=== PATIENT | female | born 1995 | race Caucasian/White ===

== ENCOUNTER 2017-11-09 17:15 | Emergency (ER) | payer MEDICAID ==
--- NOTE | 2017-11-09 17:26 | ED Physician Documentation ---
PD HPI CHEST PAIN - Stated complaint Stated Complaint: PALPITATIONS - Chief complaint Chief Complaint: Cardiac - History obtained from History obtained from: Patient - History of Present Illness Timing - onset: Other (21-year-old woman with history of SVT, she was on metoprolol but stopped it during , she delivered 11 months ago and since then has had increasing episodes of SVT, she restarted her metoprolol 25 mg twice a day. Over the last month to she started to have new palpitations, about once a day she feels like her heartbeat skips. It lasts for only seconds but then she has residual chest pain and weakness in the left arm for a minute or 2.) Review of Systems Constitutional: denies: Fever, Chills Cardiac: reports: Chest pain / pressure, Palpitations. denies: Pedal edema, Calf pain Respiratory: denies: Dyspnea, Cough, Hemoptysis, Wheezing GI: denies: Abdominal Pain PD PAST MEDICAL HISTORY - Present Medications Home Medications: Ambulatory Orders Medication Instructions Recorded Confirmed Metoprolol Tartrate [Lopressor] 25 mg pe PO BID 11/09/17 11/09/17 - Allergies Allergies/Adverse Reactions: Allergies Allergy/AdvReac Type Severity Reaction Status Date / Time Iodinated Contrast- Oral and Allergy Unknown Verified 11/09/17 17:25 IV Dye PD ED PE NORMAL - Vitals Vital signs reviewed: Yes - General General: Alert and oriented X 3, No acute distress - HEENT HEENT: PERRL, EOMI - Neck Neck: Supple, no meningeal sign, No bony TTP - Cardiac Cardiac: RRR, No murmur - Respiratory Respiratory: No respiratory distress, Clear bilaterally - Abdomen Abdomen: Non tender - Extremities Extremities: No edema, No calf tenderness / cord - Neuro Neuro: Alert and oriented X 3, Normal speech Results - Vitals Vitals: Vital Signs - 24 hr 11/09/17 11/09/17 17:20 18:12 Temperature 37.4 C Heart Rate 92 72 Respiratory 22 16 Rate Blood Pressure 152/89 H 115/74 O2 Saturation 97 97 Oxygen O2 Source Room air - EKG (time done) 1728 Rate: Rate (enter#) (74) Rhythm: NSR [place]: Normal Intervals: Normal [place] QRS: Normal Ischemia: Normal ST segments Computer interpretation: Agree with computer - Labs Labs: Laboratory Tests 11/09/17 11/09/17 11/09/17 17:40 17:40 18:05 WBC 8.8 RBC 4.55 Hgb 13.0 Hct 38.4 MCV 84.3 MCH 28.6 MCHC 33.9 RDW 13.6 Plt Count 239 MPV 9.0 Neut # (Auto) 5.6 Lymph # (Auto) 2.0 [place] # (Auto) 0.8 Eos # (Auto) 0.3 Baso # (Auto) 0.1 Absolute Nucleated RBC 0.00 Nucleated RBC % 0.0 Sodium Potassium Chloride Carbon Dioxide Anion Gap BUN Creatinine Estimated GFR (MDRD) Glucose Calcium Magnesium Total Bilirubin AST ALT Alkaline Phosphatase Total Protein Albumin Globulin Albumin/Globulin Ratio Lipase Urine Color YELLOW Urine Clarity CLEAR Urine pH 7.5 Ur Specific [place] 1.010 Urine Protein NEGATIVE Urine Glucose (UA) NEGATIVE Urine Ketones NEGATIVE Urine Occult Blood NEGATIVE Urine Nitrite NEGATIVE Urine Bilirubin NEGATIVE Urine Urobilinogen 0.2 (NORMAL) Ur Leukocyte Esterase NEGATIVE Ur Microscopic Review NOT INDICATED Urine Culture Comments NOT INDICATED Urine HCG, Qual NEGATIVE Urine Opiates Screen NEGATIVE Ur Oxycodone Screen NEGATIVE Urine Methadone Screen NEGATIVE Ur Propoxyphene Screen NEGATIVE Ur Barbiturates Screen NEGATIVE Ur Tricyclics Screen NEGATIVE Ur Phencyclidine Scrn NEGATIVE Ur Amphetamine Screen NEGATIVE U Methamphetamines Scrn NEGATIVE U Benzodiazepines Scrn NEGATIVE Urine Cocaine Screen NEGATIVE U Cannabinoids Screen NEGATIVE 11/09/17 18:05 WBC RBC Hgb Hct MCV MCH MCHC RDW Plt Count MPV Neut # (Auto) Lymph # (Auto) [place] # (Auto) Eos # (Auto) Baso # (Auto) Absolute Nucleated RBC Nucleated RBC % Sodium 139 Potassium 3.6 Chloride 106 Carbon Dioxide 23 Anion Gap 10.0 BUN 19 Creatinine 0.5 Estimated GFR (MDRD) 156 Glucose 91 Calcium 8.7 Magnesium 1.7 Total Bilirubin 0.4 AST 12 ALT 17 Alkaline Phosphatase 56 Total Protein 6.8 Albumin 3.5 Globulin 3.3 Albumin/Globulin Ratio 1.1 Lipase 22 Urine Color Urine Clarity Urine pH Ur Specific [place] Urine Protein Urine Glucose (UA) Urine Ketones Urine Occult Blood Urine Nitrite Urine Bilirubin Urine Urobilinogen Ur Leukocyte Esterase Ur Microscopic Review Urine Culture Comments Urine HCG, Qual Urine Opiates Screen Ur Oxycodone Screen Urine Methadone Screen Ur Propoxyphene Screen Ur Barbiturates Screen Ur Tricyclics Screen Ur Phencyclidine Scrn Ur Amphetamine Screen U Methamphetamines Scrn U Benzodiazepines Scrn Urine Cocaine Screen U Cannabinoids Screen PD MEDICAL DECISION MAKING - ED course ED course: Her description sounds like PVCs, around 6:20 PM she pressed the call vega and had felt 1. She was on the monitor and I rewound for about 5-10 minutes and saw no ectopy at all. - Sepsis Event Vital Signs: Vital Signs - 24 hr 11/09/17 11/09/17 17:20 18:12 Temperature 37.4 C Heart Rate 92 72 Respiratory 22 16 Rate Blood Pressure 152/89 H 115/74 O2 Saturation 97 97 Oxygen O2 Source Room air Departure - Departure Disposition: 01 Home, Self Care Clinical Impression: Heart palpitations Condition: Good Record reviewed to determine appropriate education?: Yes Instructions: ED Palpitations Comments: There were no abnormal heartbeats while you were monitored here. If you have persistent symptoms can talk with your doctor about a "Holter monitor" which you can wear for an extended period of time to identify any arrhythmias/ abnormal heart rhythms.
[2017-11-09 18:08] LABS: MUDS CUTOFF CONCENTRATIONS CUTOFF CONC BELOW:
[2017-11-09 18:11] LABS: BILIRUBIN,URINE NEGATIVE (NEGATIVE); GLUCOSE, URINE (UA) NEGATIVE (NEGATIVE); KETONES,URINE (UA) NEGATIVE (NEGATIVE); LEUKOCYTE ESTERASE, URINE NEGATIVE (NEGATIVE); NITRITE,URINE NEGATIVE (NEGATIVE); OCCULT BLOOD,URINE NEGATIVE (NEGATIVE); PH,URINE 7.5 PH (5.0-7.5); PROTEIN,URINE NEGATIVE (NEGATIVE); UROBILINOGEN,URINE 0.2 (NORMAL) E.U./dL (NORMAL)
[2017-11-09 18:13] LABS: CLARITY,URINE CLEAR (CLEAR); HCG UR QUAL NEGATIVE
[2017-11-09 18:13] LABS: BASOPHILS # (AUTO) 0.1 10^3/uL (0.0-0.1); BASOPHILS % (AUTO) 0.7 %; EOSINOPHILS # (AUTO) 0.3 10^3/uL (0.0-0.7); EOSINOPHILS % (AUTO) 3.9 %; LYMPHOCYTES % (AUTO) 23.1 %; MEAN CORPUSCULAR HEMOGLOBIN 28.6 pg (27.0-31.0); MEAN CORPUSCULAR HGB CONC 33.9 g/dL (32.0-36.0); MEAN CORPUSCULAR VOLUME 84.3 fL (81.0-99.0); MONOCYTES # (AUTO) 0.8 10^3/uL (0.0-1.0); MONOCYTES % (AUTO) 9.2 %; NEUTROPHILS # (AUTO) 5.6 10^3/uL (1.5-6.6); NEUTROPHILS % (AUTO) 63.1 %; PLT - PLATELET COUNT 239 10^3/uL (130-450); RED BLOOD COUNT 4.55 10^6/uL (4.20-5.40); RED CELL DISTRIBUTION WIDTH 13.6 % (12.0-15.0); WHITE BLOOD COUNT 8.8 x10^3/uL (4.8-10.8)
[2017-11-09 18:20] LABS: AMPHETAMINE SCREEN,URINE NEGATIVE (NEGATIVE); BENZODIAZEPINES SCREEN, URINE NEGATIVE (NEGATIVE); COCAINE SCREEN URINE NEGATIVE (NEGATIVE); METHADONE SCREEN, URINE NEGATIVE (NEGATIVE); METHAMPHETAMINES SCREEN, URINE NEGATIVE (NEGATIVE); OPIATE SCREEN, URINE NEGATIVE (NEGATIVE); OXYCODONE SCREEN, URINE NEGATIVE (NEGATIVE); TRICYCLIC ANTIDEPRESSANT,URINE NEGATIVE (NEGATIVE)
[2017-11-09 18:21] LABS: PROPOXYPHENE SCREEN, URINE NEGATIVE (NEGATIVE)
[2017-11-09 18:24] LABS: ALBUMIN 3.5 g/dL (3.2-5.5); ALBUMIN/GLOBULIN RATIO 1.1 (1.0-2.2); BILIRUBIN,TOTAL 0.4 mg/dL (0.2-1.0); CALCIUM 8.7 mg/dL (8.5-10.3); CREATININE 0.5 mg/dL (0.4-1.0); MAGNESIUM 1.7 mg/dL (1.7-2.8); TOTAL PROTEIN 6.8 g/dL (6.7-8.2)
[2017-11-09 18:52] VITALS: BP 116/76
== END 2017-11-09 18:51 | disposition home or self-care (01) ==
LOC: ED 17:15
DX: R00.2 Palpitations (principal)
CPT/HCPCS: 36415; 80053; 80306; 81001; 81003; 81025; 83690; 83735; 84443; 85025; 87086; 93005; 99283

== ENCOUNTER 2017-12-11 00:19 | Emergency (ER) | payer MEDICAID ==
[2017-12-11 00:32] VITALS: BP 114/79
[2017-12-11 00:42] LABS: BILIRUBIN,URINE NEGATIVE (NEGATIVE); GLUCOSE, URINE (UA) NEGATIVE (NEGATIVE); KETONES,URINE (UA) NEGATIVE (NEGATIVE); LEUKOCYTE ESTERASE, URINE NEGATIVE (NEGATIVE); NITRITE,URINE NEGATIVE (NEGATIVE); OCCULT BLOOD,URINE NEGATIVE (NEGATIVE); PROTEIN,URINE NEGATIVE (NEGATIVE); UROBILINOGEN,URINE 0.2 (NORMAL) E.U./dL (NORMAL)
[2017-12-11 00:44] LABS: CLARITY,URINE CLEAR (CLEAR); HCG UR QUAL NEGATIVE
[2017-12-11] MEDS ORDERED: IBUPROFEN 600 MG TABLET PO STA (00:53)
--- NOTE | 2017-12-11 00:57 | ED Physician Documentation ---
PD HPI FEMALE - Stated complaint Stated Complaint: LOWER ABDOMINAL PAIN - Chief complaint Chief Complaint: Abd Pain - History obtained from History obtained from: Patient - History of Present Illness Timing - onset: Today Timing - details: Gradual onset, Still present Associated symptoms: Pelvic pain Similar symptoms before: Has not had sx before Recently seen: Not recently seen - Additional information Additional information: Patient is a 21 year old female who is presenting to the emergency department for pelvic pain. According to patient and partner they had intercourse this evening and now patient has pelvic pain. patient and partner say that it was rougher than usual. Review of Systems Ten Systems: 10 systems reviewed and negative : reports: Other (pelvic pain). denies: Vaginal bleeding PD PAST MEDICAL HISTORY - Past Medical History Past Medical History: Yes Cardiovascular: Other CREDIT PROCESSOR: None Other Past Medical History: Tachycardia - Past Surgical History Past Surgical History: Yes /CREDIT PROCESSOR: section - Present Medications Home Medications: Ambulatory Orders Medication Instructions Recorded Confirmed Metoprolol Tartrate [Lopressor] 25 mg pe PO BID 11/09/17 12/11/17 - Allergies Allergies/Adverse Reactions: Allergies Allergy/AdvReac Type Severity Reaction Status Date / Time Iodinated Contrast- Oral and Allergy Unknown Verified 12/11/17 00:37 IV Dye - Social History Does the pt smoke?: Yes Smoking Status: Current every day smoker Does the pt drink ETOH?: Yes Does the pt have substance abuse?: No - Immunizations Immunizations are current?: Yes - POLST Patient has POLST: No PD ED PE NORMAL - Vitals Vital signs reviewed: Yes - General General: Alert and oriented X 3, No acute distress - HEENT HEENT: Atraumatic - Cardiac Cardiac: RRR - Respiratory Respiratory: No respiratory distress - Abdomen Abdomen: Soft, Non tender, Non distended - Female Female : Manager Safe present - Derm Derm: Normal color, Warm and dry - Extremities Extremities: No deformity - Neuro Neuro: Alert and oriented X 3 PD ED PE EXPANDED - Female Female : Normal external, Normal exam. No: Vaginal Bleeding Results - Vitals Vitals: Vital Signs - 24 hr 12/11/17 00:27 Temperature 36.1 C L Heart Rate 72 Respiratory 16 Rate Blood Pressure 114/79 O2 Saturation 99 Oxygen O2 Source Room air - Labs Labs: Laboratory Tests 12/11/17 00:33 Urine Color YELLOW Urine Clarity CLEAR Urine pH 6.0 Ur Specific [place] 1.025 Urine Protein NEGATIVE Urine Glucose (UA) NEGATIVE Urine Ketones NEGATIVE Urine Occult Blood NEGATIVE Urine Nitrite NEGATIVE Urine Bilirubin NEGATIVE Urine Urobilinogen 0.2 (NORMAL) Ur Leukocyte Esterase NEGATIVE Ur Microscopic Review NOT INDICATED Urine Culture Comments NOT INDICATED Urine HCG, Qual NEGATIVE PD MEDICAL DECISION MAKING - ED course Complexity details: reviewed old records, considered differential, d/w patient ED course: corina nixon seen and examined at bedside. patient was well appearing and in no distress. Pelvic exam was within normal limits. patient was treated with ibuprofen for pain. Patient required no further work up and was stable for discharge with outpatient follow up. - Sepsis Event Vital Signs: Vital Signs - 24 hr 12/11/17 00:27 Temperature 36.1 C L Heart Rate 72 Respiratory 16 Rate Blood Pressure 114/79 O2 Saturation 99 Oxygen O2 Source Room air Departure - Departure Disposition: 01 Home, Self Care Clinical Impression: Pelvic pain Condition: Good Instructions: ED Pelvic Pain [facility] Follow-Up: primary,care provider [Other] Comments: Your exam was within normal limits. there are no serious traumatic injuries. You can take motrin 600mg or tylenol 1000mg as needed for pain. You should followup with your doctor if symptoms persist. You may return to the emergency department at any time for new, worsening or uncontrollable symptoms.
== END 2017-12-11 01:07 | disposition home or self-care (01) ==
LOC: ED 00:19
DX: R10.2 Pelvic and perineal pain (principal); F17.200 Nicotine dependence, unspecified, uncomplicated
CPT/HCPCS: 81003; 81025; 99282; 99283; A9270; 81001; 87086

== ENCOUNTER 2017-12-24 06:07 | Day surgery (SDC) | payer MEDICAID ==
[2017-12-24] MEDS ORDERED: ONDANSETRON 4 MG/2 ML VIAL IVP STA ×2 (06:41→09:16)
[2017-12-24 07:04] LABS: GLUCOSE, URINE (UA) NEGATIVE (NEGATIVE); KETONES,URINE (UA) NEGATIVE (NEGATIVE); LEUKOCYTE ESTERASE, URINE NEGATIVE (NEGATIVE); NITRITE,URINE NEGATIVE (NEGATIVE); OCCULT BLOOD,URINE MODERATE (NEGATIVE); PROTEIN,URINE NEGATIVE (NEGATIVE); UROBILINOGEN,URINE 0.2 (NORMAL) E.U./dL (NORMAL)
[2017-12-24 07:10] LABS: BILIRUBIN,URINE NEGATIVE (NEGATIVE); CLARITY,URINE CLEAR (CLEAR); HCG UR QUAL NEGATIVE; ICTOTEST,URINE NEGATIVE
[2017-12-24 07:11] LABS: BASOPHILS # (AUTO) 0.1 10^3/uL (0.0-0.1); BASOPHILS % (AUTO) 0.6 %; EOSINOPHILS # (AUTO) 0.3 10^3/uL (0.0-0.7); EOSINOPHILS % (AUTO) 2.7 %; HGB - HEMOGLOBIN 13.3 g/dL (12.0-16.0); LYMPHOCYTES # (AUTO) 1.9 10^3/uL (1.5-3.5); LYMPHOCYTES % (AUTO) 16.3 %; MEAN CORPUSCULAR HEMOGLOBIN 28.7 pg (27.0-31.0); MEAN CORPUSCULAR VOLUME 84.5 fL (81.0-99.0); MEAN PLATELET VOLUME 8.8 fL (7.9-10.8); MONOCYTES # (AUTO) 0.8 10^3/uL (0.0-1.0); MONOCYTES % (AUTO) 7.2 %; NEUTROPHILS # (AUTO) 8.6 10^3/uL (1.5-6.6); NEUTROPHILS % (AUTO) 73.2 %; PLT - PLATELET COUNT 276 10^3/uL (130-450); RED BLOOD COUNT 4.63 10^6/uL (4.20-5.40); RED CELL DISTRIBUTION WIDTH 13.4 % (12.0-15.0); WHITE BLOOD COUNT 11.7 x10^3/uL (4.8-10.8)
[2017-12-24 07:20] LABS: BACTERIA,URINE Rare /HPF (None Seen); SQUAMOUS EPITHELIAL CELL,UR FEW Squamous (<= Few)
[2017-12-24 07:27] LABS: ALBUMIN/GLOBULIN RATIO 1.2 (1.0-2.2); BILIRUBIN,TOTAL 0.5 mg/dL (0.2-1.0); CALCIUM 8.8 mg/dL (8.5-10.3); CREATININE 0.6 mg/dL (0.4-1.0); TOTAL PROTEIN 7.3 g/dL (6.7-8.2)
[2017-12-24] MEDS ORDERED: ACETAMINOPHEN 1,000 MG/100 ML 100 ML IV STA (07:30)
--- NOTE | 2017-12-24 07:32 | ED Physician Documentation ---
History of Present Illness - Stated complaint Stated Complaint: ABDOMINAL PAIN - Chief complaint Chief Complaint: Abd Pain - Additonal information Additional information: hx from pt 21 f LMP just ending abd pain since yesterday was generalized now RLQ no fever + NV no diarrhea no dysuria prior surgery C section and kidney stents denies preg this does not feel like her kidney stones seen 2 weeks ago for pelvic pain after intercourse and had pelvic exam then denies preg and not breast feeding Review of Systems Constitutional: denies: Fever, Chills Cardiac: denies: Chest pain / pressure Respiratory: denies: Dyspnea GI: reports: Abdominal Pain, Nausea, Vomiting. denies: Diarrhea : denies: Dysuria, Now EGA Musculoskeletal: reports: Back pain Endocrine: denies: Easy bruising / bleeding Immunocompromised: denies: Immunocompromised PD PAST MEDICAL HISTORY - Past Medical History Cardiovascular: Hypertension, High cholesterol, Other Respiratory: None Neuro: None Endocrine/Autoimmune: None GI: None SHIRT TURNER: None : None HEENT: None Psych: None Musculoskeletal: None Derm: None - Past Surgical History Past Surgical History: Yes /SHIRT TURNER: section - Present Medications Home Medications: Ambulatory Orders Medication Instructions Recorded Confirmed Metoprolol Tartrate [Lopressor] 25 mg pe PO BID 11/09/17 12/24/17 - Allergies Allergies/Adverse Reactions: Allergies Allergy/AdvReac Type Severity Reaction Status Date / Time Iodinated Contrast- Oral and Allergy Unknown Verified 12/11/17 00:37 IV Dye morphine Allergy Hives Verified 12/24/17 09:33 - Social History Does the pt smoke?: Yes Smoking Status: Current every day smoker Does the pt drink ETOH?: Yes Does the pt have substance abuse?: No - Immunizations Immunizations are current?: Yes - POLST Patient has POLST: No PD ED PE NORMAL - Vitals Vital signs reviewed: Yes - Neck Neck: Supple, no meningeal sign - Cardiac Cardiac: RRR - Respiratory Respiratory: No respiratory distress, Clear bilaterally - Abdomen Abdomen: Soft, Other (TTP RLQ with vol guarding and rebound) - Back Back: No CVA TTP - Derm Derm: Normal color - Extremities Extremities: No deformity - Neuro Neuro: Alert and oriented X 3 Results - Vitals Vitals: Vital Signs - 24 hr 12/24/17 06:13 Temperature 36.7 C Heart Rate 85 Respiratory 18 Rate Blood Pressure 130/78 O2 Saturation 98 Oxygen O2 Source Room air - Labs Labs: Laboratory Tests 12/24/17 12/24/17 12/24/17 06:16 06:58 06:58 WBC 11.7 H RBC 4.63 Hgb 13.3 Hct 39.1 MCV 84.5 MCH 28.7 MCHC 34.0 RDW 13.4 Plt Count 276 MPV 8.8 Neut # (Auto) 8.6 H Lymph # (Auto) 1.9 [place] # (Auto) 0.8 Eos # (Auto) 0.3 Baso # (Auto) 0.1 Absolute Nucleated RBC 0.00 Nucleated RBC % 0.0 Sodium 137 Potassium 3.5 Chloride 107 Carbon Dioxide 22 Anion Gap 8.0 BUN 13 Creatinine 0.6 Estimated GFR (MDRD) 126 Glucose 92 Calcium 8.8 Total Bilirubin 0.5 AST 12 ALT 20 Alkaline Phosphatase 67 Total Protein 7.3 Albumin 4.0 Globulin 3.3 Albumin/Globulin Ratio 1.2 Lipase 23 Urine Color DARK YELLOW Urine Clarity CLEAR Urine pH 6.0 Ur Specific [place] >=1.030 H Urine Protein NEGATIVE Urine Glucose (UA) NEGATIVE Urine Ketones NEGATIVE Urine Occult Blood MODERATE H Urine Nitrite NEGATIVE Urine Bilirubin NEGATIVE Urine Urobilinogen 0.2 (NORMAL) Ur Leukocyte Esterase NEGATIVE Urine RBC 6-10 H Urine WBC 0-3 Ur Squamous Epith Cells FEW Squamous Urine Bacteria Rare Ur Microscopic Review INDICATED Urine Culture Comments NOT INDICATED Urine HCG, Qual NEGATIVE - Rads (name of study) CT AP Radiology: See rad report (acute appy) PD MEDICAL DECISION MAKING - ED course ED course: pt developed hives 2/2 morphine gave benadryl and added morphine to allergies CT shows avute appy gavce cleopatrasyn and called surgeon at 1215 - Sepsis Event Vital Signs: Vital Signs - 24 hr 12/24/17 06:13 Temperature 36.7 C Heart Rate 85 Respiratory 18 Rate Blood Pressure 130/78 O2 Saturation 98 Oxygen O2 Source Room air Departure - Departure Disposition: ED Transfer to [facility] Clinical Impression: Appendicitis Qualifiers: Appendicitis type: acute appendicitis Acute appendicitis type: unspecified acute appendicitis type Qualified Code(s): K35.80 - Unspecified acute appendicitis
[2017-12-24] MEDS ORDERED: MORPHINE 2 MG/ML CARPUJECT IVP STA (09:16)
[2017-12-24] MEDS ORDERED: diphenhydrAMINE INJ 50 MG/ML VIAL IVP STA (09:34)
--- NOTE | 2017-12-24 10:36 | CT Report ---
Reason: rlq pain with barium oral contrast please Procedure Date: 12/24/2017 Accession Number: [id number] / [id number] Procedure: CT - Abdomen/Pelvis W/O CPT Code: FULL RESULT: EXAM: CT ABDOMEN AND PELVIS EXAM DATE: 12/24/2017 10:08 AM. CLINICAL HISTORY: Right lower quadrant abdominal pain with barium oral contrast please. COMPARISONS: None. TECHNIQUE: Routine helical CT imaging was performed through the abdomen and pelvis. IV contrast: None. Enteric contrast: Yes. Reconstructions: Coronal and sagittal. In accordance with CT protocol optimization, one or more of the following dose reduction techniques were utilized for this exam: automated exposure control, adjustment of mA and/or KV based on patient size, or use of iterative reconstructive technique. FINDINGS: Lung Bases: Unremarkable. Liver: Unremarkable noncontrast appearance. Gallbladder/Bile Ducts: Unremarkable. Spleen: Unremarkable. Pancreas: Unremarkable. Adrenal Glands: Unremarkable. Kidneys: No hydronephrosis, calculi, or contour deforming renal mass. Peritoneal Cavity/Bowel: No free fluid, free air or adenopathy. No evidence of bowel obstruction. Enteric contrast has reached the mid transverse colon. The appendix is mildly dilated up to 9 mm in diameter (series 5 image 28). There is minimal adjacent fat stranding. No adjacent free fluid or contained fluid collection. Pelvic Organs: Normal. The bladder and visualized pelvic organs are within normal limits. Vasculature: No aneurysms or other significant abnormality. Bones: No significant abnormality. Other: None. IMPRESSION: Findings suspicious for acute appendicitis. No evidence of perforation or abscess formation. RADIA
[2017-12-24] MEDS ORDERED: PIPERACILLIN/TAZOBACTAM 3.375 GM in SODIUM CHLORIDE 0.9% MINIBAG 100 ML IV STA (12:13)
[2017-12-24] MEDS ORDERED: BUPIVACAINE 0.25%-EPI 1:200000 PF 30 ML VIAL ONE (12:39)
--- NOTE | 2017-12-24 13:02 | CONSULTATION NOTE ---
Referring Provider Name of Referring Provider:: Dr. Cortes Consult Date: 12/24/17 Chief Complaint - Chief Complaint Chief Complaint: abd pain History of Present Illness - Admitted From Admitted From:: ER - History Obtained From Records Reviewed: yes History obtained from: pt, records Exam Limitations: none - History of Present Illness HPI Comment/Other: 21 yo [id number] female LMP 12/19/2017 with acute onset of periumbilical and RLQ abd pain yesterday evening at approx 7pm. The pain is constant, steady and sharp in nature, and worsened early this am associated with N/V of bilious material x 4, prompting evaluation in the ER today. Nl bm yesterday, no dysuria or respiratory sx; no unusual po intake, no others in household with similar sx; no recent wt loss. She has a hx of nephrolithiasis but current sx different; no abnormal vaginal discharge. No fever but she noted chills. Finished her menstrual period yesterday; evaluation with CT abd/pelvis today shows mildly dilated abnormal appearing appendix with mild surrounding inflammatory changes c/w nonperforated appendicitis; ow nl. History - Past Medical History Cardiovascular: reports: Hypertension, High cholesterol, Arrhythmia (SVT), Other Respiratory: reports: None Neuro: reports: None Endocrine/Autoimmune: reports: None GI: reports: None ELECTRICAL DRAFTER: reports: None : reports: Kidney stones (treated with ureteral stents in past) HEENT: reports: None Psych: reports: None Musculoskeletal: reports: None Derm: reports: None MRSA Hx?: No - Past Surgical History /ELECTRICAL DRAFTER: reports: section, Other (ureteral stents) - Family & Social History Family History Comment/Other: neg for appendicitis or GI tumors Living arrangement: At home Living Situation: With family - Substance History Use: Uses substance without health or social issues: Tobacco (1/2 ppd), Alcohol (less than one drink daily) Abuse: Recurrent use of substance despite neg consequences: NONE Dependence: Experiences withdrawal or developed tolerances: NONE Tobacco Details: Cigarettes - POLST Patient has POLST: No POLST Status: Full Code Meds/Allgy - Home Medications Home Medications: Ambulatory Orders Medication Instructions Recorded Confirmed Metoprolol Tartrate [Lopressor] 25 mg pe PO BID 11/09/17 12/24/17 - Allergies Allergies/Adverse Reactions: Allergies Allergy/AdvReac Type Severity Reaction Status Date / Time Iodinated Contrast- Oral and Allergy Unknown Verified 12/11/17 00:37 IV Dye morphine Allergy Hives Verified 12/24/17 09:33 Review of Systems - Constitutional Constitutional: reports: Weight gain (20# over past few months) - Cardiovascular Cariovascular: reports: Palpitations (rare) - Gastrointestinal Gastrointestinal: reports: Abdominal pain, Nausea, Vomiting, Bile emesis. d enies: Constipation, Diarrhea, Change in bowel habits, Rectal bleeding, Black stools, Bloody stools, [place] blood emesis, Coffee grounds emesis - Genitourinary Genitourinary: denies: Dysuria, Frequency, Urgency, Hematuria - Hematologic/Lymphatic Hematologic/Lymphatic: denies: Blood clots, Bleeding tendencies - All Other Systems All Other Systems: reports: Reviewed and negative Exam - Vital Signs Reviewed Vital Signs: Yes Vital Signs: Vital Signs x48h Temp Pulse Resp BP Pulse Ox 12/24/17 12:18 36.7 C 66 16 126/82 H 100 12/24/17 06:13 36.7 C 85 18 130/78 98 - Physical Exam General Appearance: positive: Moderate distress, Anxious Eyes Bilateral: positive: Conjunctivae nml, No scleral icterus ENT: positive: ENT inspection nml, Pharynx nml, No signs of dehydration Neck: positive: Nml inspection, Thyroid nml, No JVD, Trachea midline. negative: Thyromegaly, Lymphadenopathy (R), Lymphadenopathy (L) Respiratory: positive: Chest non-tender, No respiratory distress, Breath sounds nml Cardiovascular: positive: Regular rate & rhythm, No murmur, No gallop Peripheral Pulses: positive: 2+ Abdomen: positive: Nml bowel sounds, No distention (obese), Tenderness (RLQ with guarding/rebound and +Rovsing's sign; neg obturator/psoas signs), Guarding, Rebound. negative: Hepatomegaly, Splenomegaly, Mass Back: positive: Nml inspection. negative: CVA tenderness (R), CVA tenderness (L) Skin: positive: Color nml, No rash, Warm, Dry. negative: Cyanosis Extremities: positive: Nml appearance, No pedal edema. negative: Calf tenderness Neurologic/Psychiatric: positive: Oriented x3 Conclusion/Plan - Diagnosis Diagnosis: Acute abdomen due to acute appendicitis; no evidence of complicated disease at present. - Plan Plan: To OR for lap appy. LIU ferris with pt and consent obtained. Thanks, - Lab Results Lab results reviewed: Yes Fish Bones: 12/24/17 06:58 12/24/17 06:58 Other Lab Results: lfts, lipase nl; UA: microhematuria ow neg. - Diagnostic Imaging Results Diagnostic Imaging Results: positive: Final report reviewed, Read independently Diagnostic Imaging Results Comments: see HPI - EKG Results EKG Interpreted Independently: No EKG Comparison: No prior EKG EKG Findings: NSR no acute changes
[2017-12-24] MEDS ORDERED: KETOROLAC 30 MG/ML VIAL IVP STA (13:13)
[2017-12-24] MEDS ORDERED: HYDROmorphone 1 MG/ML CARPUJECT IVP STA (13:26)
--- NOTE | 2017-12-24 13:31 | ANESTHESIA ---
Pre-Anesthesia VS, & Labs - Diagnosis Diagnosis Acute abdomen due to acute appendicitis; no evidence of complicated disease at present. - Procedure laparoscopic appendectomy Vital Signs: Temp Pulse Resp BP Pulse Ox 36.7 C 66 16 126/82 H 100 12/24/17 12:18 12/24/17 12:18 12/24/17 12:18 12/24/17 12:18 12/24/17 12:18 Height 5 ft 1 in Weight (kg) 87 kg Body Mass Index 36.2 - NPO >8 hours - Is Patient ?: No - Lab Results Current Lab Results: Laboratory Tests 12/24/17 06:58: Sodium 137, Potassium 3.5, Chloride 107, Carbon Dioxide 22, Anion Gap 8.0, BUN 13, Creatinine 0.6, Estimated GFR (MDRD) 126, Glucose 92, Calcium 8.8, Total Bilirubin 0.5, AST 12, ALT 20, Alkaline Phosphatase 67, Total Protein 7.3, Albumin 4.0, Globulin 3.3, Albumin/Globulin Ratio 1.2, Lipase 23 12/24/17 06:58: WBC 11.7 H, RBC 4.63, Hgb 13.3, Hct 39.1, MCV 84.5, MCH 28.7, MCHC 34.0, RDW 13.4, Plt Count 276, MPV 8.8, Neut # (Auto) 8.6 H, Lymph # (Auto) 1.9, [place] # (Auto) 0.8, Eos # (Auto) 0.3, Baso # (Auto) 0.1, Absolute Nucleated RBC 0.00, Nucleated RBC % 0.0 Fish Bones: 12/24/17 06:58 12/24/17 06:58 Home Medications and Allergies Home Medications: Ambulatory Orders Medication Instructions Recorded Confirmed Metoprolol Tartrate [Lopressor] 25 mg pe PO BID 11/09/17 12/24/17 Active Medications Nicotine (Nicoderm) 1 patch TOP DAILY ROXANE Metoprolol Tartrate [Lopressor] 25 mg pe PO BID 11/09/17 Allergies/Adverse Reactions: Allergies Allergy/AdvReac Type Severity Reaction Status Date / Time Iodinated Contrast- Oral and Allergy Unknown Verified 12/11/17 00:37 IV Dye morphine Allergy Hives Verified 12/24/17 09:33 Anes History & Medical History - Anesthetic History Anesthesia Complications: reports: No previous complications Family history of Anesthesia Complications: Denies Family history of Malignant Hyperthermia: Denies - Medical History Cardiovascular: reports: Hypertension, High cholesterol, Arrhythmia (SVT), Other Pulmonary: reports: None Gastrointestinal: reports: None Urinary: reports: Kidney stones (treated with ureteral stents in past) Neuro: reports: None Musculoskeletal: reports: None Endocrine/Autoimmune: reports: None Blood Disorders: reports: None Skin: reports: None Smoking Status: Current every day smoker - Surgical History Urologic: Kidney stents Gynecologic: section, Other (ureteral stents) Exam General: Alert Dental: WNL Mouth Openin Fingerbreadth Neck Mobility: Normal Mallampati classification: III Thyromental Distance: 4-6 cm Respiratory: Lungs clear, Normal breath sounds, No respiratory distress, No accessory muscle use Cardiovascular: Regular rate, Normal S1, Normal S2, No murmurs Mental/Cognitive Status: Alert/Oriented X3, Normal for patient Cognitive Status: Within normal limits Plan Anesthesia Type: General Consent for Procedure(s) Verified and Reviewed: Yes Code Status: Attempt Resuscitation ASA classification: 2-Mild systemic disease Is this case an emergency?: No
[2017-12-24] MEDS ORDERED: LACTATED RINGERS 1,000 ML IV ONE ×2 (13:46→14:54)
[2017-12-24] MEDS ORDERED: PROPOFOL 200 MG/20 ML VIAL IVP ONE (14:12)
[2017-12-24] MEDS ORDERED: NEOSTIGMINE 1 MG/1 ML 10 ML MDV IVP ONE (14:12)
[2017-12-24] MEDS ORDERED: ROCURONIUM 50 MG/5 ML VIAL IVP ONE (14:12)
[2017-12-24] MEDS ORDERED: GLYCOPYRROLATE 1 MG/5 ML VIAL IVP ONE (14:12)
[2017-12-24] MEDS ORDERED: LIDOCAINE-MPF 2% 5 ML VIAL IM ONE (14:12)
[2017-12-24] MEDS ORDERED: BUPIVACAINE 0.25%-EPI 1:200000 PF 10 ML VIAL SUBQ ONE ×2 (14:29)
[2017-12-24] MEDS ORDERED: ONDANSETRON 4 MG/2 ML VIAL IVP PRN (14:48)
[2017-12-24] MEDS ORDERED: oxyCODONE 5 MG TABLET PO PRN (14:48)
[2017-12-24] MEDS ORDERED: ACETAMINOPHEN 325 MG TABLET PO PRN (14:48)
[2017-12-24] MEDS ORDERED: IBUPROFEN 600 MG TABLET PO PRN (14:48)
[2017-12-24] MEDS ORDERED: PROMETHAZINE 25 MG/1 ML VIAL ONE (15:34)
[2017-12-24] MEDS ORDERED: DEXAMETHASONE 4 MG/ML VIAL ONE (15:49)
[2017-12-24 17:12] VITALS: BP 107/62
[2017-12-24] MEDS ORDERED: IBUPROFEN 600 MG TABLET PO ONE (17:17)
--- NOTE | 2017-12-24 23:34 | OPERATIVE REPORT ---
DATE OF SERVICE: 12/24/2017 Physician: Yimi Brito MD PREOPERATIVE DIAGNOSIS: Acute appendicitis. POSTOPERATIVE DIAGNOSIS: Acute appendicitis. PROCEDURE PERFORMED: Laparoscopic appendectomy. ANESTHESIA: General endotracheal by Dr. Marie. SURGEON: Yimi Brito MD. ESTIMATED BLOOD LOSS: Minimal. COMPLICATIONS: None. FINDINGS: Laparoscopy revealed a mildly indurated and inflamed intraperitoneal appendix located in a retroileal position. The visualized portions of the small and large bowel including the cecum. The terminal ileum, liver, stomach, and gallbladder appeared normal. INDICATIONS: The patient is a 21-year-old woman with approximately an 18-hour history of periumbilic al pain, which localized to the right lower quadrant. It was associated with right lower quadrant pe ritoneal signs, mild leukocytosis and a CT scan showing an abnormal appendix consistent with early ap pendicitis. She was diagnosed having acute appendicitis and advised to undergo laparoscopic appendec ginny for definitive therapy. TECHNIQUE: After informed consent, the patient was taken to the operating room where she was placed under general endotracheal anesthesia. Preoperative preparation included administration of 3.375 gra ms of Zosyn intravenously and application of sequential calf compression boots. Her abdomen was prep ared with ChloraPrep solution and draped in the usual sterile fashion. A transverse incision was mad e along inferior to the umbilicus and carried down through the layers of the abdominal wall. The per itoneum was identified and entered sharply. A 10 mm Jonh cannula was inserted and pneumoperitoneum achieved with carbon dioxide. A 10 mm 30-degree Alistair telescope was inserted. Laparoscopy was ca rried out. Findings were as noted above. Two additional 5 mm ports were placed in lower midline and left lower quadrant. Instruments were passed. The appendix was exposed, grasped and retracted, exp osing the mesoappendix, which was ligated and divided with the LigaSure device. Once the junction of the appendix with the cecal base had been fully exposed and mobilized, the laparoscopic 45 mm stapli ng and ligating device with the 2.4 mm staple load was used to ligate and divide the appendix at its junction with the cecal base. This also provided hemostasis. The appendix was placed in an organ re trieval bag, extracted and sent for pathologic evaluation. After hemostasis was assured, the right u pper quadrant was copiously irrigated with saline solution, following which instruments and cannulas were removed under direct vision. Pneumoperitoneum was allowed to escape and the incisions were clos ed in layers using continuous 0 Vicryl, reapproximated the midline fascia at the umbilicus, followed by a 4-0 Monocryl subcuticular skin closure and Dermabond. A total of 20 mL of 0.5% Marcaine with ep inephrine was infiltrated into the incision to assist in postoperative analgesia. Anesthesia was ter minated and patient transferred to the recovery room in satisfactory condition. Sponge and needle co unts were correct and no drains were used. TD: 12/24/2017 15:05
[2017-12-25] MEDS ORDERED: NICOTINE 7 MG PATCH TOP SCH (09:00)
== END 2017-12-24 12:46 | disposition home or self-care (01) ==
LOC: ED 06:07 → SDS 12:45
PROVIDERS: ATTEND Internal Medicine Gastroenterology
PROC: 0DTJ4ZZ Resection of Appendix, Percutaneous Endoscopic Approach (ICD-10-PCS; principal; 2017-12-24 12:45)
DX: K35.80 Unspecified acute appendicitis (principal); I10 Essential (primary) hypertension; I47.1 Supraventricular tachycardia; F17.210 Nicotine dependence, cigarettes, uncomplicated; E78.00 Pure hypercholesterolemia, unspecified
CPT/HCPCS: 36415; 44970; 74176; 80053; 81001; 81025; 83690; 85025; 93005; 96365; 96367; 96375; 99283; 99284; A9270; J0131; J1170; J1200; J7120; 81003; 87086

== ENCOUNTER 2018-01-30 16:34 | Emergency (ER) | payer MEDICAID ==
[2018-01-30] MEDS ORDERED: SODIUM CHLORIDE 0.9% 1,000 ML IV STA (16:53)
--- NOTE | 2018-01-30 17:20 | ED Physician Documentation ---
PD HPI FEMALE - Stated complaint Stated Complaint: N/V- 6 WKS - Chief complaint Chief Complaint: Abd Pain - History obtained from History obtained from: Patient - History of Present Illness Timing - onset: How many days ago (several days) Timing - duration: Days Timing - details: Gradual onset Pain level max: 6 Pain level max: 5 Associated symptoms: Pelvic pain (cramping). 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: G (3), P (1), Miscarriage(s) (1) Recently seen: Not recently seen Review of Systems Constitutional: denies: Fever, Chills Ears: denies: Ear pain Nose: denies: Rhinorrhea / runny nose, Congestion Throat: denies: Sore throat Cardiac: denies: Chest pain / pressure Respiratory: denies: Cough GI: denies: Abdominal Pain, Nausea, Vomiting, Diarrhea Skin: denies: Rash Musculoskeletal: denies: Neck pain, Back pain Neurologic: denies: Focal weakness, Numbness, Headache PD PAST MEDICAL HISTORY - Past Medical History Cardiovascular: Hypertension, High cholesterol, Arrhythmia (SVT), Other Respiratory: None Neuro: None Endocrine/Autoimmune: None GI: None LABORER SHIPYARD: None : Kidney stones (treated with ureteral stents in past) HEENT: None Psych: None Musculoskeletal: None Derm: None - Past Surgical History Past Surgical History: Yes /LABORER SHIPYARD: section, Other (ureteral stents) - Present Medications Home Medications: Ambulatory Orders Medication Instructions Recorded Confirmed Metoprolol Tartrate [Lopressor] 25 mg pe PO BID 11/09/17 12/24/17 - Allergies Allergies/Adverse Reactions: Allergies Allergy/AdvReac Type Severity Reaction Status Date / Time Iodinated Contrast- Oral and Allergy Unknown Verified 01/30/18 19:12 IV Dye morphine Allergy Hives Verified 01/30/18 19:12 metoclopramide [From Reglan] AdvReac Anxiety Verified 01/30/18 19:12 - Social History Does the pt smoke?: Yes Smoking Status: Current every day smoker Does the pt drink ETOH?: Yes Does the pt have substance abuse?: No - Immunizations Immunizations are current?: Yes - POLST Patient has POLST: No POLST Status: Full Code PD ED PE NORMAL - Vitals Vital signs reviewed: Yes - General General: Alert and oriented X 3, No acute distress - HEENT HEENT: Moist mucous membranes - Neck Neck: Supple, no meningeal sign - Cardiac Cardiac: RRR, Strong equal pulses - Respiratory Respiratory: No respiratory distress, Clear bilaterally - Abdomen Abdomen: Soft, Non distended, Other (Mild tender palpation right low pelvic. No peritoneal signs) - Female Female : Pt declined - Back Back: No CVA TTP, No spinal TTP - Derm Derm: Warm and dry - Neuro Neuro: Alert and oriented X 3 - Psych Psych: Normal mood, Normal affect Results - Vitals Vitals: Vital Signs - 24 hr 01/30/18 01/30/18 16:48 19:16 Temperature 36.8 C Heart Rate 86 70 Respiratory 18 16 Rate Blood Pressure 127/79 122/77 O2 Saturation 98 99 Oxygen O2 Source Room air - Labs Labs: Laboratory Tests 01/30/18 01/30/18 01/30/18 17:23 17:23 17:23 WBC 8.0 RBC 4.83 Hgb 13.9 Hct 41.2 MCV 85.3 MCH 28.8 MCHC 33.8 RDW 13.4 Plt Count 233 MPV 8.9 Neut # (Auto) 4.9 Lymph # (Auto) 1.9 Kidder # (Auto) 0.8 Eos # (Auto) 0.3 Baso # (Auto) 0.1 Absolute Nucleated RBC 0.00 Nucleated RBC % 0.0 Sodium 137 Potassium 3.6 Chloride 104 Carbon Dioxide 25 Anion Gap 8.0 BUN 10 Creatinine 0.5 Estimated GFR (MDRD) 154 Glucose 81 Calcium 8.8 Total Bilirubin 0.5 AST 11 ALT 18 Alkaline Phosphatase 63 Total Protein 7.6 Albumin 4.3 Globulin 3.3 Albumin/Globulin Ratio 1.3 Lipase 23 HCG, Quant 308.32 Urine Color Urine Clarity Urine pH Ur Specific [place] Urine Protein Urine Glucose (UA) Urine Ketones Urine Occult Blood Urine Nitrite Urine Bilirubin Urine Urobilinogen Ur Leukocyte Esterase Urine RBC Urine WBC Ur Squamous Epith Cells Amorphous Sediment Urine Bacteria Ur Microscopic Review Urine Culture Comments 01/30/18 17:24 WBC RBC Hgb Hct MCV MCH MCHC RDW Plt Count MPV Neut # (Auto) Lymph # (Auto) Kidder # (Auto) Eos # (Auto) Baso # (Auto) Absolute Nucleated RBC Nucleated RBC % Sodium Potassium Chloride Carbon Dioxide Anion Gap BUN Creatinine Estimated GFR (MDRD) Glucose Calcium Total Bilirubin AST ALT Alkaline Phosphatase Total Protein Albumin Globulin Albumin/Globulin Ratio Lipase HCG, Quant Urine Color YELLOW Urine Clarity CLOUDY Urine pH 7.5 Ur Specific [place] 1.015 Urine Protein NEGATIVE Urine Glucose (UA) NEGATIVE Urine Ketones NEGATIVE Urine Occult Blood NEGATIVE Urine Nitrite NEGATIVE Urine Bilirubin NEGATIVE Urine Urobilinogen 0.2 (NORMAL) Ur Leukocyte Esterase NEGATIVE Urine RBC None Seen Urine WBC 0-3 Ur Squamous Epith Cells MOD Squamous H Amorphous Sediment Marked Urine Bacteria None Seen Ur Microscopic Review INDICATED Urine Culture Comments NOT INDICATED - Rads (name of study) OB US Radiology: Prelim report reviewed, EMP read contemporaneously, See rad report (No evidence of intrauterine gestation. No suspicious adnexal masses. Differential considerations in a patient include early intrauterine , recent , or occult ectopic . ) PD MEDICAL DECISION MAKING - ED course Complexity details: reviewed results, re-evaluated patient, considered differential, d/w patient ED course: Patient is a 22-year-old female with an hCG of 300 and a normal ultrasound. Ectopic precautions given at bedside. Also counseled this could represent an early versus a miscarriage. Recommend that she follow-up with her doctor in 2-3 days for repeat hCG. She will return if she develops worsening pain or other new or worsening symptoms. Patient counseled regarding signs and symptoms for which I believe and urgent re-evaluation would be necessary. Patient with good understanding of and agreement to plan and is comfortable going home at this time This document was made in part using voice recognition software. While efforts are made to proofread this document, sound alike and grammatical errors may occur. Declines any nausea medications here or for home Departure - Departure Disposition: 01 Home, Self Care Clinical Impression: Vomiting affecting , related pelvic pain in first trimester, antepartum Condition: Good Instructions: ED Abdominal Pain Rule Out Ectopic, ED Preg Morning Sickness Follow-Up: your,doctor in 2-3 days for repeat HCG [Other] Comments: Return if you worsen. You can use Tylenol for pain. Follow-up with your doctor in 2-3 days for repeat hCG, or you can return here for a repeat hCG. This will require another emergency department visit however. Return especially for worsening or uncontrolled pain. Discharge Date/Time: 01/30/18 20:04
[2018-01-30 17:27] LABS: BILIRUBIN,URINE NEGATIVE (NEGATIVE); GLUCOSE, URINE (UA) NEGATIVE (NEGATIVE); KETONES,URINE (UA) NEGATIVE (NEGATIVE); LEUKOCYTE ESTERASE, URINE NEGATIVE (NEGATIVE); NITRITE,URINE NEGATIVE (NEGATIVE); OCCULT BLOOD,URINE NEGATIVE (NEGATIVE); PH,URINE 7.5 PH (5.0-7.5); PROTEIN,URINE NEGATIVE (NEGATIVE); UROBILINOGEN,URINE 0.2 (NORMAL) E.U./dL (NORMAL)
[2018-01-30 17:29] LABS: CLARITY,URINE CLOUDY (CLEAR)
[2018-01-30 17:31] LABS: BASOPHILS # (AUTO) 0.1 10^3/uL (0.0-0.1); EOSINOPHILS # (AUTO) 0.3 10^3/uL (0.0-0.7); EOSINOPHILS % (AUTO) 3.5 %; HGB - HEMOGLOBIN 13.9 g/dL (12.0-16.0); LYMPHOCYTES # (AUTO) 1.9 10^3/uL (1.5-3.5); LYMPHOCYTES % (AUTO) 23.5 %; MEAN CORPUSCULAR HEMOGLOBIN 28.8 pg (27.0-31.0); MEAN CORPUSCULAR HGB CONC 33.8 g/dL (32.0-36.0); MEAN CORPUSCULAR VOLUME 85.3 fL (81.0-99.0); MEAN PLATELET VOLUME 8.9 fL (7.9-10.8); MONOCYTES # (AUTO) 0.8 10^3/uL (0.0-1.0); MONOCYTES % (AUTO) 10.4 %; NEUTROPHILS # (AUTO) 4.9 10^3/uL (1.5-6.6); NEUTROPHILS % (AUTO) 61.6 %; PLT - PLATELET COUNT 233 10^3/uL (130-450); RED BLOOD COUNT 4.83 10^6/uL (4.20-5.40); RED CELL DISTRIBUTION WIDTH 13.4 % (12.0-15.0)
[2018-01-30 17:35] LABS: SQUAMOUS EPITHELIAL CELL,UR MOD Squamous (<= Few)
[2018-01-30 17:36] LABS: AMORPHOUS SEDIMENT,UR Marked /LPF; BACTERIA,URINE None Seen /HPF (None Seen); RBC,URINE None Seen /HPF (0-5)
[2018-01-30 17:40] LABS: ALBUMIN 4.3 g/dL (3.2-5.5); ALBUMIN/GLOBULIN RATIO 1.3 (1.0-2.2); BILIRUBIN,TOTAL 0.5 mg/dL (0.2-1.0); CALCIUM 8.8 mg/dL (8.5-10.3); CREATININE 0.5 mg/dL (0.4-1.0); TOTAL PROTEIN 7.6 g/dL (6.7-8.2)
[2018-01-30 19:18] VITALS: BP 122/77
--- NOTE | 2018-01-30 19:30 | Ultrasound Report ---
Reason: 6 weeks preg, R pelvic pain Procedure Date: 01/30/2018 Accession Number: [id number] / [id number] Procedure: US - OB First Trimester CPT Code: FULL RESULT: EXAM: PELVIC ULTRASOUND OB FIRST TRIMESTER EXAM DATE: 01/30/2018 07:08 PM. CLINICAL HISTORY: 6 weeks preg, R pelvic pain. COMPARISON: None. TECHNIQUE: Realtime transabdominal pelvic scan performed to identify the uterus and adnexa and as an overview of other pelvic structures, followed by transvaginal scan to provide greater detail of the uterus and adnexa, with static image documentation. FINDINGS: Uterus: Length 11.6 cm. Anteverted position. Normal overall size and echotexture. Masses: None. Endometrium: 23 mm. No evidence of intrauterine gestation. Cervix: Unremarkable. Right Ovary: 2.8 x 1.6 x 2.0 cm, volume 4.7 cc. Normal echotexture and blood flow. Left Ovary: 3.4 x 2.0 x 2.1 cm, volume 7.4 cc. Normal echotexture and blood flow. Free Fluid: None. Other: None. IMPRESSION: No evidence of intrauterine gestation. No suspicious adnexal masses. Differential considerations in a patient include early intrauterine , recent , or occult ectopic . RADIA
== END 2018-01-30 20:04 | disposition home or self-care (01) ==
LOC: ED 16:34
DX: O21.9 Vomiting of pregnancy, unspecified (principal); O26.891 Other specified pregnancy related conditions, first trimester; R10.2 Pelvic and perineal pain; I10 Essential (primary) hypertension; E78.00 Pure hypercholesterolemia, unspecified; F17.200 Nicotine dependence, unspecified, uncomplicated; Z3A.01 Less than 8 weeks gestation of pregnancy
CPT/HCPCS: 36415; 76801; 76817; 80053; 81001; 81003; 83690; 84702; 85025; 87086; 96360; 99283

== ENCOUNTER 2018-02-02 17:40 | Emergency (ER) | payer MEDICAID ==
[2018-02-02 17:56] VITALS: BP 111/82
--- NOTE | 2018-02-02 19:34 | ED Physician Documentation ---
History of Present Illness - Stated complaint Stated Complaint: SENT BY DOC/HCG Level - Chief complaint Chief Complaint: General - History obtained from History obtained from: Patient - History of Present Illness Timing: Other (She was seen the other night for cramping, her beta-hCG was 308 and had a nondiagnostic ultrasound. She was advised to come in for repeat beta- hCG. The cramping is better, not completely gone. No bleeding.) Review of Systems Constitutional: reports: Reviewed and negative Throat: reports: Reviewed and negative Cardiac: reports: Reviewed and negative PD PAST MEDICAL HISTORY - Past Medical History Cardiovascular: Hypertension, High cholesterol, Arrhythmia (SVT), Other Respiratory: None Neuro: None Endocrine/Autoimmune: None GI: None GROMMET MAN: None : Kidney stones (treated with ureteral stents in past) HEENT: None Psych: None Musculoskeletal: None Derm: None - Past Surgical History Past Surgical History: Yes /GROMMET MAN: section, Other (ureteral stents) - Present Medications Home Medications: Ambulatory Orders Medication Instructions Recorded Confirmed RX: Metoprolol Tartrate [Lopressor] 25 mg pe PO BID 11/09/17 12/24/17 RX: Metoprolol Tartrate 25 mg PO BID #60 tablet 02/02/18 - Social History Does the pt smoke?: Yes Smoking Status: Current every day smoker Does the pt drink ETOH?: Yes Does the pt have substance abuse?: No - Immunizations Immunizations are current?: Yes - POLST Patient has POLST: No POLST Status: Full Code PD ED PE NORMAL - Vitals Vital signs reviewed: Yes - General General: Alert and oriented X 3, No acute distress - Neuro Neuro: Alert and oriented X 3, Normal speech - Psych Psych: Normal mood, Normal affect Results - Vitals Vitals: Vital Signs - 24 hr 02/02/18 17:52 Temperature 36.1 C L Heart Rate 108 H Respiratory 16 Rate Blood Pressure 111/82 H O2 Saturation 96 Oxygen O2 Source Room air - Labs Labs: Laboratory Tests 02/02/18 18:03 HCG, Quant 1059.88 PD MEDICAL DECISION MAKING - ED course ED course: 22-year-old with concern for of undetermined location. Her beta hCG rise is reassuring. Advised follow-up with OB this week. She also requested a refill of her metoprolol for her tachycardia. No ultrasound tonight as she had one the other night and it should not be yet diagnostic. Departure - Departure Disposition: 01 Home, Self Care Clinical Impression: related pelvic pain in first trimester, antepartum Condition: Good Record reviewed to determine appropriate education?: Yes Follow-Up: Merlene Pate CNM, ARNP [Provider Admit Priv/Credential] - Prescriptions: RX: Metoprolol Tartrate 25 mg PO BID #60 tablet Comments: Call tomorrow for an appointment with the nurse dairy consultant later this week. Return for increasing camping or any bleeding. Discharge Date/Time: 02/02/18 19:37
== END 2018-02-02 19:37 | disposition home or self-care (01) ==
LOC: ED 17:40
DX: O26.891 Other specified pregnancy related conditions, first trimester (principal); R10.2 Pelvic and perineal pain; O99.331 Smoking (tobacco) complicating pregnancy, first trimester; F17.200 Nicotine dependence, unspecified, uncomplicated; O10.911 Unspecified pre-existing hypertension complicating pregnancy, first trimester; Z3A.00 Weeks of gestation of pregnancy not specified; Z76.0 Encounter for issue of repeat prescription; R00.0 Tachycardia, unspecified
CPT/HCPCS: 84702; 84703; 99283

== ENCOUNTER 2018-02-07 23:05 | Emergency (ER) | payer MEDICAID ==
[2018-02-07 23:25] LABS: BILIRUBIN,URINE NEGATIVE (NEGATIVE); GLUCOSE, URINE (UA) NEGATIVE (NEGATIVE); KETONES,URINE (UA) NEGATIVE (NEGATIVE); LEUKOCYTE ESTERASE, URINE NEGATIVE (NEGATIVE); NITRITE,URINE NEGATIVE (NEGATIVE); OCCULT BLOOD,URINE NEGATIVE (NEGATIVE); PH,URINE 7.5 PH (5.0-7.5); PROTEIN,URINE NEGATIVE (NEGATIVE); UROBILINOGEN,URINE 0.2 (NORMAL) E.U./dL (NORMAL)
[2018-02-07 23:28] LABS: CLARITY,URINE CLEAR (CLEAR)
[2018-02-07] MEDS ORDERED: ALBUTEROL NEB 2.5 MG/3 ML INH STA (23:48)
[2018-02-07] MEDS ORDERED: ONDANSETRON 4 MG/2 ML VIAL IVP STA (23:48)
--- NOTE | 2018-02-07 23:51 | ED Physician Documentation ---
PD HPI FEMALE - Stated complaint Stated Complaint: 6 WKS/CRAMP - Chief complaint Chief Complaint: Abd Pain - History obtained from History obtained from: Patient, Family - History of Present Illness Timing - onset: How many weeks ago (4) Timing - duration: Weeks (4) Timing - details: Gradual onset, Still present, Waxing and waning Associated symptoms: Back pain, Pelvic pain. 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 She states that she has had this on and off for the past 4 weeks she has been seen in the emergency department and a initial ultrasound was without evidence of intrauterine she has had a repeat hCG is they have been rising appropriately she is into the emergency department tonight with persistent pelvic cramping and nausea. She denies any vaginal bleeding she denies any lightheaded or dizziness. She has had a cough that is nonproductive and some wheezing associated with it. She has had cough and bronchitis with wheezing previously and usually uses an inhaler. She does not have an inhaler to use tonight. Review of Systems Constitutional: denies: Fever, Chills, Myalgias, Fatigue Eyes: denies: Decreased vision Ears: denies: Ear pain Nose: reports: Rhinorrhea / runny nose, Congestion Throat: denies: Sore throat Cardiac: denies: Chest pain / pressure, Palpitations Respiratory: reports: Dyspnea, Cough, Wheezing GI: reports: Abdominal Pain, Nausea, Vomiting : denies: Dysuria, Frequency Skin: denies: Rash Musculoskeletal: reports: Back pain. denies: Neck pain, Extremity pain Neurologic: denies: Generalized weakness, Focal weakness, Numbness PD PAST MEDICAL HISTORY - Past Medical History Cardiovascular: Hypertension, High cholesterol, Arrhythmia, Other Respiratory: None Neuro: None Endocrine/Autoimmune: None GI: None ENGINEER SPECIALIST: None : Kidney stones HEENT: None Psych: None Musculoskeletal: None Derm: None - Past Surgical History Past Surgical History: Yes General: Appendectomy /ENGINEER SPECIALIST: section, Other - Present Medications Home Medications: Ambulatory Orders Medication Instructions Recorded Confirmed Metoprolol Tartrate 25 mg PO BID #60 tablet 02/02/18 02/07/18 - Allergies Allergies/Adverse Reactions: Allergies Allergy/AdvReac Type Severity Reaction Status Date / Time metoclopramide [From Reglan] Allergy Unknown Verified 02/07/18 23:12 IVP dye Allergy Unknown Uncoded 02/07/18 23:12 - Social History Does the pt smoke?: Yes Smoking Status: Current every day smoker Does the pt drink ETOH?: No Does the pt have substance abuse?: No - Immunizations Immunizations are current?: Yes - POLST Patient has POLST: No POLST Status: Full Code PD ED PE NORMAL - Vitals Vital signs reviewed: Yes (hypertensive) - General General: Alert and oriented X 3, No acute distress, Well developed/nourished - HEENT HEENT: Atraumatic, PERRL, EOMI, Ears normal, Moist mucous membranes, Pharynx benign, Dentition benign - Neck Neck: Supple, no meningeal sign, No bony TTP - Cardiac Cardiac: RRR, No murmur - Respiratory Respiratory: No respiratory distress, Other (scattered wheezes bilaterally ) - Abdomen Abdomen: Soft, Non tender - Back Back: No CVA TTP, No spinal TTP - Derm Derm: Normal color, Warm and dry, No rash - Extremities Extremities: No deformity, No edema - Neuro Neuro: Alert and oriented X 3, supervisor lending activities 2-12 intact, No motor deficit, No sensory deficit, Normal speech Eye Opening: Spontaneous Motor: Obeys Commands Verbal: Oriented GCS Score: 15 - Psych Psych: Normal mood, Normal affect Results - Vitals Vitals: Vital Signs - 24 hr 02/07/18 02/08/18 02/08/18 23:05 00:04 02:46 Temperature 36.1 C L Heart Rate 83 70 66 Respiratory 16 18 16 Rate Blood Pressure 132/101 H 113/67 O2 Saturation 99 98 Oxygen O2 Source Room air - Labs Labs: Laboratory Tests 02/07/18 02/07/18 23:20 23:40 HCG, Quant 6644.00 Urine Color YELLOW Urine Clarity CLEAR Urine pH 7.5 Ur Specific [place] 1.010 Urine Protein NEGATIVE Urine Glucose (UA) NEGATIVE Urine Ketones NEGATIVE Urine Occult Blood NEGATIVE Urine Nitrite NEGATIVE Urine Bilirubin NEGATIVE Urine Urobilinogen 0.2 (NORMAL) Ur Leukocyte Esterase NEGATIVE Ur Microscopic Review NOT INDICATED Urine Culture Comments NOT INDICATED - Rads (name of study) pelvic ultrasound Radiology: Prelim report reviewed (Impression: 1. Single intrauterine gestational sac estimated gestational age 4 weeks 5 days with ELIJAH 10/13/2018 based on mean sac diameter, which is discordant with clinical dates. Signed dating his ELIJAH 10/13/2028 based on current ultrasound. Yolk sac is seen. Embryo is not seen. Sonographic follow-up is recommended. Small hemorrhage adjacent to the gestational sac measuring 1.8 x 0.2 x 6.6 cm.), EMP read indepedently, See rad report PD MEDICAL DECISION MAKING - ED course Complexity details: reviewed results, re-evaluated patient, considered differential, d/w patient, d/w family ED course: 22-year-old female with early has been having cramping and her initial ultrasound demonstrated no evidence of intrauterine . She has had continued cramping and her hCG is now about 6600. An ultrasound this morning shows a gestational sac consistent with 4 weeks 5 days. The fetus is not imaged. I discussed the findings with the patient and we will sent home with instructions on threatened miscarriage. Departure - Departure Disposition: Home, Self Care Clinical Impression: related pelvic pain in first trimester, antepartum, Threatened affecting intrauterine Condition: Stable Instructions: ED Miscarriage Poss Follow-Up: Rashid Faria MD [Provider Admit Priv/Credential] -
[2018-02-08] MEDS ORDERED: MAG HYDROX/AL HYDROX/SIMETH 30 ML UDC PO STA (00:56)
--- NOTE | 2018-02-08 02:51 | Ultrasound Report ---
Reason: cramping 6 weeks Procedure Date: 02/08/2018 Accession Number: [id number] / [id number] Procedure: US - OB First Trimester CPT Code: FULL RESULT: EXAM: FIRST TRIMESTER OBSTETRIC ULTRASOUND (Less than 11 weeks) EXAM DATE: 02/08/2018 02:34 AM. CLINICAL HISTORY: Cramping 6 weeks. Beta hCG 6644. LMP: 12/18/2017. COMPARISONS: OB FIRST TRIMESTER 01/30/2018 6:38 PM. TECHNIQUE: Transabdominal and transvaginal ultrasound examination with static image documentation. CLINICAL DATES: EGA 7 weeks 3 days with ELIJAH 09/24/2018 based on LMP. ASSESSMENT: Gestational Sac: Single intrauterine. Mean gestational sac diameter: 7.6 mm = 4 weeks 5 days. Embryo: Not seen. Cardiac activity: Not seen. Yolk sac: 2 mm. Amniotic fluid: Not accurately assessed at this gestational age. Early placenta: Not visible at this gestational age. Other: Hemorrhage adjacent to the gestational sac measuring 1.8 x 0.2 x 0.6 cm. MATERNAL STRUCTURES: Uterus: Anteverted. Unremarkable. Cervix: Closed. Right Ovary/Adnexa: The ovary measures 3.8 x 1.9 x 1.6 cm, volume 6.0 cc. Unremarkable. Left Ovary/Adnexa: The ovary measures 3.4 x 2.4 x 2.4 cm, volume 10.2 cc. Unremarkable. Free Fluid: Small amount. Other: None. IMPRESSION: 1. Single intrauterine gestational sac at EGA 4 weeks 5 days with ELIAJH 10/13/2018 based on mean sac diameter, which is discordant with clinical dates. 2. Assigned dating is ELIJAH 10/13/2018 based on current US. 3. Yolk sac is seen. Embryo is not seen. Sonographic follow-up is recommended. 4. Small hemorrhage adjacent to the gestational sac measuring 1.8 x 0.2 x 0.6 cm. RADIA
[2018-02-08 03:39] VITALS: BP 111/78
== END 2018-02-08 03:50 | disposition home or self-care (01) ==
LOC: ED 23:05
DX: O20.0 Threatened abortion (principal); O99.331 Smoking (tobacco) complicating pregnancy, first trimester; R05 Cough; R06.2 Wheezing; Z3A.01 Less than 8 weeks gestation of pregnancy; I10 Essential (primary) hypertension; E78.00 Pure hypercholesterolemia, unspecified
CPT/HCPCS: 36415; 76801; 76817; 81003; 84702; 94640; 94664; 96374; 99283; A9270; 81001; 87086

== ENCOUNTER 2018-02-14 14:00 | Outpatient (CLI) | payer MEDICAID | END 2018-02-14 14:01 | disposition home or self-care (01) | LOC: LAB 14:00 | PROVIDERS: ATTEND Registered Nurse | DX: Z33.1 Pregnant state, incidental (principal) | CPT/HCPCS: 36415; 84702 ==

== ENCOUNTER 2018-02-14 14:24 | Outpatient (CLI) | payer MEDICAID ==
--- NOTE | 2018-02-17 13:55 | Ultrasound Report ---
Reason: ECTOPIC Procedure Date: 02/14/2018 Accession Number: [id number] / [id number] Procedure: US - OB First Trimester CPT Code: FULL RESULT: EXAM: FIRST TRIMESTER OBSTETRIC ULTRASOUND (Less than 11 weeks) EXAM DATE: 02/14/2018 04:56 PM. CLINICAL HISTORY: First trimester . LMP: 12/17/2017. COMPARISONS: None. TECHNIQUE: Transabdominal and transvaginal ultrasound examination with static image documentation. CLINICAL DATES: EGA 8 weeks 2 days with ELIJAH 12/17/2017 based on LMP/prior ultrasound/other. ASSESSMENT: Gestational Sac: Single intrauterine. Embryo: CRL (crown-rump length) 2.3 mm = 5 weeks 5 days. Cardiac activity: 118 beats per minute. Yolk sac: 2.9 mm. Amniotic fluid: Not accurately assessed at this gestational age. Early placenta: Not visible at this gestational age. Other: No perigestational fluid collection demonstrated. MATERNAL STRUCTURES: Uterus: Anteverted. Unremarkable. Cervix: Closed. Right Ovary/Adnexa: The ovary measures 3.4 x 1.7 x 1.7 cm, volume 5 cc. Unremarkable. Left Ovary/Adnexa: The ovary measures 3.0 x 2.0 x 2.1 cm, volume 6.5 cc. Unremarkable. Free Fluid: None. Other: None. IMPRESSION: 1. Single viable intrauterine at EGA 5 weeks 5 days with ELIJAH 10/12/2018 based on crown-rump length, which is discordant with clinical dates. 2. Assigned dating is ELIJAH 10/12/2018 based on current ultrasound. DEVIN The call report notification system was initiated by Dr. Yon Hargrove at 17:18 hrs on 02/14/18. The above findings were discussed with Sidney Robertson by Dr. Yon Hargrove at 17:20 hrs on 02/14/18.
== END 2018-02-14 14:25 | disposition home or self-care (01) ==
LOC: DI 14:24
PROVIDERS: ATTEND Registered Nurse
DX: Z36.9 Encounter for antenatal screening, unspecified (principal)
CPT/HCPCS: 36415; 76801; 76817; 84702

== ENCOUNTER 2018-02-23 19:26 | Emergency (ER) | payer MEDICAID ==
--- NOTE | 2018-02-23 20:36 | ED Physician Documentation ---
PD HPI NVD - Stated complaint Stated Complaint: VOMITING/7WK OB - Chief complaint Chief Complaint: Abd Pain - History obtained from History obtained from: Patient - History of Present Illness Timing - onset: Today Timing - details: Abrupt onset (has had some N/V with for few weeks, but today had abrupt repetitive vomiting with some diarrhea as well, general malaise.), Still present Associated symptoms: Abdominal pain (crampy). No: Fever, Near syncope / syncope, Dysuria, Vaginal bleeding Contributing factors: Other (7 weeks ). No: Sick contact, Bad food, Travel Improved by: No: Vomiting Worsened by: Eating Similar symptoms before: Has not had sx before Recently seen: Clinic (had visit week ago, with normal exam.) Review of Systems Constitutional: reports: Myalgias. denies: Fever Nose: denies: Rhinorrhea / runny nose, Congestion Throat: denies: Sore throat Respiratory: denies: Cough GI: reports: Nausea, Vomiting, Diarrhea : reports: Now EGA (7). 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 : Kidney stones HEENT: None Psych: None Musculoskeletal: None Derm: None - Past Surgical History Past Surgical History: Yes General: Appendectomy /REFINERY OPERATOR ASSISTANT: section, Other - Present Medications Home Medications: Ambulatory Orders Medication Instructions Recorded Confirmed Metoprolol Tartrate 25 mg PO BID #60 tablet 02/02/18 02/07/18 Doxylamine Succinate [Wal-Lex] 25 mg PO Q6H PRN #60 tablet 02/23/18 Promethazine Supp [Phenergan Supp] 25 mg NC Q6H PRN #6 supp 02/23/18 Pyridoxine HCl [Vitamin B-6] 100 mg PO BID #60 tablet 02/23/18 - Allergies Allergies/Adverse Reactions: Allergies Allergy/AdvReac Type Severity Reaction Status Date / Time metoclopramide [From Reglan] Allergy Unknown Verified 02/23/18 19:41 IVP dye Allergy Unknown Uncoded 02/23/18 19:41 - Social History Does the pt smoke?: Yes Smoking Status: Current every day smoker Does the pt drink ETOH?: No Does the pt have substance abuse?: No - Immunizations Immunizations are current?: Yes - POLST Patient has POLST: No POLST Status: Full Code PD ED PE NORMAL - Vitals Vital signs reviewed: Yes - General General: Alert and oriented X 3, No acute distress (appears nauseated and holding emesis bag), Well developed/nourished - HEENT HEENT: Pharynx benign. No: Moist mucous membranes - Neck Neck: Supple, no meningeal sign, No adenopathy - Cardiac Cardiac: RRR, No murmur - Respiratory Respiratory: Clear bilaterally - Abdomen Abdomen: Normal bowel sounds, Soft, Non tender, Non distended, No organomegaly, Other (bedside U/S showing IUP at 7.6 weeks with visible FHR) - Female Female : Deferred - Rectal Rectal: Deferred - Back Back: No CVA TTP - Derm Derm: Normal color, Warm and dry - Extremities Extremities: No edema - Neuro Neuro: Alert and oriented X 3, No motor deficit, Normal speech Results - Vitals Vitals: Vital Signs - 24 hr 02/23/18 02/23/18 19:39 22:15 Temperature 36.2 C L 36.8 C Heart Rate 66 62 Respiratory 18 18 Rate Blood Pressure 109/58 L 120/76 O2 Saturation 97 100 Oxygen O2 Source Room air - Labs Labs: Laboratory Tests 02/23/18 21:03 Sodium 136 Potassium 3.6 Chloride 103 Carbon Dioxide 27 Anion Gap 6.0 BUN 8 Creatinine 0.6 Estimated GFR (MDRD) 125 Glucose 86 Calcium 9.2 Total Bilirubin 0.4 AST 10 ALT 25 Alkaline Phosphatase 52 Total Protein 6.7 Albumin 3.8 Globulin 2.9 Albumin/Globulin Ratio 1.3 Lipase 19 L PD MEDICAL DECISION MAKING - ED course Complexity details: re-evaluated patient (feeling better with IV fluids and meds. ), considered differential (had been having some N/V with , but abruptly worse today, and some diarrhea, so likely viral GE as well. ), d/w patient Departure - Departure Disposition: 01 Home, Self Care Clinical Impression: Nausea and vomiting during Qualifiers: Weeks of gestation: less than 8 weeks Qualified Code(s): Z3A.01 - Less than 8 weeks gestation of Condition: Stable Record reviewed to determine appropriate education?: Yes Instructions: ED Nausea Vomiting Prescriptions: Doxylamine Succinate [Wal-Lex] 25 mg PO Q6H PRN #60 tablet PRN Reason: Nausea / Vomiting Promethazine Supp [Phenergan Supp] 25 mg NC Q6H PRN #6 supp PRN Reason: Nausea / Vomiting Pyridoxine HCl [Vitamin B-6] 100 mg PO BID #60 tablet Comments: Small frequent fluids and bland food initially such as crackers and cereals and breads. Positives are good as well. Progress diet as able over the next day or 2. You may have this stomach viral illness in addition to the nausea . Hopefully the worse nausea and vomiting of today will last. For the ongoing nausea of , use vitamin B6 twice daily regularly. Add doxylamine as needed for nausea. If you are having significant vomiting, you can use promethazine suppositories instead. Follow-up with your WEB MOBILE DESIGNER this coming week if not improved return to the ER as needed. Discharge Date/Time: 02/23/18 23:10
[2018-02-23] MEDS ORDERED: SODIUM CHLORIDE 0.9% 1,000 ML IV ONE ×2 (20:52→20:53)
[2018-02-23] MEDS ORDERED: PROMETHAZINE INJ 12.5 MG in SODIUM CHLORIDE 0.9% 50 ML IV STA (20:52)
[2018-02-23 21:21] LABS: ALBUMIN 3.8 g/dL (3.2-5.5); ALBUMIN/GLOBULIN RATIO 1.3 (1.0-2.2); BILIRUBIN,TOTAL 0.4 mg/dL (0.2-1.0); CALCIUM 9.2 mg/dL (8.5-10.3); CREATININE 0.6 mg/dL (0.4-1.0); TOTAL PROTEIN 6.7 g/dL (6.7-8.2)
[2018-02-23 22:16] VITALS: BP 120/76
[2018-02-23] MEDS ORDERED: diphenhydrAMINE INJ 50 MG/ML VIAL IVP STA (22:35)
== END 2018-02-23 23:10 | disposition home or self-care (01) ==
LOC: ED 19:26
DX: O21.9 Vomiting of pregnancy, unspecified (principal); O99.331 Smoking (tobacco) complicating pregnancy, first trimester; Z3A.01 Less than 8 weeks gestation of pregnancy; I10 Essential (primary) hypertension; E78.00 Pure hypercholesterolemia, unspecified
CPT/HCPCS: 36415; 80053; 83690; 96361; 96365; 96375; 99283; 99284; J1200; J7040

== ENCOUNTER 2018-03-05 14:24 | Outpatient (CLI) | payer MEDICAID ==
[2018-03-05 18:40] LABS: MUDS CUTOFF CONCENTRATIONS CUTOFF CONC BELOW:
[2018-03-05 19:08] LABS: AMPHETAMINE SCREEN,URINE NEGATIVE (NEGATIVE); BENZODIAZEPINES SCREEN, URINE NEGATIVE (NEGATIVE); COCAINE SCREEN URINE NEGATIVE (NEGATIVE); METHADONE SCREEN, URINE NEGATIVE (NEGATIVE); METHAMPHETAMINES SCREEN, URINE NEGATIVE (NEGATIVE); OPIATE SCREEN, URINE NEGATIVE (NEGATIVE); OXYCODONE SCREEN, URINE NEGATIVE (NEGATIVE); PROPOXYPHENE SCREEN, URINE NEGATIVE (NEGATIVE); TRICYCLIC ANTIDEPRESSANT,URINE NEGATIVE (NEGATIVE)
== END 2018-03-05 23:59 | disposition home or self-care (01) ==
LOC: LAB.R 14:24
PROVIDERS: ATTEND Registered Nurse
DX: Z33.1 Pregnant state, incidental (principal)
CPT/HCPCS: 80306

== ENCOUNTER 2018-04-24 20:12 | Emergency (ER) | payer MEDICAID ==
[2018-04-24] MEDS ORDERED: SODIUM CHLORIDE 0.9% 1,000 ML IV STA (20:49)
[2018-04-24] MEDS ORDERED: SODIUM CHLORIDE 0.9% 1,000 ML IV ONE (20:49)
--- NOTE | 2018-04-24 20:49 | ED Physician Documentation ---
History of Present Illness - Stated complaint Stated Complaint: FLU SYMPTOMS/16WK OB - Chief complaint Chief Complaint: Abd Pain - History obtained from History obtained from: Patient - History of Present Illness Timing: Last night Pain level max: 5 Pain level now: 3 Improved by: nothing Worsened by: eating - Additonal information Additional information: 22 year old female with vomiting since 0100 today. Child here 2 days ago for same. States has body aches, dull and constant. She is 16 weeks currently. History of pre-eclampsia for which she takes metoprolol. Taking zofran at home. Today. States normal HR is 120bpm. states zofran is not help ing. fever 101 today. Cough x 1 week. 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 : Kidney stones, Other HEENT: None Psych: None Musculoskeletal: None Derm: None Other Past Medical History: preeclampsia with first - Past Surgical History Past Surgical History: Yes General: Appendectomy /ARBORIST CLIMBER: section, Other - Present Medications Home Medications: Ambulatory Orders Medication Instructions Recorded Confirmed Metoprolol Tartrate 25 mg PO BID #60 tablet 02/02/18 02/07/18 Doxylamine Succinate [Wal-Lex] 25 mg PO Q6H PRN #60 tablet 02/23/18 Promethazine Supp [Phenergan Supp] 25 mg DE Q6H PRN #6 supp 02/23/18 Pyridoxine HCl [Vitamin B-6] 100 mg PO BID #60 tablet 02/23/18 Ondansetron Odt [Zofran] 4 mg TL Q6H PRN #10 tablet 04/24/18 - Allergies Allergies/Adverse Reactions: Allergies Allergy/AdvReac Type Severity Reaction Status Date / Time metoclopramide [From Reglan] Allergy Unknown Verified 02/23/18 19:41 IVP dye Allergy Unknown Uncoded 02/23/18 19:41 - Social History Does the pt smoke?: Yes Smoking Status: Current every day smoker Does the pt drink ETOH?: No Does the pt have substance abuse?: No - Immunizations Immunizations are current?: Yes - POLST Patient has POLST: No POLST Status: Full Code PD ED PE NORMAL - Vitals Vital signs reviewed: Yes - General General: Alert and oriented X 3, No acute distress, Well developed/nourished - HEENT HEENT: PERRL, Ears normal, Moist mucous membranes, Pharynx benign - Neck Neck: Supple, no meningeal sign, No adenopathy - Cardiac Cardiac: RRR, Strong equal pulses - Respiratory Respiratory: No respiratory distress, Clear bilaterally - Abdomen Abdomen: Soft, Non tender, Non distended - Back Back: No spinal TTP - Derm Derm: Warm and dry - Extremities Extremities: No edema - Neuro Neuro: Alert and oriented X 3 - Psych Psych: Normal mood, Normal affect Results - Vitals Vitals: Vital Signs - 24 hr 04/24/18 04/24/18 04/24/18 20:19 22:17 23:04 Temperature 37.0 C 37.1 C Heart Rate 100 91 88 Respiratory 16 16 16 Rate Blood Pressure 118/81 H 118/71 107/76 O2 Saturation 96 97 99 Oxygen O2 Source Room air - Labs Labs: Laboratory Tests 04/24/18 04/24/18 04/24/18 21:07 21:07 21:29 WBC 7.5 RBC 4.02 L Hgb 12.1 Hct 34.4 L MCV 85.6 MCH 30.1 MCHC 35.1 RDW 13.0 Plt Count 213 MPV 8.7 Neut # (Auto) 5.9 Lymph # (Auto) 0.8 L [place] # (Auto) 0.6 Eos # (Auto) 0.1 Baso # (Auto) 0.0 Absolute Nucleated RBC 0.00 Nucleated RBC % 0.0 Sodium Potassium Chloride Carbon Dioxide Anion Gap BUN Creatinine Estimated GFR (MDRD) Glucose Calcium Total Bilirubin AST ALT Alkaline Phosphatase Total Protein Albumin Globulin Albumin/Globulin Ratio Lipase Urine Color YELLOW Urine Clarity CLEAR Urine pH 8.5 H Ur Specific [place] 1.015 Urine Protein NEGATIVE Urine Glucose (UA) NEGATIVE Urine Ketones NEGATIVE Urine Occult Blood NEGATIVE Urine Nitrite NEGATIVE Urine Bilirubin NEGATIVE Urine Urobilinogen 2 H Ur Leukocyte Esterase NEGATIVE Ur Microscopic Review NOT INDICATED Urine Culture Comments NOT INDICATED Influenza A (Rapid) Negative Influenza B (Rapid) Negative 04/24/18 21:29 WBC RBC Hgb Hct MCV MCH MCHC RDW Plt Count MPV Neut # (Auto) Lymph # (Auto) [place] # (Auto) Eos # (Auto) Baso # (Auto) Absolute Nucleated RBC Nucleated RBC % Sodium 133 L Potassium 3.2 L Chloride 102 Carbon Dioxide 21 Anion Gap 10.0 BUN 8 Creatinine 0.5 Estimated GFR (MDRD) 154 Glucose 85 Calcium 8.1 L Total Bilirubin 0.3 AST 10 ALT 10 Alkaline Phosphatase 69 Total Protein 6.4 L Albumin 2.9 L Globulin 3.5 Albumin/Globulin Ratio 0.8 L Lipase 20 L Urine Color Urine Clarity Urine pH Ur Specific [place] Urine Protein Urine Glucose (UA) Urine Ketones Urine Occult Blood Urine Nitrite Urine Bilirubin Urine Urobilinogen Ur Leukocyte Esterase Ur Microscopic Review Urine Culture Comments Influenza A (Rapid) Influenza B (Rapid) PD MEDICAL DECISION MAKING - ED course Complexity details: reviewed results, re-evaluated patient, considered differential, d/w patient ED course: 22-year-old female with what appears to be a viral gastroenteritis. She is approximately 16 weeks and bedside ultrasound reveals an intrauterine with good movement and a heart rate of 142 bpm. Images were shown to the patient. She was given IV fluids and Zofran. She is unable to tolerate Reglan, Compazine or Phenergan well. She is also tried Zofran prior to arrival, but seemed to work better IV. Her son recovered from this illness in less than 48 hours and I expect this will be similar for her. No significant laboratory abnormalities. We will have her follow-up with her doctor for further evaluation and care. Patient counseled regarding signs and symptoms for which I believe and urgent re-evaluation would be necessary. Patient with good understanding of and agreement to plan and is comfortable going home at this time This document was made in part using voice recognition software. While efforts are made to proofread this document, sound alike and grammatical errors may occur. Departure - Departure Disposition: 01 Home, Self Care Clinical Impression: Viral gastroenteritis Condition: Good Instructions: ED Gastroenteritis Viral Follow-Up: your,doctor in 3 days for recheck [Other] Prescriptions: Ondansetron Odt [Zofran] 4 mg TL Q6H PRN #10 tablet PRN Reason: Nausea / Vomiting Comments: Drink plenty of fluids and rest. Return if you worsen. This should improve over the next 24 hours.
[2018-04-24] MEDS ORDERED: ONDANSETRON 4 MG/2 ML VIAL IVP STA (21:13)
[2018-04-24 21:42] LABS: BASOPHILS % (AUTO) 0.3 %; EOSINOPHILS # (AUTO) 0.1 10^3/uL (0.0-0.7); EOSINOPHILS % (AUTO) 1.9 %; HGB - HEMOGLOBIN 12.1 g/dL (12.0-16.0); LYMPHOCYTES # (AUTO) 0.8 10^3/uL (1.5-3.5); LYMPHOCYTES % (AUTO) 10.9 %; MEAN CORPUSCULAR HEMOGLOBIN 30.1 pg (27.0-31.0); MEAN CORPUSCULAR HGB CONC 35.1 g/dL (32.0-36.0); MEAN CORPUSCULAR VOLUME 85.6 fL (81.0-99.0); MEAN PLATELET VOLUME 8.7 fL (7.9-10.8); MONOCYTES # (AUTO) 0.6 10^3/uL (0.0-1.0); MONOCYTES % (AUTO) 7.4 %; NEUTROPHILS # (AUTO) 5.9 10^3/uL (1.5-6.6); NEUTROPHILS % (AUTO) 79.5 %; PLT - PLATELET COUNT 213 10^3/uL (130-450); RED BLOOD COUNT 4.02 10^6/uL (4.20-5.40); WHITE BLOOD COUNT 7.5 x10^3/uL (4.8-10.8)
[2018-04-24 21:44] LABS: BILIRUBIN,URINE NEGATIVE (NEGATIVE); GLUCOSE, URINE (UA) NEGATIVE (NEGATIVE); KETONES,URINE (UA) NEGATIVE (NEGATIVE); LEUKOCYTE ESTERASE, URINE NEGATIVE (NEGATIVE); NITRITE,URINE NEGATIVE (NEGATIVE); OCCULT BLOOD,URINE NEGATIVE (NEGATIVE); PH,URINE 8.5 PH (5.0-7.5); PROTEIN,URINE NEGATIVE (NEGATIVE); UROBILINOGEN,URINE 2 E.U./dL (NORMAL)
[2018-04-24 21:46] LABS: CLARITY,URINE CLEAR (CLEAR)
[2018-04-24 21:55] LABS: ALBUMIN 2.9 g/dL (3.2-5.5); ALBUMIN/GLOBULIN RATIO 0.8 (1.0-2.2); BILIRUBIN,TOTAL 0.3 mg/dL (0.2-1.0); CALCIUM 8.1 mg/dL (8.5-10.3); CREATININE 0.5 mg/dL (0.4-1.0); TOTAL PROTEIN 6.4 g/dL (6.7-8.2)
[2018-04-24] MEDS ORDERED: ACETAMINOPHEN 325 MG TABLET PO STA (21:58)
[2018-04-24 23:05] VITALS: BP 107/76
== END 2018-04-24 23:40 | disposition home or self-care (01) ==
LOC: ED 20:12
DX: O98.512 Other viral diseases complicating pregnancy, second trimester (principal); A08.4 Viral intestinal infection, unspecified; O99.332 Smoking (tobacco) complicating pregnancy, second trimester; Z3A.16 16 weeks gestation of pregnancy; I10 Essential (primary) hypertension; E78.00 Pure hypercholesterolemia, unspecified
CPT/HCPCS: 36415; 80053; 81003; 83690; 85025; 87275; 87276; 96361; 96374; 99283; A9270; 81001; 87086

== ENCOUNTER 2018-05-02 08:00 | Outpatient (CLI) | payer MEDICAID ==
[2018-05-02 19:13] LABS: BASOPHILS % (AUTO) 0.3 %; EOSINOPHILS # (AUTO) 0.6 10^3/uL (0.0-0.7); EOSINOPHILS % (AUTO) 5.7 %; LYMPHOCYTES # (AUTO) 1.5 10^3/uL (1.5-3.5); LYMPHOCYTES % (AUTO) 15.1 %; MEAN CORPUSCULAR HEMOGLOBIN 29.4 pg (27.0-31.0); MEAN CORPUSCULAR HGB CONC 33.8 g/dL (32.0-36.0); MEAN CORPUSCULAR VOLUME 87.1 fL (81.0-99.0); MEAN PLATELET VOLUME 9.2 fL (7.9-10.8); MONOCYTES # (AUTO) 0.5 10^3/uL (0.0-1.0); MONOCYTES % (AUTO) 4.6 %; NEUTROPHILS # (AUTO) 7.5 10^3/uL (1.5-6.6); NEUTROPHILS % (AUTO) 74.3 %; PLT - PLATELET COUNT 232 10^3/uL (130-450); RED BLOOD COUNT 4.08 10^6/uL (4.20-5.40); RED CELL DISTRIBUTION WIDTH 13.5 % (12.0-15.0); WHITE BLOOD COUNT 10.1 x10^3/uL (4.8-10.8)
[2018-05-02 19:31] LABS: URIC ACID 3.9 mg/dL (2.6-7.2)
[2018-05-02 20:30] LABS: HB2 TOTAL 12.5 g/dL; HEMOGLOBIN A1C 0.42 g/dL; HEMOGLOBIN A1C % 5.2 % (4.6-6.2)
[2018-05-03 13:11] LABS: HEPATITIS B SURFACE ANTIGEN NON-REACTIVE (NON-REACTIVE); HEPATITIS C ANTIBODY NON-REACTIVE (NON-REACTIVE)
[2018-05-03 14:57] LABS: HIV AG/AB 4TH GEN NON-REACTIVE (NON-REACTIVE)
== END 2018-05-02 23:59 | disposition home or self-care (01) ==
LOC: LAB.N 08:00
PROVIDERS: ATTEND Registered Nurse
DX: Z33.1 Pregnant state, incidental (principal)
CPT/HCPCS: 36415; 81599; 82950; 83036; 83615; 84550; 85025; 86592; 86762; 86803; 86850; 86900; 86901; 87340; 87389

== ENCOUNTER 2018-05-12 12:51 | Emergency (ER) | payer MEDICAID ==
[2018-05-12 13:11] VITALS: BP 130/70
[2018-05-12] MEDS ORDERED: ONDANSETRON ODT 4 MG TABLET TL STA (14:09)
[2018-05-12] MEDS ORDERED: MECLIZINE 12.5 MG TABLET PO STA (14:09)
--- NOTE | 2018-05-12 14:12 | ED Physician Documentation ---
History of Present Illness - Stated complaint Stated Complaint: DIZZY/18 WKS PREG - Chief complaint Chief Complaint: General - History obtained from History obtained from: Patient - History of Present Illness Timing: Today (22-year-old woman with history of vertigo woke up this morning with spinning sensation. It is not associated with any ear pain or fullness or respiratory symptoms. She is nauseous with it but has not vomited. 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 : Kidney stones, Other HEENT: None Psych: None Musculoskeletal: None Derm: None - Past Surgical History Past Surgical History: Yes General: Appendectomy /RAILROAD INSPECTOR: section, Other - Present Medications Home Medications: Ambulatory Orders Medication Instructions Recorded Confirmed Metoprolol Tartrate 25 mg PO BID #60 tablet 02/02/18 05/12/18 Meclizine HCl 25 mg PO Q6H PRN #20 tab.chew 05/12/18 Ondansetron Odt [Zofran] 4 mg TL Q6H PRN #10 tablet 05/12/18 - Allergies Allergies/Adverse Reactions: Allergies Allergy/AdvReac Type Severity Reaction Status Date / Time metoclopramide [From Reglan] Allergy Unknown Verified 02/23/18 19:41 IVP dye Allergy Unknown Uncoded 02/23/18 19:41 - Social History Does the pt smoke?: Yes Smoking Status: Current some day smoker Does the pt drink ETOH?: No Does the pt have substance abuse?: No - Immunizations Immunizations are current?: Yes - POLST Patient has POLST: No POLST Status: Full Code PD ED PE NORMAL - Vitals Vital signs reviewed: Yes - General General: Alert and oriented X 3, No acute distress - HEENT HEENT: PERRL, EOMI (She has nystagmus on far rightward gaze only), Ears normal, Pharynx benign - Neck Neck: Supple, no meningeal sign, No bony TTP - Abdomen Abdomen: Soft, Non tender, Other (Bedside ultrasound demonstrates single live intrauterine with a heart rate of 140) - Neuro Neuro: Alert and oriented X 3, Normal speech, Other (Normal finger to nose and heel to vazquez testing, NIH stroke scale of 0.) Eye Opening: Spontaneous Motor: Obeys Commands Verbal: Oriented GCS Score: 15 - Psych Psych: Normal mood, Normal affect Results - Vitals Vitals: Vital Signs - 24 hr 05/12/18 13:08 Temperature 35.9 C L Heart Rate 71 Respiratory 18 Rate Blood Pressure 130/70 O2 Saturation 100 Oxygen O2 Source Room air PD MEDICAL DECISION MAKING - ED course ED course: 22-year-old woman who is presents with peripheral vertigo which is treated with meclizine and Zofran. There is no evidence of a serious or central cause. Departure - Departure Disposition: 01 Home, Self Care Clinical Impression: Peripheral vertigo Qualifiers: Laterality: right Qualified Code(s): H81.391 - Other peripheral vertigo, right ear Condition: Good Record reviewed to determine appropriate education?: Yes Instructions: ED BPV Vertigo Prescriptions: Meclizine HCl 25 mg PO Q6H PRN #20 tab.chew PRN Reason: Dizziness Ondansetron Odt [Zofran] 4 mg TL Q6H PRN #10 tablet PRN Reason: Nausea / Vomiting Comments: Call your doctor to arrange a follow-up appointment, make the next available appointment. In the interim, return anytime if worse or if new symptoms develop.
== END 2018-05-12 14:21 | disposition home or self-care (01) ==
LOC: ED 12:51
DX: O99.89 Other specified diseases and conditions complicating pregnancy, childbirth and the puerperium (principal); H81.391 Other peripheral vertigo, right ear; O10.912 Unspecified pre-existing hypertension complicating pregnancy, second trimester; O99.332 Smoking (tobacco) complicating pregnancy, second trimester; F17.200 Nicotine dependence, unspecified, uncomplicated; Z3A.18 18 weeks gestation of pregnancy
CPT/HCPCS: 99283; A9270; Q0162

== ENCOUNTER 2018-06-05 13:43 | Outpatient (CLI) | payer MEDICAID ==
--- NOTE | 2018-06-06 09:48 | Ultrasound Report ---
Reason: 16 WEEKS GESTATION OF Procedure Date: 06/05/2018 Accession Number: [id number] / [id number] Procedure: US - OB Detailed Eval CPT Code: FULL RESULT: EXAM: COMPLETE OBSTETRICAL ULTRASOUND EXAM DATE: 06/05/2018 02:15 PM. CLINICAL HISTORY: anatomic survey. COMPARISON: None. TECHNIQUE: Real-time sonographic evaluation of the fetus performed by the tester equipment. Multiple career services representative static images were saved for review. DATING: Established EGA 21 weeks 4 days with ELIJAH 10/12/2018 based on supervisor core shop/first ultrasound. EGA 24 weeks 1 day with ELIJAH 09/24/2018 based on LMP. EGA 22 weeks 1 day with ELIJAH 10/08/2018 based on the current ultrasound. GENERAL EVALUATION Frank[place] . Cardiac activity: 144 bpm. movement: Visualized. Presentation: Variable Placenta: Anterior position. No evidence for previa. Umbilical cord: 3 vessel cord. Central placental cord origin. Amniotic fluid: KWADWO 15.5 cm MVP 4.2 cm. BIOMETRY Bi-Parietal Diameter (BPD): 5.3 cm, 22 weeks 0 days Head Circumference (HC): 19.4 cm, 21 weeks 4 days Abdominal Circumference (AC): 16.7 cm, 21 weeks 5 days Femur Length (FL): 4.0 cm, 22 weeks 5 days Estimated Weight: 484 g, 76th percentile for 21 weeks 4 days. ANATOMY The intracranial structures, profile, face/nose/lips, spine, 4 chamber heart and outflow tracts, stomach, abdominal wall and cord insertion, diaphragm, kidneys, bladder, and extremities were visualized and demonstrate no abnormality. MATERNAL STRUCTURES Uterus: Unremarkable. Cervix: Long and closed. Transabdominal length 4.2 cm. Right ovary/adnexa: Unremarkable. Left ovary/adnexa: Unremarkable. Free fluid: None. IMPRESSION: 1. Frankel live intrauterine with gestational age 21 weeks 4 days based on first ultrasound. 2. Estimated weight is within expected limits for assigned dating. 3. Normal anatomic survey. No anatomic abnormalities are detected at this time. RADIA
== END 2018-06-05 13:44 | disposition home or self-care (01) ==
LOC: DI 13:43
PROVIDERS: ATTEND Obstetrics & Gynecology
DX: Z36.89 Encounter for other specified antenatal screening (principal)
CPT/HCPCS: 76811

== ENCOUNTER 2018-06-11 23:43 | Emergency (ER) | payer MEDICAID ==
--- NOTE | 2018-06-12 00:20 | ED Physician Documentation ---
History of Present Illness - Stated complaint Stated Complaint: BODY ACHES,COUGH,N/V - Chief complaint Chief Complaint: General - History obtained from History obtained from: Patient - History of Present Illness Timing: How many days ago (2) Pain level now: 8 Improved by: nothing Worsened by: PO intake - Additonal information Additional information: c/o gradual onset, gradually worsening body aches, chills, nausea, vomiting, abdominal cramping (periumbilical). Symptoms began 2 days ago. Has not taken temperature at home. Patient says she called [facility] and spoke to someone from ob, and (per patient) they recommended patient come to the emergency department for evaluation. Patient is approximately 22 weeks (US 06/05 demonstrated IUG 21 weeks 4 days). 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 She says she has not been able to keep any PO down since this morning, although she did tolerate 1000mg acetaminophen at approximately 10 PM 9th [facility] ED visit in 7 months. 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 : Kidney stones, Other HEENT: None Psych: None Musculoskeletal: None Derm: None - Past Surgical History Past Surgical History: Yes General: Appendectomy /RESIDENTIAL THERAPIST: section, Other - Present Medications Home Medications: Ambulatory Orders Medication Instructions Recorded Confirmed Metoprolol Tartrate 25 mg PO BID #60 tablet 02/02/18 05/12/18 Meclizine HCl 25 mg PO Q6H PRN #20 tab.chew 05/12/18 Ondansetron Odt [Zofran] 4 mg TL Q6H PRN #10 tablet 05/12/18 - Allergies Allergies/Adverse Reactions: Allergies Allergy/AdvReac Type Severity Reaction Status Date / Time metoclopramide [From Reglan] Allergy Unknown Verified 06/11/18 23:49 IVP dye Allergy Unknown Uncoded 06/11/18 23:49 - Social History Does the pt smoke?: Yes Smoking Status: Current every day smoker Does the pt drink ETOH?: No Does the pt have substance abuse?: No - Immunizations Immunizations are current?: Yes - POLST Patient has POLST: No POLST Status: Full Code PD ED PE NORMAL - Vitals Vital signs reviewed: Yes - General General: Alert and oriented X 3, No acute distress, Well developed/nourished - HEENT HEENT: Moist mucous membranes - Cardiac Cardiac: No murmur - Respiratory Respiratory: No respiratory distress, Clear bilaterally - Abdomen Abdomen: Normal bowel sounds, Soft, Non tender, Non distended - Back Back: No CVA TTP - Derm Derm: Normal color, Warm and dry, No rash - Extremities Extremities: No edema PD ED PE EXPANDED - Cardiac Cardiac: Tachy, Regular Rhythm Results - Vitals Vitals: Vital Signs - 24 hr 06/11/18 06/12/18 06/12/18 23:45 00:08 02:14 Temperature 36.5 C 36.6 C Heart Rate 119 H 109 H 93 Respiratory 18 18 14 Rate Blood Pressure 144/75 H 130/65 121/74 O2 Saturation 97 98 98 06/12/18 02:19 Temperature Heart Rate 99 Respiratory 18 Rate Blood Pressure 121/74 O2 Saturation 100 Oxygen O2 Source Room air - Labs Labs: Laboratory Tests 06/12/18 06/12/18 06/12/18 00:14 00:55 00:55 WBC 9.4 RBC 3.70 L Hgb 11.1 L Hct 32.0 L MCV 86.4 MCH 30.1 MCHC 34.9 RDW 12.9 Plt Count 194 MPV 9.1 Neut # (Auto) 8.2 H Lymph # (Auto) 0.6 L [place] # (Auto) 0.4 Eos # (Auto) 0.1 Baso # (Auto) 0.0 Absolute Nucleated RBC 0.00 Nucleated RBC % 0.0 Sodium 134 L Potassium 3.3 L Chloride 105 Carbon Dioxide 19 L Anion Gap 10.0 BUN 10 Creatinine 0.5 Estimated GFR (MDRD) 154 Glucose 94 Calcium 8.4 L Total Bilirubin 0.2 AST 12 ALT 12 Alkaline Phosphatase 73 Total Protein 6.7 Albumin 2.9 L Globulin 3.8 Albumin/Globulin Ratio 0.8 L Lipase 18 L Influenza A (Rapid) Negative Influenza B (Rapid) Negative PD MEDICAL DECISION MAKING - ED course Complexity details: reviewed old records, reviewed results, re-evaluated patient, considered differential, d/w patient ED course: Patient reported resolution of nausea after IV fluids and IV zofran. She continued to c/o abdominal cramping. It is too soon to give more tylenol (took 1 gram at approximately 10 PM). Given 2mg IV morphine with mild improvement. Departure - Departure Disposition: 01 Home, Self Care Clinical Impression: Nausea and vomiting during Condition: Good Instructions: ED Diet Vomiting Diarrhea, ED Nausea Vomiting Comments: Call your doctor this morning to arrange for immediate follow-up Discharge Date/Time: 06/12/18 02:26
[2018-06-12] MEDS ORDERED: SODIUM CHLORIDE 0.9% 1,000 ML IV STA (00:36)
[2018-06-12] MEDS ORDERED: ONDANSETRON 4 MG/2 ML VIAL IVP STA (00:36)
[2018-06-12 01:16] LABS: BASOPHILS % (AUTO) 0.4 %; EOSINOPHILS # (AUTO) 0.1 10^3/uL (0.0-0.7); EOSINOPHILS % (AUTO) 1.6 %; HGB - HEMOGLOBIN 11.1 g/dL (12.0-16.0); LYMPHOCYTES # (AUTO) 0.6 10^3/uL (1.5-3.5); LYMPHOCYTES % (AUTO) 6.4 %; MEAN CORPUSCULAR HEMOGLOBIN 30.1 pg (27.0-31.0); MEAN CORPUSCULAR HGB CONC 34.9 g/dL (32.0-36.0); MEAN CORPUSCULAR VOLUME 86.4 fL (81.0-99.0); MEAN PLATELET VOLUME 9.1 fL (7.9-10.8); MONOCYTES # (AUTO) 0.4 10^3/uL (0.0-1.0); MONOCYTES % (AUTO) 4.7 %; NEUTROPHILS # (AUTO) 8.2 10^3/uL (1.5-6.6); NEUTROPHILS % (AUTO) 86.9 %; PLT - PLATELET COUNT 194 10^3/uL (130-450); RED CELL DISTRIBUTION WIDTH 12.9 % (12.0-15.0); WHITE BLOOD COUNT 9.4 x10^3/uL (4.8-10.8)
[2018-06-12 01:22] LABS: ALBUMIN 2.9 g/dL (3.2-5.5); ALBUMIN/GLOBULIN RATIO 0.8 (1.0-2.2); BILIRUBIN,TOTAL 0.2 mg/dL (0.2-1.0); CALCIUM 8.4 mg/dL (8.5-10.3); CREATININE 0.5 mg/dL (0.4-1.0); TOTAL PROTEIN 6.7 g/dL (6.7-8.2)
[2018-06-12] MEDS ORDERED: MORPHINE 2 MG/ML CARPUJECT IVP STA (02:06)
[2018-06-12 02:15] VITALS: BP 121/74
== END 2018-06-12 02:26 | disposition home or self-care (01) ==
LOC: ED 23:43
DX: O21.2 Late vomiting of pregnancy (principal); Z3A.22 22 weeks gestation of pregnancy; O99.332 Smoking (tobacco) complicating pregnancy, second trimester; I10 Essential (primary) hypertension; E78.00 Pure hypercholesterolemia, unspecified
CPT/HCPCS: 36415; 80053; 83690; 85025; 87275; 87276; 96361; 96374; 96375; 99283

== ENCOUNTER 2018-06-24 19:16 | Outpatient (CLI) | payer MEDICAID ==
[2018-06-24 19:47] LABS: ALBUMIN 2.9 g/dL (3.2-5.5); ALBUMIN/GLOBULIN RATIO 0.8 (1.0-2.2); BILIRUBIN,TOTAL 0.2 mg/dL (0.2-1.0); CALCIUM 8.7 mg/dL (8.5-10.3); CREATININE 0.4 mg/dL (0.4-1.0); TOTAL PROTEIN 6.5 g/dL (6.7-8.2); URIC ACID 3.2 mg/dL (2.6-7.2)
[2018-06-24 19:49] LABS: HGB - HEMOGLOBIN 10.8 g/dL (12.0-16.0); MEAN CORPUSCULAR HEMOGLOBIN 30.4 pg (27.0-31.0); MEAN CORPUSCULAR HGB CONC 35.3 g/dL (32.0-36.0); MEAN CORPUSCULAR VOLUME 86.2 fL (81.0-99.0); MEAN PLATELET VOLUME 8.7 fL (7.9-10.8); RED BLOOD COUNT 3.55 10^6/uL (4.20-5.40)
== END 2018-06-24 19:17 | disposition home or self-care (01) ==
LOC: LAB 19:16
PROVIDERS: ATTEND Nurse Practitioner Obstetrics & Gynecology
DX: L29.9 Pruritus, unspecified (principal)
CPT/HCPCS: 36415; 80053; 82239; 84550; 85027

== ENCOUNTER 2018-06-26 21:01 | Outpatient (CLI) | payer MEDICAID | END 2018-06-26 21:02 | disposition critical access hospital (66) | LOC: EMS 21:01 | PROVIDERS: ATTEND Surgery | DX: O99.89 Other specified diseases and conditions complicating pregnancy, childbirth and the puerperium (principal); R06.02 Shortness of breath; R11.0 Nausea; Z3A.25 25 weeks gestation of pregnancy | CPT/HCPCS: A0425; A0429; A0999 ==

== ENCOUNTER 2018-06-26 21:26 | Emergency (ER) | payer MEDICAID ==
--- NOTE | 2018-06-26 21:41 | ED Physician Documentation ---
History of Present Illness - Stated complaint Stated Complaint: SOA, 25 WKS PREG - Chief complaint Chief Complaint: Resp - History obtained from History obtained from: Patient - History of Present Illness Timing: Today (This is a 22-year-old at 25 weeks gestation. She was in her usual state of health and talking on face time with someone when she felt like her left eyelid started drooping and then she became very anxious and started shaking and became short of breath. She now feels back to normal. She denies urinary complaints, cramping or bleeding.) Review of Systems Constitutional: denies: Fever, Chills Nose: denies: Rhinorrhea / runny nose Cardiac: reports: Palpitations. denies: Chest pain / pressure Respiratory: reports: Dyspnea. 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 : Kidney stones, Other HEENT: None Psych: None Musculoskeletal: None Derm: None - Past Surgical History Past Surgical History: Yes General: Appendectomy /AGRICULTURAL EQUIPMENT MECHANIC: section, Other - Present Medications Home Medications: Ambulatory Orders Medication Instructions Recorded Confirmed Metoprolol Tartrate 25 mg PO BID #60 tablet 02/02/18 05/12/18 Meclizine HCl 25 mg PO Q6H PRN #20 tab.chew 05/12/18 Ondansetron Odt [Zofran] 4 mg TL Q6H PRN #10 tablet 05/12/18 - Allergies Allergies/Adverse Reactions: Allergies Allergy/AdvReac Type Severity Reaction Status Date / Time metoclopramide [From Reglan] Allergy Unknown Verified 06/26/18 21:37 IVP dye Allergy Unknown Uncoded 06/26/18 21:37 - Social History Does the pt smoke?: Yes Smoking Status: Current every day smoker Does the pt drink ETOH?: No Does the pt have substance abuse?: No - Immunizations Immunizations are current?: Yes - POLST Patient has POLST: No POLST Status: Full Code PD ED PE NORMAL - Vitals Vital signs reviewed: Yes - General General: Alert and oriented X 3, No acute distress - HEENT HEENT: PERRL, EOMI - Neck Neck: Supple, no meningeal sign, No bony TTP - Cardiac Cardiac: RRR, No murmur - Respiratory Respiratory: No respiratory distress, Clear bilaterally - Abdomen Abdomen: Non tender - Female Female : Other ( heart tones per the nurse were 163.) - Back Back: No CVA TTP, No spinal TTP - Extremities Extremities: No edema, No calf tenderness / cord - Neuro Neuro: Alert and oriented X 3, Normal speech Results - Vitals Vitals: Vital Signs - 24 hr 06/26/18 06/26/18 21:35 21:37 Temperature 37.3 C Heart Rate 107 H Respiratory 20 20 Rate Blood Pressure 132/92 H O2 Saturation 97 Oxygen O2 Source Room air - EKG (time done) 2144 Rate: Rate (enter#) (91) Rhythm: NSR Plain: Normal Intervals: Normal SD Ischemia: Non specific changes. No: ST elevation c/w ischemia, T wave inversion Computer interpretation: Agree with computer - Labs Labs: Laboratory Tests 06/26/18 06/26/18 06/26/18 21:44 21:44 22:18 WBC 11.2 H RBC 3.56 L Hgb 10.4 L Hct 31.0 L MCV 87.2 MCH 29.3 MCHC 33.7 RDW 13.0 Plt Count 237 MPV 8.5 Neut # (Auto) 8.3 H Lymph # (Auto) 1.8 [place] # (Auto) 0.8 Eos # (Auto) 0.3 Baso # (Auto) 0.0 Absolute Nucleated RBC 0.01 Nucleated RBC % 0.1 Sodium 137 Potassium 2.9 L Chloride 105 Carbon Dioxide 23 Anion Gap 9.0 BUN 7 Creatinine 0.4 Estimated GFR (MDRD) 200 Glucose 124 H Calcium 8.8 Total Bilirubin < 0.2 L AST 13 ALT 10 Alkaline Phosphatase 78 Total Protein 6.2 L Albumin 2.7 L Globulin 3.5 Albumin/Globulin Ratio 0.8 L Lipase 22 Urine Color YELLOW Urine Clarity CLEAR Urine pH 6.5 Ur Specific [place] 1.020 Urine Protein NEGATIVE Urine Glucose (UA) 100 H Urine Ketones NEGATIVE Urine Occult Blood NEGATIVE Urine Nitrite NEGATIVE Urine Bilirubin NEGATIVE Urine Urobilinogen 0.2 (NORMAL) Ur Leukocyte Esterase NEGATIVE Ur Microscopic Review NOT INDICATED Urine Culture Comments NOT INDICATED PD MEDICAL DECISION MAKING - ED course ED course: This is a 22-year-old woman who suddenly had shortness of breath and facial drooping which is now resolved. Most consistent with panic attack. She has a history of preeclampsia but she has no proteinuria here. And her blood pressure is borderline at most. She was asymptomatic throughout her ED stay. Departure - Departure Disposition: 01 Home, Self Care Clinical Impression: Dyspnea Qualifiers: Dyspnea type: shortness of breath Qualified Code(s): R06.02 - Shortness of breath; R06.00 - Dyspnea, unspecified; R06.01 - Orthopnea Condition: Good Instructions: ED Dyspnea Shortness of Breath Comments: As discussed the episode you had is most consistent with panic attack. That said if you develop new or recurrent symptoms please return for reevaluation.
[2018-06-26 21:50] LABS: BASOPHILS % (AUTO) 0.3 %; EOSINOPHILS # (AUTO) 0.3 10^3/uL (0.0-0.7); EOSINOPHILS % (AUTO) 2.6 %; HGB - HEMOGLOBIN 10.4 g/dL (12.0-16.0); LYMPHOCYTES # (AUTO) 1.8 10^3/uL (1.5-3.5); LYMPHOCYTES % (AUTO) 16.2 %; MEAN CORPUSCULAR HEMOGLOBIN 29.3 pg (27.0-31.0); MEAN CORPUSCULAR HGB CONC 33.7 g/dL (32.0-36.0); MEAN CORPUSCULAR VOLUME 87.2 fL (81.0-99.0); MEAN PLATELET VOLUME 8.5 fL (7.9-10.8); MONOCYTES # (AUTO) 0.8 10^3/uL (0.0-1.0); MONOCYTES % (AUTO) 6.9 %; NEUTROPHILS # (AUTO) 8.3 10^3/uL (1.5-6.6); PLT - PLATELET COUNT 237 10^3/uL (130-450); RED BLOOD COUNT 3.56 10^6/uL (4.20-5.40); WHITE BLOOD COUNT 11.2 x10^3/uL (4.8-10.8)
[2018-06-26 22:06] LABS: ALBUMIN 2.7 g/dL (3.2-5.5); ALBUMIN/GLOBULIN RATIO 0.8 (1.0-2.2); ALKALINE PHOSPHATASE 78 IU/L (42-121); ALT ALANINE AMINOTRANSFERASE 10 IU/L (10-60); AST ASPARTATE AMINOTRANSFERASE 13 IU/L (10-42); BILIRUBIN,TOTAL < 0.2 mg/dL (0.2-1.0); BUN - BLOOD UREA NITROGEN 7 mg/dL (6-20); CALCIUM 8.8 mg/dL (8.5-10.3); CARBON DIOXIDE - CO2 23 mmol/L (21-32); CHLORIDE 105 mmol/L (101-111); CREATININE 0.4 mg/dL (0.4-1.0); GFR - MDRD 200 (>89); GLUCOSE 124 mg/dL (70-100); LIPASE 22 U/L (22-51); SODIUM 137 mmol/L (135-145); TOTAL PROTEIN 6.2 g/dL (6.7-8.2)
[2018-06-26] MEDS ORDERED: POTASSIUM BICARB 25 MEQ TABLET PO STA (22:19)
[2018-06-26 22:30] LABS: BILIRUBIN,URINE NEGATIVE (NEGATIVE); GLUCOSE, URINE (UA) 100 mg/dL (NEGATIVE); KETONES,URINE (UA) NEGATIVE (NEGATIVE); LEUKOCYTE ESTERASE, URINE NEGATIVE (NEGATIVE); NITRITE,URINE NEGATIVE (NEGATIVE); OCCULT BLOOD,URINE NEGATIVE (NEGATIVE); PH,URINE 6.5 PH (5.0-7.5); PROTEIN,URINE NEGATIVE (NEGATIVE); UROBILINOGEN,URINE 0.2 (NORMAL) E.U./dL (NORMAL)
[2018-06-26 22:31] LABS: CLARITY,URINE CLEAR (CLEAR)
[2018-06-26 23:32] VITALS: BP 104/58
== END 2018-06-26 23:36 | disposition home or self-care (01) ==
LOC: EDUNIT# → ED 21:26
DX: O99.512 Diseases of the respiratory system complicating pregnancy, second trimester (principal); R06.02 Shortness of breath; R06.00 Dyspnea, unspecified; R06.01 Orthopnea; O99.332 Smoking (tobacco) complicating pregnancy, second trimester; Z3A.25 25 weeks gestation of pregnancy; I10 Essential (primary) hypertension; E78.00 Pure hypercholesterolemia, unspecified; Z87.59 Personal history of other complications of pregnancy, childbirth and the puerperium
CPT/HCPCS: 36415; 80053; 81003; 83690; 85025; 87275; 87276; 93005; 99283; A9270; 81001; 87086

== ENCOUNTER 2018-07-10 20:11 | Outpatient (CLI) | payer MEDICAID ==
[2018-07-10 21:08] VITALS: BP 121/79
[2018-07-10] MEDS ORDERED: SODIUM CHLORIDE FLUSH 0.9% 10 ML SYRINGE IVP PRN (21:39)
[2018-07-10] MEDS ORDERED: SODIUM CHLORIDE FLUSH 0.9% 10 ML SYRINGE ONE (21:50)
[2018-07-10 21:55] LABS: BILIRUBIN,URINE NEGATIVE (NEGATIVE); GLUCOSE, URINE (UA) 100 mg/dL (NEGATIVE); KETONES,URINE (UA) NEGATIVE (NEGATIVE); LEUKOCYTE ESTERASE, URINE NEGATIVE (NEGATIVE); NITRITE,URINE NEGATIVE (NEGATIVE); OCCULT BLOOD,URINE NEGATIVE (NEGATIVE); PH,URINE 6.5 PH (5.0-7.5); PROTEIN,URINE NEGATIVE (NEGATIVE); UROBILINOGEN,URINE 0.2 (NORMAL) E.U./dL (NORMAL)
[2018-07-10 21:56] LABS: CLARITY,URINE CLEAR (CLEAR)
[2018-07-10] MEDS: LACTATED RINGERS 2,000 ML IV SCH ×2 (22:15→23:15)
[2018-07-10 22:28] LABS: RUPTURE OF MEMBRANES PLUS NEGATIVE (NEGATIVE)
[2018-07-10 22:39] LABS: BASOPHILS # (AUTO) 0.1 10^3/uL (0.0-0.1); BASOPHILS % (AUTO) 0.4 %; EOSINOPHILS # (AUTO) 0.4 10^3/uL (0.0-0.7); EOSINOPHILS % (AUTO) 2.6 %; HGB - HEMOGLOBIN 10.6 g/dL (12.0-16.0); LYMPHOCYTES # (AUTO) 2.2 10^3/uL (1.5-3.5); LYMPHOCYTES % (AUTO) 15.2 %; MEAN CORPUSCULAR HEMOGLOBIN 29.4 pg (27.0-31.0); MEAN CORPUSCULAR HGB CONC 34.2 g/dL (32.0-36.0); MEAN CORPUSCULAR VOLUME 85.9 fL (81.0-99.0); MEAN PLATELET VOLUME 9.3 fL (7.9-10.8); MONOCYTES # (AUTO) 1.1 10^3/uL (0.0-1.0); NEUTROPHILS # (AUTO) 10.6 10^3/uL (1.5-6.6); NEUTROPHILS % (AUTO) 73.8 %; PLT - PLATELET COUNT 237 10^3/uL (130-450); RED BLOOD COUNT 3.59 10^6/uL (4.20-5.40); RED CELL DISTRIBUTION WIDTH 12.9 % (12.0-15.0); WHITE BLOOD COUNT 14.3 x10^3/uL (4.8-10.8)
[2018-07-10 23:02] LABS: ALBUMIN 2.7 g/dL (3.2-5.5); ALBUMIN/GLOBULIN RATIO 0.7 (1.0-2.2); ALKALINE PHOSPHATASE 82 IU/L (42-121); ALT ALANINE AMINOTRANSFERASE < 10 IU/L (10-60); AST ASPARTATE AMINOTRANSFERASE < 10 IU/L (10-42); BILIRUBIN,TOTAL < 0.2 mg/dL (0.2-1.0); BUN - BLOOD UREA NITROGEN 7 mg/dL (6-20); CALCIUM 8.9 mg/dL (8.5-10.3); CARBON DIOXIDE - CO2 23 mmol/L (21-32); CHLORIDE 107 mmol/L (101-111); CREATININE 0.3 mg/dL (0.4-1.0); GFR - MDRD 278 (>89); GLUCOSE 72 mg/dL (70-100); SODIUM 136 mmol/L (135-145); TOTAL PROTEIN 6.6 g/dL (6.7-8.2)
== END 2018-07-11 00:25 | disposition home or self-care (01) ==
LOC: WFO 20:11 → FBP 20:18 → WFO 07-11 00:25
PROVIDERS: ATTEND Obstetrics & Gynecology
DX: O98.812 Other maternal infectious and parasitic diseases complicating pregnancy, second trimester (principal); A08.4 Viral intestinal infection, unspecified; Z3A.26 26 weeks gestation of pregnancy
CPT/HCPCS: 80053; 81003; 84112; 85025; 87210; 96360; 96361; 99214; J7120; 81001; 87086

== ENCOUNTER 2018-09-07 20:23 | Outpatient (CLI) | payer MEDICAID ==
[2018-09-07 20:52] VITALS: BP 124/86
[2018-09-07] MEDS ORDERED: CYCLOBENZAPRINE 10 MG TABLET PO ONE (21:16)
[2018-09-07 21:38] LABS: BILIRUBIN,URINE NEGATIVE (NEGATIVE); GLUCOSE, URINE (UA) NEGATIVE (NEGATIVE); KETONES,URINE (UA) NEGATIVE (NEGATIVE); LEUKOCYTE ESTERASE, URINE NEGATIVE (NEGATIVE); NITRITE,URINE NEGATIVE (NEGATIVE); OCCULT BLOOD,URINE NEGATIVE (NEGATIVE); PH,URINE 7.5 PH (5.0-7.5); PROTEIN,URINE NEGATIVE (NEGATIVE); UROBILINOGEN,URINE 0.2 (NORMAL) E.U./dL (NORMAL)
[2018-09-07 21:48] LABS: AMORPHOUS SEDIMENT,UR Rare /LPF; BACTERIA,URINE Rare /HPF (None Seen); CLARITY,URINE HAZY (CLEAR); EPITHELIAL CELLS,UR RARE Transitional /HPF (<= Few); RBC,URINE None Seen /HPF (0-5); SQUAMOUS EPITHELIAL CELL,UR RARE Squamous (<= Few)
--- NOTE | 2018-09-12 16:16 | PROVIDER PROGRESS NOTE ---
- HPI Chief Complaint: Other (back pain between shoulder blades) Current : Current EDU 10/12/18 Gestation 35 Weeks and 0 Days 3 Para 1 Vital Signs Temperature 98.2 F 09/07/18 20:33 Heart Rate 111 H 09/07/18 20:33 Respiratory Rate 20 09/07/18 20:33 Blood Pressure 124/86 H 09/07/18 20:33 O2 Saturation 100 09/07/18 20:33 Temperature 98.2 F 09/07/18 20:33 Heart Rate 111 H 09/07/18 20:33 Respiratory Rate 20 09/07/18 20:33 Blood Pressure 124/86 H 09/07/18 20:33 O2 Saturation 100 09/07/18 20:33 - Procedures OB Procedure Performed: NST Diagnosis/Indication for NST: Other (back pain) NST Procedure: 135 mod radha 15x15 accels no decels TOCO; Quiet Service Date of procedure: 09/07/18 Findings: 22 yo at 35 weeks followed by outside provider presents with upper back pain. Denies CTX/VB/LOF. Has baseline fibromyalgia nd muscle cramps. Describes pain to be isolated to her upper back and betwen shoulder blades. Has had this pain in the past. Described as muscle spasm. Not sharp, no tearing sensation - Plan Plan: 25 y at 35 wga with upper back pain. CAT I tracing UA neg Pain appears MSk in nature Reviewed cyclobenzaprine as Cat B in Pt responded wel to 5 mg dose Outpt prescription provided. DC to home with fu with primary OB Warning signs reviewed
== END 2018-09-07 22:09 | disposition home or self-care (01) ==
LOC: WFO 20:23 → FBP 20:25 → WFO 22:09
PROVIDERS: ATTEND Obstetrics & Gynecology
DX: O99.89 Other specified diseases and conditions complicating pregnancy, childbirth and the puerperium (principal); M54.6 Pain in thoracic spine; Z3A.35 35 weeks gestation of pregnancy
CPT/HCPCS: 81001; 87081; 99213; A9270

== ENCOUNTER 2018-09-16 14:16 | Outpatient (CLI) | payer MEDICAID ==
[2018-09-16 14:59] LABS: BASOPHILS % (AUTO) 0.4 %; EOSINOPHILS # (AUTO) 0.2 10^3/uL (0.0-0.7); EOSINOPHILS % (AUTO) 1.8 %; HGB - HEMOGLOBIN 9.5 g/dL (12.0-16.0); LYMPHOCYTES # (AUTO) 1.7 10^3/uL (1.5-3.5); LYMPHOCYTES % (AUTO) 16.9 %; MEAN CORPUSCULAR HEMOGLOBIN 26.3 pg (27.0-31.0); MEAN CORPUSCULAR HGB CONC 30.9 g/dL (32.0-36.0); MEAN PLATELET VOLUME 10.9 fL (7.9-10.8); MONOCYTES % (AUTO) 9.4 %; NEUTROPHILS # (AUTO) 7.2 10^3/uL (1.5-6.6); NEUTROPHILS % (AUTO) 70.9 %; PLT - PLATELET COUNT 239 10^3/uL (130-450); RED BLOOD COUNT 3.61 10^6/uL (4.20-5.40); RED CELL DISTRIBUTION WIDTH 13.5 % (12.0-15.0); WHITE BLOOD COUNT 10.1 x10^3/uL (4.8-10.8)
[2018-09-16 15:10] LABS: CREATININE,URINE 131.4 mg/dL; PROTEIN/CREATININE RATIO,URINE 0.1 (<=0.2)
[2018-09-16 15:24] LABS: ALT ALANINE AMINOTRANSFERASE < 10 IU/L (10-60); AST ASPARTATE AMINOTRANSFERASE < 10 IU/L (10-42); CREATININE 0.5 mg/dL (0.4-1.0); GFR - MDRD 154 (>89); URIC ACID 4.6 mg/dL (2.6-7.2)
[2018-09-16 16:29] VITALS: BP 118/75
--- NOTE | 2018-09-17 12:38 | PROCEDURE REPORT ---
- HPI Diagnosis/Indication for NST: Other (R/O Preeclampsia) Current EDU 10/10/18 Gestation 36 Weeks and 4 Days 3 Para 1 Vital Signs Temperature 37.0 C 09/16/18 14:31 Heart Rate 92 09/16/18 14:31 Respiratory Rate 20 09/16/18 14:31 Blood Pressure 129/88 H 09/16/18 14:31 O2 Saturation 98 09/16/18 14:31 Temperature 37.0 C 09/16/18 14:31 Heart Rate 85 09/16/18 15:42 Respiratory Rate 18 09/16/18 15:42 Blood Pressure 118/75 09/16/18 15:42 O2 Saturation 98 09/16/18 15:42 - NST Procedure NST Procedure Start Date 09/16/18 Start Time 14:24 Stop Time 15:45 Vibroacoustic Stimulation Used No Patient States Movement Yes - Results and Plan Findings/Impression: DOS 09/16/2018 1. 36.4 weeks. Hx of PreE with last Pg, BP 142/90 in the office 2. normal labs urine, plateletts, P/C 3. anemia. Plan 24 hour TP pending repeat NST saturday
== END 2018-09-16 16:00 | disposition home or self-care (01) ==
LOC: WFO 14:16 → FBP 14:17 → WFO 16:00
PROVIDERS: ATTEND Obstetrics & Gynecology
DX: O16.3 Unspecified maternal hypertension, third trimester (principal); O99.013 Anemia complicating pregnancy, third trimester; O99.210 Obesity complicating pregnancy, unspecified trimester; Z3A.36 36 weeks gestation of pregnancy
CPT/HCPCS: 36415; 59025; 81001; 82565; 82570; 83615; 84156; 84450; 84460; 84550; 85025; 87491; 87591; 87661; 99213

== ENCOUNTER 2018-09-17 13:30 | Outpatient (CLI) | payer MEDICAID ==
[2018-09-17 14:36] LABS: BILIRUBIN,URINE NEGATIVE (NEGATIVE); GLUCOSE, URINE (UA) NEGATIVE (NEGATIVE); KETONES,URINE (UA) NEGATIVE (NEGATIVE); LEUKOCYTE ESTERASE, URINE MODERATE (NEGATIVE); NITRITE,URINE NEGATIVE (NEGATIVE); OCCULT BLOOD,URINE NEGATIVE (NEGATIVE); PH,URINE 7.5 PH (5.0-7.5); PROTEIN,URINE NEGATIVE (NEGATIVE); UROBILINOGEN,URINE 0.2 (NORMAL) E.U./dL (NORMAL)
[2018-09-17 14:45] LABS: BACTERIA,URINE Rare /HPF (None Seen); CLARITY,URINE SL. CLOUDY (CLEAR); RBC,URINE 0-5 /HPF (0-5); SQUAMOUS EPITHELIAL CELL,UR MOD Squamous (<= Few)
[2018-09-17 23:26] LABS: TRICHOMONAS VAGINALIS DNA NEGATIVE (NEGATIVE)
== END 2018-09-17 23:59 | disposition home or self-care (01) ==
LOC: LAB.R 13:30
PROVIDERS: ATTEND Obstetrics & Gynecology
DX: O99.210 Obesity complicating pregnancy, unspecified trimester (principal)
CPT/HCPCS: 81001; 87086; 87491; 87591; 87661

== ENCOUNTER 2018-09-17 15:19 | Outpatient (CLI) | payer MEDICAID ==
[2018-09-17 16:25] LABS: CREATININE,URINE 91.8 mg/dL
== END 2018-09-17 23:59 | disposition home or self-care (01) ==
LOC: LAB.R 15:19
PROVIDERS: ATTEND Obstetrics & Gynecology
DX: O99.210 Obesity complicating pregnancy, unspecified trimester (principal)
CPT/HCPCS: 82570; 84156

== ENCOUNTER 2018-09-21 18:47 | Outpatient (CLI) | payer MEDICAID ==
[2018-09-21 20:29] VITALS: BP 130/79
--- NOTE | 2018-09-24 19:06 | PROVIDER PROGRESS NOTE ---
- HPI Chief Complaint: Labor Check Current : Current EDU 10/12/18 Gestation 37 Weeks and 0 Days 3 Para 1 Vital Signs Temperature 98.2 F 09/21/18 18:57 Heart Rate 109 H 09/21/18 18:57 Respiratory Rate 22 09/21/18 18:57 Blood Pressure 130/79 09/21/18 18:57 O2 Saturation 100 09/21/18 18:57 Temperature 98.2 F 09/21/18 18:57 Heart Rate 109 H 09/21/18 18:57 Respiratory Rate 22 09/21/18 18:57 Blood Pressure 130/79 09/21/18 18:57 O2 Saturation 100 09/21/18 18:57 - Exam SVE unchanged Cervix closed and high on serial exams per RN exam - Procedures OB Procedure Performed: NST Diagnosis/Indication for NST: Other (Labor assessment in patient with prior c- section) NST Procedure: DOS: 09/21/18 22 yo at 37 weeks with contractions and hx of prior NST Procedure Start Time 14:24 Stop Time 15:45 EFM 135 mod radha 15x15 accels no decels TOCO: intermittent Cat I tracing Service Date of procedure: 09/21/18 Procedure Details: 22 yo at 37 weeks presents with contractions in the setting of prior c- section NO LOF/VB Endorses FM. Observed over 2 hours with no change in cervical exam Category I tracing No indication for delivery Warning signs reviewed Discharge to home
== END 2018-09-21 20:26 | disposition home or self-care (01) ==
LOC: FBP 18:47 → WFO 18:47
PROVIDERS: ATTEND Obstetrics & Gynecology
DX: Z53.9 Procedure and treatment not carried out, unspecified reason (principal)
CPT/HCPCS: 99213

== ENCOUNTER 2018-09-24 20:04 | Outpatient (CLI) | payer MEDICAID ==
[2018-09-24 20:48] LABS: BASOPHILS % (AUTO) 0.3 %; EOSINOPHILS # (AUTO) 0.2 10^3/uL (0.0-0.7); EOSINOPHILS % (AUTO) 1.6 %; HGB - HEMOGLOBIN 10.2 g/dL (12.0-16.0); LYMPHOCYTES # (AUTO) 1.9 10^3/uL (1.5-3.5); LYMPHOCYTES % (AUTO) 14.4 %; MEAN CORPUSCULAR HEMOGLOBIN 25.3 pg (27.0-31.0); MEAN CORPUSCULAR VOLUME 84.4 fL (81.0-99.0); MEAN PLATELET VOLUME 11.5 fL (7.9-10.8); MONOCYTES % (AUTO) 7.5 %; NEUTROPHILS # (AUTO) 9.8 10^3/uL (1.5-6.6); NEUTROPHILS % (AUTO) 75.4 %; PLT - PLATELET COUNT 268 10^3/uL (130-450); RED BLOOD COUNT 4.03 10^6/uL (4.20-5.40); RED CELL DISTRIBUTION WIDTH 13.4 % (12.0-15.0)
[2018-09-24 21:07] LABS: ALBUMIN 2.7 g/dL (3.2-5.5); ALBUMIN/GLOBULIN RATIO 0.7 (1.0-2.2); ALKALINE PHOSPHATASE 158 IU/L (42-121); ALT ALANINE AMINOTRANSFERASE < 10 IU/L (10-60); AST ASPARTATE AMINOTRANSFERASE < 10 IU/L (10-42); BILIRUBIN,TOTAL 0.4 mg/dL (0.2-1.0); BUN - BLOOD UREA NITROGEN 9 mg/dL (6-20); CALCIUM 8.7 mg/dL (8.5-10.3); CARBON DIOXIDE - CO2 20 mmol/L (21-32); CHLORIDE 102 mmol/L (101-111); CREATININE 0.6 mg/dL (0.4-1.0); GFR - MDRD 125 (>89); GLUCOSE 75 mg/dL (70-100); SODIUM 135 mmol/L (135-145); TOTAL PROTEIN 6.6 g/dL (6.7-8.2); URIC ACID 4.6 mg/dL (2.6-7.2)
[2018-09-24 21:10] LABS: CREATININE,URINE 88.9 mg/dL; PROTEIN/CREATININE RATIO,URINE 0.2 (<=0.2)
[2018-09-24 21:18] LABS: RUPTURE OF MEMBRANES PLUS NEGATIVE (NEGATIVE)
[2018-09-24 21:56] VITALS: BP 133/92
[2018-09-24] MEDS ORDERED: oxyCODONE 5 MG TABLET PO ONE (22:12)
--- NOTE | 2018-09-24 22:18 | PROVIDER PROGRESS NOTE ---
- HPI Chief Complaint: Hypertension/PIH (Pt persented with SANDERS. She has a Hx of PreE with last Pg. She also C/O generalized back pain. She is scheduled for a repeat C/S 2 weeks) Current : Current EDU 10/12/18 Gestation 37 Weeks and 3 Days 3 Para 1 Vital Signs Temperature 36.9 C 09/24/18 20:13 Heart Rate 100 09/24/18 20:13 Respiratory Rate 20 09/24/18 20:13 Blood Pressure 153/93 H 09/24/18 20:13 O2 Saturation 100 09/24/18 20:13 Temperature 36.9 C 09/24/18 20:13 Heart Rate 92 09/24/18 21:44 Respiratory Rate 18 09/24/18 21:44 Blood Pressure 133/92 H 09/24/18 21:44 O2 Saturation 100 09/24/18 21:44 - Procedures OB Procedure Performed: NST (reactrive) NST Procedure: NST Procedure Start Time 14:24 Stop Time 15:45 Service Date of procedure: 09/24/18 Procedure Details: initially her B/P was 153/93 decreased to 115/80. Labs were nonpreE. pt really C/O back pain. SANDERS resolved. given Rx for 5 oxycodone 5 mg. keep appt next week. return should symptoms worsen.
== END 2018-09-24 22:30 | disposition home or self-care (01) ==
LOC: WFO 20:04 → FBP 20:05 → WFO 22:30
PROVIDERS: ATTEND Obstetrics & Gynecology
DX: O13.3 Gestational [pregnancy-induced] hypertension without significant proteinuria, third trimester (principal); Z3A.37 37 weeks gestation of pregnancy
CPT/HCPCS: 80053; 82570; 84112; 84156; 84550; 85025; 99213; A9270; 36415

== ENCOUNTER 2018-09-25 13:54 | Outpatient (CLI) | payer MEDICAID ==
[2018-09-25 14:48] VITALS: BP 125/80
[2018-09-25 15:08] LABS: RUPTURE OF MEMBRANES PLUS NEGATIVE (NEGATIVE)
--- NOTE | 2018-10-01 19:40 | PROVIDER PROGRESS NOTE ---
- HPI Chief Complaint: Other (Rule out rupture membranes) Current : Current EDU 10/12/18 Gestation 37 Weeks and 4 Days 3 Para 1 Vital Signs Temperature 98.4 F 09/25/18 14:10 Heart Rate 78 09/25/18 14:10 Respiratory Rate 17 09/25/18 14:10 Blood Pressure 125/80 09/25/18 14:10 O2 Saturation 99 09/25/18 14:10 Temperature 98.4 F 09/25/18 14:10 Heart Rate 78 09/25/18 14:10 Respiratory Rate 17 09/25/18 14:10 Blood Pressure 125/80 09/25/18 14:10 O2 Saturation 99 09/25/18 14:10 - Procedures OB Procedure Performed: NST Diagnosis/Indication for NST: Other (Possible ROM) NST Procedure: NST Procedure Start Date 09/25/18 Start Time 14:07 Stop Time 15:31 Vibroacoustic Stimulation Used No Patient States Movement Yes Service Date of procedure: 09/25/18 Procedure Details: Ms Gonsalves presented to triage at 37w4d with concern for LOF per vagina. She had IC at about midnight on 09/24/18. Around mid-morning, she passed some fluid per vagina. Intermittent contractions. No VB. Endorses FM. Amnisure collected and returned negative. EFM 125 mod radha 15x15 accels, occ variable decels TOCO: irritable Given presence of variable, Mae was kept under survellance with extended monitoring. EFM over 1 hour showed Cat I tracing No change in SVE over priod of observation SVE closed/long/high Findings: No evidence of ROM or labor with cervical change necessitating delivery as planned via repeat Cat I tracing - Plan Plan: FU in clinic Warning signs reviewed
== END 2018-09-25 15:54 | disposition home or self-care (01) ==
LOC: WFO 13:54 → FBP 13:56 → WFO 15:54
PROVIDERS: ATTEND Obstetrics & Gynecology
DX: Z34.83 Encounter for supervision of other normal pregnancy, third trimester (principal); Z3A.37 37 weeks gestation of pregnancy
CPT/HCPCS: 59025; 84112; 99214

== ENCOUNTER 2018-10-06 22:17 | Observation (INO) | payer MEDICAID ==
--- NOTE | 2018-10-06 23:47 | PROVIDER PROGRESS NOTE ---
- HPI Current : Current EDU 10/12/18 Gestation 39 Weeks and 1 Days 3 Para 1 Vital Signs Temperature 36.7 C 10/06/18 22:25 Heart Rate 82 10/06/18 22:25 Respiratory Rate 16 10/06/18 22:25 Blood Pressure 129/91 H 10/06/18 22:25 O2 Saturation 98 10/06/18 22:25 Temperature 36.7 C 10/06/18 22:25 Heart Rate 87 10/06/18 23:12 Respiratory Rate 16 10/06/18 23:12 Blood Pressure 129/85 H 10/06/18 23:12 O2 Saturation 100 10/06/18 23:12 S- The patient came in tonight complaining about increasing pain and contractions. She had actually been been having some contractions off and on all day.She states that they became stronger however when she came inShe denies any vaginal bleeding or fluid. - Exam Lungs: Lungs are clear to auscultation bilaterally without wheezes, rales or rhonchi Heart: Heart has a regular rate and rhythm without murmur, S3-S4 gallop rhythms Abdomen: The abdomen is soft, pliable and nontender. The old surgical scars are noted. Uterus: The uterus is soft between very mild contractions which are occurringEvery 3 to 4 minutes. Pelvic: The cervix is closed its posterior its thick. The fetus is ballotable. It is not engaged in the pelvis. There is a category 1 EFM noted. - Procedures NST Procedure: NST Procedure Start Time 14:07 Stop Time 15:31 Findings: Impression: Intrauterine at 39 weeks 1 day gestation Early labor versus false labor Previous section - Plan Plan: Plan: We talked about options for either therapeutic rest or going home. She does it first wanted to go home but now she has decided that she would like to stay for therapeutic rest we therefore admit her to observation for therapeutic rest tonight and reevaluate in the a.m. or sooner if true signs of labor ensue.
[2018-10-06] MEDS ORDERED: MORPHINE 10 MG/ML VIAL IM ONE (23:50)
[2018-10-06] MEDS ORDERED: PROMETHAZINE 25 MG/1 ML VIAL IM ONE (23:50)
--- NOTE | 2018-10-07 | HISTORY & PHYSICAL EXAMINATION ---
Admit History - Visit Reason Visit Reason: Contractions (The patient came in tonight complaining of contractions that were painful as 8 out of 10. She denied any vaginal bleeding or fluid. She is at 39 weeks 1 day gestation. She has his section that is been scheduled for 10/09/2018.She states she has been shahrzad all day and they have worsened.) - : 3 Parity: 1 Premature: 0 Ectopic: 0 : 1 Care: positive: Shaquille Risk/History: positive: Previous Smoking Status: Current every day smoker - Mother's Labs Mother's Blood Type: positive: O Mother's RH: positive: Positive GBS: positive: Group B Step Negative Rubella Status: positive: Immune Meds/Allgy - Home Medications Home Medications: Ambulatory Orders Medication Instructions Recorded Confirmed Metoprolol Tartrate 25 mg PO BID #60 tablet 02/02/18 05/12/18 Meclizine HCl 25 mg PO Q6H PRN #20 tab.chew 05/12/18 Ondansetron Odt [Zofran] 4 mg TL Q6H PRN #10 tablet 05/12/18 - Allergies Allergies/Adverse Reactions: Allergies Allergy/AdvReac Type Severity Reaction Status Date / Time labetalol Allergy Unknown Verified 09/24/18 22:44 metoclopramide [From Reglan] Allergy Unknown Verified 06/26/18 21:37 IVP dye Allergy Unknown Uncoded 06/26/18 21:37 Review of Systems - Constitutional Constitutional: reports: Fatigue. denies: Fever, Chills - Eyes Eyes: denies: Pain, Irritation, Amaurosis, Blurred vision, Spots in vision - Ears, Nose & Throat Ears, Nose & Throat: denies: Ear pain, Hearing loss, Hearing aids, Tinnitus, Vertigo - Cardiovascular Cariovascular: denies: Irregular heart rate, Palpitations, Chest pain, Edema - Respiratory Respiratory: denies: Cough, Sputum production, Wheezing, Snoring, Hemoptysis - Gastrointestinal Gastrointestinal: denies: Abdominal pain, Abdominal distention, Constipation, Diarrhea, Change in bowel habits - Genitourinary Genitourinary: denies: Dysuria, Frequency, Urgency, Hematuria - Musculoskeletal Musculoskeletal: reports: Back pain. denies: Muscle pain, Muscle aches, Stiffness - Integumentary Integumentary: denies: Rash, Pruritis, Lesions - Neurological Neurological: denies: General weakness, Focal weakness, Headache, Dizziness - Psychiatric Psychiatric: denies: Depression, Anxiety, Suicidal - Endocrine Endocrine: denies: Polyuria, Polydypsia, Polyphagia, Intolerance to cold - Hematologic/Lymphatic Hematologic/Lymphatic: denies: Anemia, Bruising, Petechiae, Blood clots Physical - Abdominal Exam Vital Signs: Temp Pulse Resp BP Pulse Ox 36.7 C 87 16 129/85 H 100 10/06/18 22:25 10/06/18 23:12 10/06/18 23:12 10/06/18 23:12 10/06/18 23:12 Contraction Frequency (min/apart): 4 mn Contraction Intensity: positive: Mild Uterine Resting Tone: positive: Soft - Monitoring Strip Review: positive: Category I - Presentation Presentation: positive: Vertex (The fetus is ballotable) - Vaginal Exam Membranes: positive: Membranes intact Dilation (in cm): Closed Effacement (%): Thick Station: positive: -3 Cervical Position: positive: Posterior - Speculum Exam Speculum Exam Performed: positive: No - Other Notes Labor Progress Note/Additional Text: It is of note that though the patient complains of excruciating contractions when distracted from that she will talk in a regular voice without any mention of pain. Her complaints seem to be more than what is actually being demonstrated on her physical exam. Plan for Labor - Plan For Labor Plan for Labor: Impression intrauterine at 39 weeks 1 day gestation False labor versus early labor Previous section Plan: The patient was given the choice either to go home or to stay for therapeutic rest to see if anything would change with respect to labor. If first she was going to go home but then she decided she would stay for therapeutic rest. We will therefore admit her to observation for that.If true labor ensues then we willProceed with her section. If it does not we will then continue with our plan for her section on Saturday.
[2018-10-07 06:05] VITALS: BP 125/84
--- NOTE | 2018-10-07 06:07 | PROVIDER PROGRESS NOTE ---
Subjective - Prog Note Date Prog Note Date: 10/07/18 Prog Note Time: 06:05 - Subjective Pt reports feeling: Improved (The patient reports now that her contractions have spaced out to at least every 8 minutes. She does still denies any vaginal bleeding or fluid.) Objective - Vital Signs/Intake & Output Vital Signs: Vital Signs x48h Temp Pulse Resp BP BP Pulse Ox 10/07/18 05:56 36.4 C L 82 16 125/84 H 100 10/06/18 23:12 87 16 129/85 H 100 10/06/18 22:25 36.7 C 82 16 129/91 H 98 - Other Results/Comments Other Results/Comments: Pelvic exam: The cervix remains closed. The fetus is not engaged in the pelvis at all this morning. Assessment/Plan - Problem List (1) Impression: Intrauterine at 39 weeks 2 days gestation False labor Plan:The patient will be allowed to be discharged home. She has an appointment in the office this morning.She will remain on schedule for her repeat section tomorrow morning.She return to OB if signs of labor ensue.
== END 2018-10-07 06:30 | disposition home or self-care (01) ==
LOC: WFO 22:17 → FBP 22:18 → WFO 23:59 → FBP 10-07
PROVIDERS: ADMIT Obstetrics & Gynecology; ATTEND Obstetrics & Gynecology
DX: O47.1 False labor at or after 37 completed weeks of gestation (principal); O99.333 Smoking (tobacco) complicating pregnancy, third trimester; Z3A.39 39 weeks gestation of pregnancy; Z01.812 Encounter for preprocedural laboratory examination; O34.211 Maternal care for low transverse scar from previous cesarean delivery
CPT/HCPCS: 36415; 80048; 85025; 86850; 86900; 86901; 96372; 99213; G0378

== ENCOUNTER 2018-10-07 12:39 | Outpatient (CLI) | payer MEDICAID ==
[2018-10-07 12:59] LABS: BASOPHILS % (AUTO) 0.4 %; EOSINOPHILS # (AUTO) 0.3 10^3/uL (0.0-0.7); EOSINOPHILS % (AUTO) 2.5 %; HGB - HEMOGLOBIN 10.4 g/dL (12.0-16.0); LYMPHOCYTES # (AUTO) 1.7 10^3/uL (1.5-3.5); LYMPHOCYTES % (AUTO) 15.6 %; MEAN CORPUSCULAR HEMOGLOBIN 25.7 pg (27.0-31.0); MEAN CORPUSCULAR VOLUME 82.9 fL (81.0-99.0); MEAN PLATELET VOLUME 11.6 fL (7.9-10.8); MONOCYTES # (AUTO) 0.8 10^3/uL (0.0-1.0); MONOCYTES % (AUTO) 7.4 %; NEUTROPHILS % (AUTO) 73.4 %; PLT - PLATELET COUNT 283 10^3/uL (130-450); RED BLOOD COUNT 4.04 10^6/uL (4.20-5.40); RED CELL DISTRIBUTION WIDTH 13.8 % (12.0-15.0); WHITE BLOOD COUNT 10.9 x10^3/uL (4.8-10.8)
[2018-10-07 13:07] LABS: CALCIUM 7.9 mg/dL (8.5-10.3); CREATININE 0.6 mg/dL (0.4-1.0)
== END 2018-10-07 12:40 | disposition home or self-care (01) ==
LOC: LAB 12:39
PROVIDERS: ATTEND Obstetrics & Gynecology
DX: Z01.812 Encounter for preprocedural laboratory examination (principal); O34.211 Maternal care for low transverse scar from previous cesarean delivery
CPT/HCPCS: 36415; 80048; 85025; 86850; 86900; 86901

== ENCOUNTER 2018-10-08 04:53 | Inpatient (IN) | payer MEDICAID ==
[2018-10-08] MEDS ORDERED: SODIUM CHLORIDE FLUSH 0.9% 10 ML SYRINGE ONE ×2 (05:08→06:29)
[2018-10-08] MEDS ORDERED: CITRIC ACID/SODIUM CITRATE 15 ML UDC PO ONE (05:27)
[2018-10-08] MEDS ORDERED: SODIUM CHLORIDE FLUSH 0.9% 10 ML SYRINGE IVP PRN ×2 (05:28→09:32)
[2018-10-08] MEDS ORDERED: LACTATED RINGERS 1,000 ML IV SCH ×2 (06:00→10:00)
[2018-10-08] MEDS ORDERED: ceFAZolin 2 GM in SODIUM CHLORIDE 0.9% MINIBAG 100 ML IV SCH (06:00)
[2018-10-08] MEDS ORDERED: CARBOPROST TROMETHAMINE 250 MCG/ML AMP IM ONE (06:54)
[2018-10-08] MEDS ORDERED: miSOPROStol 200 MCG TABLET ONE (06:54)
[2018-10-08] MEDS ORDERED: METHYLERGONOVINE 0.2 MG/ML AMP ONE (06:55)
--- NOTE | 2018-10-08 07:01 | ANESTHESIA ---
Pre-Anesthesia VS, & Labs - Diagnosis previous c/s - Procedure repeat c/s Vital Signs: Temp Pulse Resp BP Pulse Ox 37 C 83 16 141/90 H 96 10/08/18 05:15 10/08/18 05:15 10/08/18 05:15 10/08/18 05:30 10/08/18 05:15 Height 5 ft 1 in Weight (kg) 92.079 kg Body Mass Index 37.0 - NPO >8 hours - Is Patient ?: Yes - Lab Results Lab results reviewed: Yes Home Medications and Allergies Active Medications Cefazolin Sodium 2 gm/ Sodium (Chloride) 100 mls @ 200 mls/hr IV ONCE ROXANE Stop: 10/08/18 18:00 Lactated Ringer's (Lr) 1,000 mls @ 125 mls/hr IV .Q8H ROXANE Sodium Chloride (Normal Saline Flush 0.9%) 10 ml IVP PRN PRN PRN Reason: NEEDED PER PROVIDER ORDERS Allergies/Adverse Reactions: Allergies Allergy/AdvReac Type Severity Reaction Status Date / Time labetalol Allergy Unknown Verified 09/24/18 22:44 metoclopramide [From Reglan] Allergy Unknown Verified 06/26/18 21:37 IVP dye Allergy Unknown Uncoded 06/26/18 21:37 Anes History & Medical History - Anesthetic History Anesthesia Complications: reports: No previous complications Family history of Anesthesia Complications: Denies Family history of Malignant Hyperthermia: Denies - Medical History Cardiovascular: reports: Hypertension, High cholesterol, Arrhythmia, Other Pulmonary: reports: None Gastrointestinal: reports: None Urinary: reports: Kidney stones, Other Neuro: reports: None Musculoskeletal: reports: None Endocrine/Autoimmune: reports: None Blood Disorders: reports: None Skin: reports: None Smoking Status: Current every day smoker - Surgical History General: Appendectomy Urologic: Kidney stents Gynecologic: section, Other Exam General: Alert, Oriented x3, Cooperative Dental: WNL, TMJ Mouth Openin Fingerbreadth Neck Mobility: Normal Mallampati classification: II Thyromental Distance: 4-6 cm Respiratory: Lungs clear, Normal breath sounds Cardiovascular: Regular rate Neurological: Normal speech Mental/Cognitive Status: Alert/Oriented X3 Plan Anesthesia Type: Spinal Regional Block: Per Surgeon's request for Post Op pain control Consent for Procedure(s) Verified and Reviewed: Yes Code Status: Attempt Resuscitation ASA classification: 2-Mild systemic disease Is this case an emergency?: No
[2018-10-08] MEDS ORDERED: ONDANSETRON 4 MG/2 ML VIAL IVP ONE (08:00)
[2018-10-08] MEDS ORDERED: NEOSTIGMINE 1 MG/1 ML 10 ML MDV IVP ONE (08:00)
[2018-10-08] MEDS ORDERED: PROPOFOL 200 MG/20 ML VIAL IVP ONE (08:00)
[2018-10-08] MEDS ORDERED: DEXAMETHASONE 4 MG/ML VIAL IVP ONE (08:00)
[2018-10-08] MEDS ORDERED: ROCURONIUM 50 MG/5 ML VIAL IVP ONE (08:00)
[2018-10-08] MEDS ORDERED: SUCCINYLCHOLINE 200 MG/10 ML VIAL IVP ONE (08:00)
[2018-10-08] MEDS ORDERED: OXYTOCIN 10 UNIT/ML VIAL IV ONE (08:00)
[2018-10-08] MEDS ORDERED: fentaNYL 100 MCG/2 ML VIAL IVP ONE (08:00)
[2018-10-08] MEDS ORDERED: GLYCOPYRROLATE 1 MG/5 ML VIAL IVP ONE (08:00)
[2018-10-08] MEDS ORDERED: MORPHINE PF 5 MG/10 ML AMP EP ONE (08:00)
[2018-10-08] MEDS: LACTATED RINGERS 1,000 ML IV ONE ×2 (08:41→09:11)
--- NOTE | 2018-10-08 09:24 | OPERATIVE REPORT ---
Operative Report - General Admit Date: 10/08/18 Procedure Date: 10/08/18 Planned Procedure: repeat LTC/S Pre-Op Diagnosis: 39 weeks, prior C/S Procedure Performed: repeat LTC/S Post Op Diagnosis: Same - Procedure Note Primary Surgeon: Rashid Faria MD Secondary Surgeon: Merlene Pate CNMW Anesthesia Provider: Jared Vickers CRNA Anesthesia Technique: General ET tube (Attempted Spinal with two providers) Pathology: Placenta IV Fluids (mL): 1,000 Estimated Blood Loss (mL): 600 Urine Output (mL): 200 Indications: repeat C/S Findings: Live Male Apgars 5/8/9, weight 6lb 11oz - Other Other Information/Narrative: Dictation # [id number]
[2018-10-08] MEDS ORDERED: ONDANSETRON 4 MG/2 ML VIAL IVP PRN (09:32)
[2018-10-08] MEDS ORDERED: diphenhydrAMINE 25 MG CAPSULE PO PRN (09:32)
[2018-10-08] MEDS ORDERED: OXYTOCIN/SODIUM CHLORIDE 500 ML IV PRN (09:32)
[2018-10-08] MEDS ORDERED: HYDROmorphone 1 MG/ML CARPUJECT ONE (09:43)
[2018-10-08] MEDS ORDERED: fentaNYL 100 MCG/2 ML VIAL ONE (09:43)
--- NOTE | 2018-10-08 10:01 | OPERATIVE REPORT ---
DATE OF SERVICE: 10/08/2018 Physician: Rashid Faria MD PREOPERATIVE DIAGNOSES 1. 39 weeks. 2. Previous section. POSTOPERATIVE DIAGNOSES 1. 39 weeks. 2. Previous section. PROCEDURE PERFORMED: Repeat low transverse section. SURGEON: Rashid Faria MD BUTTER PRINTER: LESLEY Sullivan. ANESTHESIA: Jared Vickers CRNA ANESTHETIC: Attempted spinal with general endotracheal. ESTIMATED BLOOD LOSS: 600 mL IV FLUIDS: 1000 mL URINE OUTPUT: 200 mL FINDINGS: Live male , Apgars 5, 8, and 9; weighing 6 pounds 11 ounces. Clear amniotic fluid. PROCEDURE: Following an attempt at a spinal anesthetic by two providers with multiple sticks, roughly 6, it was decided to proceed on to general anesthetic. The feeling was that the spine was probably rotated to the right. At this point, the patient had a Petersen catheter placed under sterile condition. She was then prepped and draped in the usual fashion. Following assurance of good endotracheal anesthesia, the procedure was commenced. A low Pfannenstiel incision was carried down through the subcutaneous tissue to the fascia. The fascia was incised transversely and then using both blunt and sharp dissection, it was freed from the rectus abdominis and pyramidalis. The peritoneum was entered high between the rectus, and the incision was carried superiorly and inferiorly. Care was taken to avoid any injury to bowel or bladder. At this point, the bladder flap was developed using both blunt and sharp dissection and a low transverse uterine incision was accomplished utilizing a #10 blade and bandage scissors. The amniotic membranes were then ruptured and noted to be clear fluid. The head of the infant was lifted out of the pelvis. The was delivered, the cord was doubly clamped and then the oropharynx was bulb suctioned. Roughly 6 minutes elapsed from the time anesthesia was started and the baby was delivered. The was handed to the nursery team that was standing by. Cord blood sample was clamped and set aside. Following this, cord blood was obtained. At this point, the placenta was manually delivered. The uterus was exteriorized, wrapped in a moist lap, and cleansed the internal portion with a dry lap. The edges of the incision were then grasped with ring forceps, and then the cervix was dilated with a ring forceps. Following ensuring that the uterus was empty, the uterine incision was closed using a running locking suture of 0 Vicryl with an imbricating layer of 0 Vicryl. Good hemostasis was observed. The cul-de-sac was then suctioned, and the estimated blood loss was made at that time. The cul-de-sac was irrigated, and then the uterus was delivered back in the abdominal cavity. The gutters likewise were irrigated. The incision was reinspected, and no bleeding was noted. The peritoneum was closed utilizing 2-0 Vicryl, and the rectus was reapproximated with 2-0 Vicryl. Following inspection of the rectus, no further bleeding was noted, so the fascia was closed using looped 0 PDS in a running suture. Subcutaneous tissue was noted to be hemostatic and then closed utilizing 0 Vicryl in a running suture. The incision itself was closed using 4- 0 Monocryl in a subcuticular stitch. The incision was then inspected, no bleeding. The Prevena wound VAC was placed following application of benzoin spray. There was evidence of a good seal. Patient tolerated the procedure well and was taken to recovery in stable condition. Sponge and needle counts were correct. TD: 10/08/2018 09:35 MTDD
[2018-10-08] MEDS: oxyCODONE 5 MG TABLET PO PRN ×3 (11:13→20:25)
--- NOTE | 2018-10-08 14:29 | ANESTHESIA POST OP EVALUATION ---
Anesthesia Post Eval - Post Anesthesia Eval CV Function Including HR & BP: positive: Stable Nausea & Vomiting: positive: Negative Mental Status: positive: Appropriate Anesthesia Complications: positive: Other (the patient had a sharp pain in her right buttocks at the time a spinal was attempted. the pain completely resolved until she moved in bed a certain way several hours after surgery. the patient could possibly have scoliosis or a herniated disc and she was instructed bed rest may help if she has a herniated disc. If the pain persists she may need to have the back pain further evaluated. I talked to DR Faria about the issue.)
[2018-10-08] MEDS: SODIUM CHLORIDE FLUSH 0.9% 10 ML SYRINGE IVP SCH ×3 (15:15→21:32)
[2018-10-08] MEDS: KETOROLAC 30 MG/ML VIAL IVP SCH ×3 (15:15→21:31)
[2018-10-08] MEDS: SIMETHICONE CHEW 80 MG TABLET PO SCH (15:15)
[2018-10-08] MEDS ORDERED: NICOTINE 7 MG PATCH TOP SCH (17:00)
[2018-10-08] MEDS: ACETAMINOPHEN 500 MG TABLET PO SCH ×2 (17:25→18:38)
[2018-10-08] MEDS: DOCUSATE SODIUM 100 MG CAPSULE PO SCH ×2 (18:37→20:25)
[2018-10-09] MEDS: oxyCODONE 5 MG TABLET PO PRN ×5 (00:44→22:54)
[2018-10-09] MEDS: ACETAMINOPHEN 500 MG TABLET PO SCH ×3 (01:19→20:17)
[2018-10-09] MEDS: SIMETHICONE CHEW 80 MG TABLET PO SCH ×4 (01:19→19:12)
[2018-10-09] MEDS: SODIUM CHLORIDE FLUSH 0.9% 10 ML SYRINGE IVP SCH (03:53)
[2018-10-09] MEDS: KETOROLAC 30 MG/ML VIAL IVP SCH (03:53)
[2018-10-09] MEDS ORDERED: CITRIC ACID/SODIUM CITRATE 15 ML UDC PO ONE (03:59)
[2018-10-09 05:57] LABS: BASOPHILS % (AUTO) 0.2 %; EOSINOPHILS # (AUTO) 0.2 10^3/uL (0.0-0.7); EOSINOPHILS % (AUTO) 1.7 %; HGB - HEMOGLOBIN 7.6 g/dL (12.0-16.0); LYMPHOCYTES # (AUTO) 2.2 10^3/uL (1.5-3.5); LYMPHOCYTES % (AUTO) 17.9 %; MEAN CORPUSCULAR HGB CONC 31.3 g/dL (32.0-36.0); MEAN CORPUSCULAR VOLUME 83.2 fL (81.0-99.0); MEAN PLATELET VOLUME 11.8 fL (7.9-10.8); MONOCYTES # (AUTO) 1.1 10^3/uL (0.0-1.0); MONOCYTES % (AUTO) 8.4 %; NEUTROPHILS # (AUTO) 8.8 10^3/uL (1.5-6.6); NEUTROPHILS % (AUTO) 70.8 %; PLT - PLATELET COUNT 212 10^3/uL (130-450); RED BLOOD COUNT 2.92 10^6/uL (4.20-5.40); RED CELL DISTRIBUTION WIDTH 13.8 % (12.0-15.0); WHITE BLOOD COUNT 12.5 x10^3/uL (4.8-10.8)
--- NOTE | 2018-10-09 09:01 | PROVIDER PROGRESS NOTE ---
Subjective - General Admit Date: 10/08/18 Procedure Date: 10/08/18 Post Op Days: 1 - Review of Systems Wound/Incisions: positive: Other (wound Vac functioning) General: positive: No symptoms (pain 04/10 voiding flatus) HEENT: positive: No symptoms Pulmonary: positive: No symptoms Cardiovascular: positive: No symptoms Gastrointestinal: positive: No symptoms Objective - Patient Data Reviewed Vital Signs: Yes Vital Signs: Vital Signs x48h Temp Pulse Resp BP BP Pulse Ox 10/09/18 08:12 37.2 C 88 18 135/86 H 99 10/09/18 05:20 37 C 80 16 125/82 H 10/09/18 01:00 36.4 C L 76 18 126/88 H 98 Weight: Weight 10/07/18 10/08/18 10/09/18 23:59 23:59 23:59 Weight (kg) 92.079 kg Intake & Output: Intake and Output Totals x24h 10/07/18 10/08/18 10/09/18 23:59 23:59 23:59 Intake Total 1100 Output Total 255 1650 Balance 845 -1650 - Lab Results Lab Results: 10/09/18 05:35 Other Lab Results: Lab Results x24hrs 10/09/18 Range/Units 05:35 WBC 12.5 H (4.8-10.8) x10^3/uL RBC 2.92 L (4.20-5.40) 10^6/uL Hgb 7.6 L (12.0-16.0) g/dL Hct 24.3 L (37.0-47.0) % MCV 83.2 (81.0-99.0) fL MCH 26.0 L (27.0-31.0) pg MCHC 31.3 L (32.0-36.0) g/dL RDW 13.8 (12.0-15.0) % Plt Count 212 (130-450) 10^3/uL MPV 11.8 H (7.9-10.8) fL Neut # (Auto) 8.8 H (1.5-6.6) 10^3/uL Lymph # (Auto) 2.2 (1.5-3.5) 10^3/uL [place] # (Auto) 1.1 H (0.0-1.0) 10^3/uL Eos # (Auto) 0.2 (0.0-0.7) 10^3/uL Baso # (Auto) 0.0 (0.0-0.1) 10^3/uL Absolute Nucleated RBC 0.00 x10^3/uL Nucleated RBC % 0.0 /100WBC - Current Medications Current Medications: Current Medications Generic Name Dose Route Start Last Admin Trade Name Freq PRN Reason Stop Dose Admin Acetaminophen 1,000 mg 10/08/18 10:00 10/09/18 01:19 Tylenol PO 1,000 mg Q8H ROXANE Administration Docusate Sodium 100 mg 10/08/18 10:30 10/08/18 20:25 Colace 100mg Capsule PO 100 mg BID ROXANE Administration Oxytocin/Sodium Chloride 500 mls @ 999 mls/hr 10/08/18 09:32 10/08/18 11:13 Pitocin/Sodium Chloride IV 10/09/18 09:31 999 milliunit/min PRN PRN 50 mls/hr POST- HEMORR PREVENTION Administration Protocol 999 MILLIUNIT/MIN Nicotine 1 patch 10/08/18 17:00 10/08/18 17:25 Nicoderm TOP 1 patch Q24H ROXANE Administration Oxycodone HCl 5 mg 10/08/18 09:32 10/09/18 06:49 Roxicodone PO 5 mg Q4HR PRN Administration PAIN Simethicone 80 mg 10/08/18 14:00 10/09/18 01:19 Mylicon PO 80 mg TID ROXANE Administration Sodium Chloride 10 ml 10/08/18 17:00 10/09/18 03:53 Normal Saline Flush 0.9% IVP 10 ml 0100,0900,1700 ROXANE Administration - Physical Exam Wound/Incisions: positive: Dressing dry and intact (wound Vac) General Appearance: positive: No acute distress (Pain scale 1/10), Alert Respiratory: positive: Chest non-tender, No respiratory distress, Breath sounds nml Cardiovascular: positive: Regular rate & rhythm, No murmur, No gallop Abdomen: positive: Non-tender, No organomegaly, Nml bowel sounds, No distention Back: negative: CVA tenderness (R), CVA tenderness (L) Extremities: negative: Calf tenderness, Pepito's sign/cords Neurologic/Psychiatric: positive: Oriented x3 Impression/Plan - Problem List Problem List: POD #1 progressing back pain improving
[2018-10-09] MEDS: DOCUSATE SODIUM 100 MG CAPSULE PO SCH ×2 (09:16→20:17)
[2018-10-09] MEDS: IBUPROFEN 600 MG TABLET PO SCH ×2 (14:17→19:12)
[2018-10-09] MEDS ORDERED: ALBUTEROL NEB 2.5 MG/3 ML INH PRN (20:25)
[2018-10-10] MEDS: IBUPROFEN 600 MG TABLET PO SCH ×3 (01:11→13:49)
[2018-10-10] MEDS: oxyCODONE 5 MG TABLET PO PRN ×3 (03:36→13:48)
[2018-10-10] MEDS: ACETAMINOPHEN 500 MG TABLET PO SCH ×2 (03:36→13:48)
[2018-10-10 04:00] VITALS: BP 129/84
[2018-10-10] MEDS: DOCUSATE SODIUM 100 MG CAPSULE PO SCH (08:15)
[2018-10-10] MEDS: SIMETHICONE CHEW 80 MG TABLET PO SCH ×2 (08:15→13:48)
--- NOTE | 2018-10-10 10:39 | PROVIDER PROGRESS NOTE ---
Subjective - General Admit Date: 10/08/18 Procedure Date: 10/08/18 Post Op Days: 2 Procedure Performed: repeat LTC/S - Review of Systems Wound/Incisions: positive: Dressing dry and intact (wound Vac working well) General: positive: No symptoms (pain / Notes adiquit pain control. voiding, flatus) HEENT: positive: No symptoms Pulmonary: positive: No symptoms Cardiovascular: positive: No symptoms Gastrointestinal: positive: No symptoms Genitourinary: positive: No symptoms Musculoskeletal: positive: No symptoms Psychiatric: positive: Anxiety (Pt has Hx of loosing mother after delivery of her first child.) Objective - Patient Data Reviewed Vital Signs: Yes Vital Signs: Vital Signs x48h Temp Pulse Resp BP Pulse Ox 10/10/18 08:52 36.3 C L 70 19 99 10/10/18 03:30 37.0 C 90 18 129/84 H 98 Weight: Weight 10/08/18 10/09/18 10/10/18 23:59 23:59 23:59 Weight (kg) 92.079 kg Intake & Output: Intake and Output Totals x24h 10/08/18 10/09/18 10/10/18 23:59 23:59 23:59 Intake Total 1100 970 860 Output Total 255 1650 Balance 845 -680 860 - Lab Results Lab Results: 10/09/18 05:35 - Current Medications Current Medications: Current Medications Generic Name Dose Route Start Last Admin Trade Name Freq PRN Reason Stop Dose Admin Acetaminophen 1,000 mg 10/08/18 10:00 10/10/18 03:36 Tylenol PO 1,000 mg Q8H ROXANE Administration Albuterol 2.5 mg 10/09/18 20:25 10/09/18 20:58 INH 2.5 mg RTQ4H PRN Administration Wheezing Docusate Sodium 100 mg 10/08/18 10:30 10/10/18 08:15 Colace 100mg Capsule PO 100 mg BID ROXANE Administration Ibuprofen 600 mg 10/09/18 10:00 10/10/18 06:48 Motrin PO 600 mg Q6H ROXANE Administration Nicotine 1 patch 10/08/18 17:00 10/08/18 17:25 Nicoderm TOP 1 patch Q24H ROXANE Administration Oxycodone HCl 5 mg 10/08/18 09:32 10/10/18 08:15 Roxicodone PO 5 mg Q4HR PRN Administration PAIN Simethicone 80 mg 10/08/18 14:00 10/10/18 08:15 Mylicon PO 80 mg TID ROXANE Administration Sodium Chloride 10 ml 10/08/18 17:00 10/09/18 03:53 Normal Saline Flush 0.9% IVP 10 ml 0100,0900,1700 ROXANE Administration - Physical Exam Wound/Incisions: positive: Dressing dry and intact General Appearance: positive: No acute distress, Alert Respiratory: positive: Chest non-tender, No respiratory distress, Breath sounds nml Cardiovascular: positive: Regular rate & rhythm, No murmur, No gallop Abdomen: positive: Non-tender, Nml bowel sounds, No distention, Mass (U-2) Skin: positive: Color nml, No rash, Warm, Dry Extremities: negative: Calf tenderness, Pepito's sign/cords Neurologic/Psychiatric: positive: Oriented x3 Impression/Plan - Problem List Problem List: POD # 2 S/P repeat LTC/S recovering well Anemia. anxious Plan Start on Iron. Discharge medications Oxycodone 5 mg # 20 Motrin 600 mg Colace 100 mg Iron 325 mg Pt offered to stay an additional day she wants to go home. will not start benzos as she is breast feeding RTC one week for wound Vac removal.
--- NOTE | 2018-10-10 10:47 | Discharge Plan ---
Discharge Plan Problem Reviewed?: Yes Disposition: Home, Self Care Condition: Good Diet: Regular Activity Restrictions: pelvic rest 6 weeks Shower Restrictions: No Driving Restrictions: Yes (not while taking Narcotics) No Smoking: If you smoke, Please STOP! Call for help.
--- NOTE | 2018-10-15 15:07 | PROVIDER PROGRESS NOTE ---
Subjective - Prog Note Date Prog Note Date: 10/08/18 Prog Note Time: 04:50 - Subjective Subjective: pt is here for C/Section. scheduled for AM. will preform as scheduled. Objective - Lab Results Fish Bones: 10/09/18 05:35
--- NOTE | 2018-10-15 15:28 | DISCHARGE SUMMARY ---
Physician: Rashid Faria MD DATE OF ADMISSION: 10/08/2018 DATE OF DISCHARGE: 10/10/2018 ADMITTING DIAGNOSES 1. A 39-week 1-day gestation. 2. Previous section. DISCHARGE DIAGNOSES 1. A 39-week 1-day gestation. 2. Previous section. PROCEDURE: Repeat low transverse section. PRESENTING HISTORY: The patient is a 22-year-old. She is G3, P1, AB1 female who is 39 weeks' gestat ional age. She was 39.1 weeks. She was scheduled for a on 10/08/2018. Course antenatally was complicated with discomfort of . She was wanting the done earlier, but this needed to be postponed to the appropriate time. Her labs showed her to be 0 positive. She was GBS negative, rubella immune. LABORATORY DATA: Preoperatively, her hemoglobin was 10.4. White count was 10.9. Platelets were 283 . Postoperatively, her white count simone to 12.5. Her hemoglobin fell to 7.6 and her platelets were 212. Chemistries: Her sodium was low at 133. Calcium was also mildly depressed at 7.9. HOSPITAL COURSE: The patient came early in the morning before surgery complaining of contractions. These stabilized out. She was allowed to rest and had her performed at the scheduled time. Her blood loss during surgery was low normal. Her postoperative course has been unremarkable. Her diet has been normal. She was taking regular medications at this time. She is being discharged to home with a wound VAC in place. She is instructed to follow up in the clinic in 1 week. DISCHARGE MEDICATIONS Those of: 1. Oxycodone 5 mg, #20. 2. Motrin 600 mg. 3. Colace 100 mg. 4. Iron 325 mg. TD: 10/15/2018 15:15
== END 2018-10-10 15:05 | disposition home or self-care (01) | DRG 788 ==
LOC: FBP 04:53
PROVIDERS: ADMIT Obstetrics & Gynecology; ATTEND Obstetrics & Gynecology
PROC: 10D00Z1 Extraction of Products of Conception, Low, Open Approach (ICD-10-PCS; principal; 2018-10-08 07:30)
DX: O34.211 Maternal care for low transverse scar from previous cesarean delivery (principal); N85.8 Other specified noninflammatory disorders of uterus; O99.334 Smoking (tobacco) complicating childbirth; Z37.0 Single live birth; O99.345 Other mental disorders complicating the puerperium; O90.81 Anemia of the puerperium; D64.9 Anemia, unspecified; F41.9 Anxiety disorder, unspecified; Z3A.39 39 weeks gestation of pregnancy
CPT/HCPCS: 36415; 85025; 94640; A9270; J0330; J1170; J7120

== ENCOUNTER 2018-12-16 20:09 | Emergency (ER) | payer MEDICAID ==
[2018-12-16] MEDS ORDERED: IBUPROFEN 800 MG TABLET PO STA (20:48)
--- NOTE | 2018-12-16 20:50 | ED Physician Documentation ---
PD HPI ABD PAIN - Stated complaint Stated Complaint: WOUND PAIN/NAUSEA - Chief complaint Chief Complaint: Abd Pain - History obtained from History obtained from: Patient - History of Present Illness Timing - onset: Other (She is about 2-1/2 months out from a . Over the last 2 weeks she developed increasing flank pain that started on the right and then moved to the left with mild hematuria and dysuria. Over the last day or so she is also had some pelvic pain which she feels is near her incision. No fevers.) Review of Systems Constitutional: denies: Fever, Chills GI: reports: Nausea. 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 : Kidney stones, Other HEENT: None Psych: None Musculoskeletal: None Derm: None - Past Surgical History Past Surgical History: Yes General: Appendectomy /STUDIO TECHNICIAN VIDEO OPERATOR: section, Other - Present Medications Home Medications: Ambulatory Orders Medication Instructions Recorded Confirmed RX: Metoprolol Tartrate 25 mg PO BID #60 tablet 02/02/18 05/12/18 Ondansetron Odt [Zofran] 4 mg TL Q6H PRN #10 tablet 05/12/18 RX: Meclizine HCl 25 mg PO Q6H PRN #20 tab.chew 05/12/18 RX: Cefpodoxime Proxetil 200 mg PO BID #20 tablet 12/16/18 - Allergies Allergies/Adverse Reactions: Allergies Allergy/AdvReac Type Severity Reaction Status Date / Time Iodinated Contrast Media Allergy Unknown Verified 12/16/18 20:14 labetalol Allergy Unknown Verified 12/16/18 20:14 metoclopramide [From Reglan] Allergy Unknown Verified 12/16/18 20:14 - Social History Does the pt smoke?: Yes Smoking Status: Current every day smoker Does the pt drink ETOH?: No Does the pt have substance abuse?: No - Immunizations Immunizations are current?: Yes - POLST Patient has POLST: No POLST Status: Full Code PD ED PE NORMAL - Vitals Vital signs reviewed: Yes - General General: Alert and oriented X 3, No acute distress - Abdomen Abdomen: Normal bowel sounds, Soft, Non tender, Other (Pfannenstiel incision looks fine without evidence of complication or infection.) - Back Back: No CVA TTP - Neuro Neuro: Alert and oriented X 3, Normal speech Results - Vitals Vitals: Vital Signs - 24 hr 12/16/18 12/16/18 20:14 21:56 Temperature 36.9 C Heart Rate 66 64 Respiratory 16 16 Rate Blood Pressure 127/99 H 124/88 H O2 Saturation 100 100 Oxygen O2 Source Room air - Labs Labs: Laboratory Tests 12/16/18 20:29 Urine Color RED/BLOODY Urine Clarity CLOUDY Urine pH 5.0 Ur Specific [place] 1.025 Urine Protein 100 H Urine Glucose (UA) NEGATIVE Urine Ketones NEGATIVE Urine Occult Blood LARGE H Urine Nitrite POSITIVE H Urine Bilirubin NEGATIVE Urine Urobilinogen 0.2 (NORMAL) Ur Leukocyte Esterase TRACE H Urine RBC TNTC H Urine WBC 11-25 H Ur Squamous Epith Cells RARE Squamous Urine Bacteria Moderate H Ur Microscopic Review INDICATED Urine Culture Comments INDICATED Urine HCG, Qual NEGATIVE PD MEDICAL DECISION MAKING - ED course ED course: Symptoms are most consistent with smoldering pyelonephritis. She was worried about a incision, however her abdominal examination is soft, the incision looks fine, and the time course would be very odd for this. Departure - Departure Disposition: 01 Home, Self Care Clinical Impression: Pyelonephritis Condition: Good Record reviewed to determine appropriate education?: Yes Instructions: Pyelonephritis Dc Prescriptions: RX: Cefpodoxime Proxetil 200 mg PO BID #20 tablet Comments: We will culture your urine, the results should be done in 48-72 hours. If an antibiotic change is necessary we will call you. Return if worse in the meantime, especially if you develop increasing flank pain, fevers, or cannot keep down the medication. Follow-up with your physician, next available appointment. Discharge Date/Time: 12/16/18 21:56
[2018-12-16 21:08] LABS: BILIRUBIN,URINE NEGATIVE (NEGATIVE); GLUCOSE, URINE (UA) NEGATIVE (NEGATIVE); KETONES,URINE (UA) NEGATIVE (NEGATIVE); LEUKOCYTE ESTERASE, URINE TRACE (NEGATIVE); NITRITE,URINE POSITIVE (NEGATIVE); OCCULT BLOOD,URINE LARGE (NEGATIVE); PROTEIN,URINE 100 mg/dL (NEGATIVE); UROBILINOGEN,URINE 0.2 (NORMAL) E.U./dL (NORMAL)
[2018-12-16 21:24] LABS: CLARITY,URINE CLOUDY (CLEAR); HCG UR QUAL NEGATIVE
[2018-12-16 21:30] LABS: BACTERIA,URINE Moderate /HPF (None Seen); RBC,URINE TNTC /HPF (0-5); SQUAMOUS EPITHELIAL CELL,UR RARE Squamous (<= Few)
[2018-12-16] MEDS ORDERED: CEFPODOXIME PROXETIL 100 MG TABLET PO STA (21:35)
[2018-12-16] MEDS ORDERED: HYDROcod/ACET 5/325 Prepack 4 PO STA (21:36)
[2018-12-16 21:57] VITALS: BP 124/88
== END 2018-12-16 21:56 | disposition home or self-care (01) ==
LOC: ED 20:09
DX: N12 Tubulo-interstitial nephritis, not specified as acute or chronic (principal); I10 Essential (primary) hypertension; F17.200 Nicotine dependence, unspecified, uncomplicated
CPT/HCPCS: 81001; 81025; 87086; 99283; A9270; 81003

== ENCOUNTER 2019-02-01 12:54 | Outpatient (CLI) | payer MEDICAID | END 2019-02-01 12:55 | disposition EMS.NT | LOC: EMS 12:54 | PROVIDERS: ATTEND Surgery | DX: S40.262A Insect bite (nonvenomous) of left shoulder, initial encounter (principal); W57.XXXA Bitten or stung by nonvenomous insect and other nonvenomous arthropods, initial encounter ==

== ENCOUNTER 2019-02-18 18:09 | Emergency (ER) | payer MEDICAID ==
[2019-02-18 18:43] VITALS: BP 127/65
== END 2019-02-18 19:30 | disposition left against medical advice (07) ==
LOC: ED 18:09
DX: Z53.21 Procedure and treatment not carried out due to patient leaving prior to being seen by health care provider (principal)
CPT/HCPCS: 80053; 83690; 85025; 93005

== ENCOUNTER 2019-02-19 19:45 | Outpatient (CLI) | payer MEDICAID | END 2019-02-19 19:46 | disposition critical access hospital (66) | LOC: EMS 19:45 | PROVIDERS: ATTEND Surgery | DX: R07.9 Chest pain, unspecified (principal); R11.2 Nausea with vomiting, unspecified; R30.9 Painful micturition, unspecified | CPT/HCPCS: A0425; A0427; A0999 ==

== ENCOUNTER 2019-02-19 20:04 | Emergency (ER) | payer MEDICAID ==
[2019-02-19 20:16] VITALS: BP 104/75
[2019-02-19] MEDS ORDERED: SODIUM CHLORIDE 0.9% 1,000 ML IV ONE (21:25)
[2019-02-19] MEDS ORDERED: KETOROLAC 30 MG/ML VIAL IVP STA (21:25)
--- NOTE | 2019-02-19 21:25 | ED Physician Documentation ---
History of Present Illness - Stated complaint Stated Complaint: N/V, CP - Chief complaint Chief Complaint: Cardiac - History obtained from History obtained from: Patient - History of Present Illness Timing: How many days ago (3) Pain level now: 7 - Additonal information Additional information: Is a 23-year-old woman who presents with complaints that she was here in the emergency department yesterday but left before being seen. She was having chest pain came back today approximately 2 hours prior to presentation while she was laying in bed with her kids so she called an ambulance. She said it is right between the breasts and up into the left chest into the left armpit and all the way down to the left fingers. Is "sharp and shooting". She is never had anything like this before. She did eat 2 burritos just an hour prior to the onset of pain. She does report a history of a lot of heartburn in the past. She is also have been having "bad kidney" pains for the past 3 days and 2 days ago she saw blood in the urine. She is having burning with urination and she has a history of kidney infections 3 times in the past. She is concerned that she could be even though she had a menstrual period a week and a half ago that lasted only 3 days which is abnormal for her. Tonight when she developed the chest pain she took her metoprolol that she regularly takes her SVT and 2 baby aspirins. She does report some vomiting yesterday but no diarrhea. She had a temperature 99.8 2 days ago. She is had a sore throat this morning. No stuffy nose. Denies any rash. She has not felt dizzy or passed out. She is status post appendectomy and 2 C-sections. She does not currently work outside the home. Review of Systems Constitutional: reports: Fever Ears: denies: Ear pain Nose: denies: Rhinorrhea / runny nose, Congestion Throat: reports: Sore throat Cardiac: reports: Chest pain / pressure Respiratory: denies: Cough GI: reports: Nausea, Vomiting. 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 : Kidney stones, Other HEENT: None Psych: None Musculoskeletal: None Derm: None - Past Surgical History Past Surgical History: Yes General: Appendectomy /PUBLIC SAFETY DIRECTOR: section, Other - Present Medications Home Medications: Ambulatory Orders Medication Instructions Recorded Confirmed Metoprolol Tartrate 25 mg PO BID #60 tablet 02/02/18 05/12/18 Meclizine HCl 25 mg PO Q6H PRN #20 tab.chew 05/12/18 Ondansetron Odt [Zofran] 4 mg TL Q6H PRN #10 tablet 05/12/18 Cefpodoxime Proxetil 200 mg PO BID #20 tablet 12/16/18 Doxycycline Hyclate 100 mg PO BID #20 capsule 02/19/19 - Allergies Allergies/Adverse Reactions: Allergies Allergy/AdvReac Type Severity Reaction Status Date / Time Iodinated Contrast Media Allergy Unknown Verified 02/19/19 20:06 labetalol Allergy Unknown Verified 02/19/19 20:06 metoclopramide [From Reglan] Allergy Unknown Verified 02/19/19 20:06 - Social History Does the pt smoke?: Yes Smoking Status: Current every day smoker Does the pt drink ETOH?: No Does the pt have substance abuse?: No - Immunizations Immunizations are current?: Yes - POLST Patient has POLST: No POLST Status: Full Code PD ED PE NORMAL - Vitals Vital signs reviewed: Yes - General General: Alert and oriented X 3, No acute distress, Well developed/nourished, Other (There are Cheetos crumbs across her upper chest) - HEENT HEENT: Atraumatic, PERRL, EOMI, Moist mucous membranes - Neck Neck: Supple, no meningeal sign - Cardiac Cardiac: RRR, No murmur, Other (She does have tenderness with palpation in the upper anterior chest wall bilaterally. No bruising is noted.) - Respiratory Respiratory: No respiratory distress, Clear bilaterally - Abdomen Abdomen: Normal bowel sounds, Soft, Non tender, Non distended - Back Back: No CVA TTP - Derm Derm: Normal color, Warm and dry, No rash - Extremities Extremities: No deformity - Neuro Neuro: Alert and oriented X 3, hydraulic mechanic 2-12 intact, No motor deficit, No sensory deficit, Normal speech Results - Vitals Vitals: Vital Signs - 24 hr 02/19/19 02/19/19 20:07 22:52 Temperature 36.8 C Heart Rate 63 57 L Respiratory 16 16 Rate Blood Pressure 104/75 O2 Saturation 99 99 Oxygen O2 Source Room air - EKG (time done) 2006 Rate: Rate (enter#) (62) Rhythm: NSR Intervals: Normal IN. No: Wide QRS Ischemia: Normal ST segments Compare to prior EKG: Old EKG unavailable - Labs Labs: Laboratory Tests 02/19/19 02/19/19 02/19/19 21:25 21:37 21:37 WBC 10.3 RBC 4.42 Hgb 12.0 Hct 38.2 MCV 86.4 MCH 27.1 MCHC 31.4 L RDW 13.7 Plt Count 234 MPV 10.6 Neut # (Auto) 7.0 H Lymph # (Auto) 2.1 [place] # (Auto) 0.6 Eos # (Auto) 0.4 Baso # (Auto) 0.0 Absolute Nucleated RBC 0.00 Nucleated RBC % 0.0 Sodium 137 Potassium 3.6 Chloride 106 Carbon Dioxide 25 Anion Gap 6.0 BUN 20 Creatinine 0.4 Estimated GFR (MDRD) 198 Glucose 116 H Calcium 8.1 L Total Bilirubin 0.3 AST < 10 L ALT 14 Alkaline Phosphatase 55 Total Protein 6.5 L Albumin 3.6 Globulin 2.9 Albumin/Globulin Ratio 1.2 Lipase 30 Urine Color YELLOW Urine Clarity HAZY Urine pH 7.0 Ur Specific [place] 1.020 Urine Protein NEGATIVE Urine Glucose (UA) NEGATIVE Urine Ketones NEGATIVE Urine Occult Blood TRACE-INTA Urine Nitrite NEGATIVE Urine Bilirubin NEGATIVE Urine Urobilinogen 0.2 (NORMAL) Ur Leukocyte Esterase LARGE H Urine RBC 0-5 Urine WBC 11-25 H Ur Squamous Epith Cells FEW Squamous Urine Bacteria Few Urine Trichomonas PRESENT H Ur Microscopic Review INDICATED Urine Culture Comments INDICATED Urine HCG, Qual NEGATIVE PD MEDICAL DECISION MAKING - ED course ED course: Urinalysis did show greater than 25 white blood cells and there was trichomonas present. I have added a GC and chlamydia on for that screening. We discussed treatment options and she is can be given 2 g of Flagyl orally. She was also given Rocephin 2 g IV. I am to treat her with doxycycline 100 mg twice daily to cover chlamydia and treatment for the urinary tract infection. She is instructed to drink lots of water. Use [id number] antacids as needed. Follow-up with her primary care provider to have her urine retested after finishing the antibiotics. Departure - Departure Disposition: 01 Home, Self Care Clinical Impression: Trichomonas infection UTI (urinary tract infection) Qualifiers: Urinary tract infection type: site unspecified Hematuria presence: without hematuria Qualified Code(s): N39.0 - Urinary tract infection, site not specified Abdominal pain Qualifiers: Abdominal location: epigastric Qualified Code(s): R10.13 - Epigastric pain Instructions: ED UTI Cystitis Female, ED Chlamydia GC Poss Culture Pend, ED Vaginitis Trichomonas Follow-Up: [facility] [Provider Group] Prescriptions: Doxycycline Hyclate 100 mg PO BID #20 capsule Comments: Take the doxycycline twice a day as prescribed. Be sure to drink plenty of water with it. You have been treated tonight for trichomonas which is a sexually transmitted disease and the gonorrhea and chlamydia results are pending. He should not have any sexual contact until after finishing the antibiotics to make sure the infection has been properly treated. Your partner needs to be notified so that they can be treated as well and you are not passing the infection back and forth. Use antacids if you are experiencing abdominal pain, heartburn or chest pain. Follow-up with your primary care provider to recheck the urine and make sure the infection has cleared after finishing the antibiotic.
[2019-02-19 21:41] LABS: BASOPHILS % (AUTO) 0.3 %; EOSINOPHILS # (AUTO) 0.4 10^3/uL (0.0-0.7); EOSINOPHILS % (AUTO) 4.3 %; LYMPHOCYTES # (AUTO) 2.1 10^3/uL (1.5-3.5); LYMPHOCYTES % (AUTO) 20.6 %; MEAN CORPUSCULAR HEMOGLOBIN 27.1 pg (27.0-31.0); MEAN CORPUSCULAR HGB CONC 31.4 g/dL (32.0-36.0); MEAN CORPUSCULAR VOLUME 86.4 fL (81.0-99.0); MEAN PLATELET VOLUME 10.6 fL (7.9-10.8); MONOCYTES # (AUTO) 0.6 10^3/uL (0.0-1.0); MONOCYTES % (AUTO) 6.2 %; NEUTROPHILS % (AUTO) 68.1 %; PLT - PLATELET COUNT 234 10^3/uL (130-450); RED BLOOD COUNT 4.42 10^6/uL (4.20-5.40); RED CELL DISTRIBUTION WIDTH 13.7 % (12.0-15.0); WHITE BLOOD COUNT 10.3 x10^3/uL (4.8-10.8)
[2019-02-19 21:42] LABS: BILIRUBIN,URINE NEGATIVE (NEGATIVE); GLUCOSE, URINE (UA) NEGATIVE (NEGATIVE); KETONES,URINE (UA) NEGATIVE (NEGATIVE); LEUKOCYTE ESTERASE, URINE LARGE (NEGATIVE); NITRITE,URINE NEGATIVE (NEGATIVE); OCCULT BLOOD,URINE TRACE-INTA (NEGATIVE); PROTEIN,URINE NEGATIVE (NEGATIVE); UROBILINOGEN,URINE 0.2 (NORMAL) E.U./dL (NORMAL)
[2019-02-19 21:44] LABS: CLARITY,URINE HAZY (CLEAR); HCG UR QUAL NEGATIVE
[2019-02-19 21:51] LABS: RBC,URINE 0-5 /HPF (0-5)
[2019-02-19 21:52] LABS: BACTERIA,URINE Few /HPF (None Seen); SQUAMOUS EPITHELIAL CELL,UR FEW Squamous (<= Few); TRICHOMONAS,URINE PRESENT (None Seen)
[2019-02-19 22:00] LABS: ALBUMIN 3.6 g/dL (3.2-5.5); ALBUMIN/GLOBULIN RATIO 1.2 (1.0-2.2); ALKALINE PHOSPHATASE 55 IU/L (42-121); ALT ALANINE AMINOTRANSFERASE 14 IU/L (10-60); AST ASPARTATE AMINOTRANSFERASE < 10 IU/L (10-42); BILIRUBIN,TOTAL 0.3 mg/dL (0.2-1.0); BUN - BLOOD UREA NITROGEN 20 mg/dL (6-20); CALCIUM 8.1 mg/dL (8.5-10.3); CARBON DIOXIDE - CO2 25 mmol/L (21-32); CHLORIDE 106 mmol/L (101-111); CREATININE 0.4 mg/dL (0.4-1.0); GFR - MDRD 198 (>89); GLUCOSE 116 mg/dL (70-100); LIPASE 30 U/L (22-51); SODIUM 137 mmol/L (135-145); TOTAL PROTEIN 6.5 g/dL (6.7-8.2)
[2019-02-19] MEDS ORDERED: cefTRIAXone 2 GM in SODIUM CHLORIDE 0.9% MINIBAG 100 ML IV STA (22:39)
[2019-02-19] MEDS ORDERED: LIDOCAINE VISCOUS 2% 15 ML UDC MM STA (23:18)
[2019-02-19] MEDS ORDERED: MAG HYDROX/AL HYDROX/SIMETH 30 ML UDC PO STA (23:18)
[2019-02-19] MEDS ORDERED: metroNIDAZOLE 250 MG TABLET PO STA (23:19)
[2019-02-20 19:04] LABS: TRICHOMONAS VAGINALIS DNA POSITIVE (NEGATIVE)
== END 2019-02-19 23:58 | disposition home or self-care (01) ==
LOC: EDUNIT# → ED 20:04
DX: A59.01 Trichomonal vulvovaginitis (principal); N39.0 Urinary tract infection, site not specified; R10.13 Epigastric pain; R07.9 Chest pain, unspecified; I10 Essential (primary) hypertension; F17.200 Nicotine dependence, unspecified, uncomplicated
CPT/HCPCS: 36415; 80053; 81001; 81025; 83690; 85025; 87086; 87491; 87591; 87661; 93005; 99284; A9270; 81003

== ENCOUNTER 2019-03-15 03:15 | Emergency (ER) | payer MEDICAID ==
--- NOTE | 2019-03-15 03:27 | ED Physician Documentation ---
PD HPI ABD PAIN - Stated complaint Stated Complaint: ABD PX/VOMITING - Chief complaint Chief Complaint: Abd Pain - History obtained from History obtained from: Patient - History of Present Illness Timing - onset: Other (vomiting x 4 hours, RUQ / right flank pain x 90 minutes) Timing - details: Abrupt onset, Waxing and waning Pain level now: 8 Quality: Pain Location: RUQ Radiation: Right flank Improved by: Other (no ameliorating factors) Worsened by: Other (no exacerbating factors) Associated symptoms: Nausea, Vomiting. No: Fever Similar symptoms before: Diagnosis (symptoms have some similarities to both previous kidney infections as well as renal colic) Recently seen: Emergency Dept (3 weeks ago for unrelated c/o) - Additional information Additional information: c/o nausea, vomiting x 4 hours unrelieved with PO zofran. She then developed RUQ and right flank pain 90 minutes ago that she feels is similar to previous episodes of kidney infections as well as renal colic. Review of Systems Constitutional: denies: Fever, Chills, Sweats Cardiac: reports: Reviewed and negative Respiratory: reports: Reviewed and negative GI: reports: Abdominal Pain, Nausea, Vomiting. denies: Constipation, Diarrhea : denies: Dysuria, Frequency, Now EGA Skin: denies: Rash Musculoskeletal: reports: Back pain PD PAST MEDICAL HISTORY - Past Medical History Cardiovascular: Hypertension, High cholesterol, Arrhythmia, Other Respiratory: None Neuro: None Endocrine/Autoimmune: None GI: None CLEANING MANAGER: None : Kidney stones, Other HEENT: None Psych: None Musculoskeletal: None Derm: None - Past Surgical History Past Surgical History: Yes General: Appendectomy /CLEANING MANAGER: section, Other - Present Medications Home Medications: Ambulatory Orders Medication Instructions Recorded Confirmed Metoprolol Tartrate 25 mg PO BID #60 tablet 02/02/18 05/12/18 Meclizine HCl 25 mg PO Q6H PRN #20 tab.chew 05/12/18 Ondansetron Odt [Zofran] 4 mg TL Q6H PRN #10 tablet 05/12/18 Cefpodoxime Proxetil 200 mg PO BID #20 tablet 12/16/18 Doxycycline Hyclate 100 mg PO BID #20 capsule 02/19/19 Hydrocodone/Acetaminophen 1 - 2 each PO Q6H PRN #14 tablet 03/15/19 [Hydrocodon-Acetaminophen 5-325] Ketorolac [Toradol] 10 mg PO Q6H #19 tablet 03/15/19 - Allergies Allergies/Adverse Reactions: Allergies Allergy/AdvReac Type Severity Reaction Status Date / Time Iodinated Contrast Media Allergy Unknown Verified 03/15/19 04:49 labetalol Allergy Unknown Verified 03/15/19 04:49 metoclopramide [From Reglan] Allergy Unknown Verified 03/15/19 04:49 - Social History Does the pt smoke?: Yes Smoking Status: Current every day smoker Does the pt drink ETOH?: No Does the pt have substance abuse?: No - Immunizations Immunizations are current?: Yes - POLST Patient has POLST: No POLST Status: Full Code PD ED PE NORMAL - Vitals Vital signs reviewed: Yes - General General: Alert and oriented X 3, Well developed/nourished, Other (appears uncomfortable) - HEENT HEENT: Moist mucous membranes - Neck Neck: Supple, no meningeal sign - Cardiac Cardiac: No murmur - Respiratory Respiratory: No respiratory distress, Clear bilaterally - Abdomen Abdomen: Soft, Non distended, Other (mild RUQ tenderness without rebound or guarding) - Back Back: Other (mild right CVA tenderness) - Derm Derm: Normal color, Warm and dry, No rash PD ED PE EXPANDED - Cardiac Cardiac: Tachy Results - Vitals Vitals: Vital Signs - 24 hr 03/15/19 03/15/19 03:23 05:49 Temperature 37.4 C 36.9 C Heart Rate 104 H 75 Respiratory 22 18 Rate Blood Pressure 122/87 H 104/68 O2 Saturation 98 96 Oxygen O2 Source Room air - Labs Labs: Laboratory Tests 03/15/19 03/15/19 03/15/19 03:30 03:30 03:30 WBC 13.6 H RBC 4.97 Hgb 13.9 Hct 43.3 MCV 87.1 MCH 28.0 MCHC 32.1 RDW 13.3 Plt Count 270 MPV 10.3 Neut # (Auto) 10.7 H Lymph # (Auto) 1.5 [place] # (Auto) 0.9 Eos # (Auto) 0.4 Baso # (Auto) 0.1 Absolute Nucleated RBC 0.00 Nucleated RBC % 0.0 Sodium 139 Potassium 3.8 Chloride 106 Carbon Dioxide 24 Anion Gap 9.0 BUN 19 Creatinine 0.6 Estimated GFR (MDRD) 124 Glucose 96 Calcium 8.6 Total Bilirubin 0.7 AST 12 ALT 19 Alkaline Phosphatase 54 Total Protein 7.4 Albumin 4.2 Globulin 3.2 Albumin/Globulin Ratio 1.3 Lipase 23 HCG, Quant < 0.60 Urine Color Urine Clarity Urine pH Ur Specific [place] Urine Protein Urine Glucose (UA) Urine Ketones Urine Occult Blood Urine Nitrite Urine Bilirubin Urine Urobilinogen Ur Leukocyte Esterase Ur Microscopic Review Urine Culture Comments 03/15/19 03:55 WBC RBC Hgb Hct MCV MCH MCHC RDW Plt Count MPV Neut # (Auto) Lymph # (Auto) [place] # (Auto) Eos # (Auto) Baso # (Auto) Absolute Nucleated RBC Nucleated RBC % Sodium Potassium Chloride Carbon Dioxide Anion Gap BUN Creatinine Estimated GFR (MDRD) Glucose Calcium Total Bilirubin AST ALT Alkaline Phosphatase Total Protein Albumin Globulin Albumin/Globulin Ratio Lipase HCG, Quant Urine Color YELLOW Urine Clarity CLEAR Urine pH 6.0 Ur Specific [place] 1.020 Urine Protein NEGATIVE Urine Glucose (UA) NEGATIVE Urine Ketones NEGATIVE Urine Occult Blood TRACE-INTA Urine Nitrite NEGATIVE Urine Bilirubin NEGATIVE Urine Urobilinogen 0.2 (NORMAL) Ur Leukocyte Esterase NEGATIVE Ur Microscopic Review NOT INDICATED Urine Culture Comments NOT INDICATED - Rads (name of study) CT A/P Radiology: Prelim report reviewed, See rad report PD MEDICAL DECISION MAKING - ED course Complexity details: reviewed results, re-evaluated patient, considered differential, d/w patient ED course: mild leukocytosis but otherwise unremarkable blood tests; trace blood on UA result but not s/o infectious process, and CT A/P also unremarkable. she reported good symptomatic relief with IV fluids, zofran, IV toradol and 2mg IV morphine . Results discussed and patient is comfortable with d/c home. Departure - Departure Disposition: 01 Home, Self Care Clinical Impression: Abdominal pain Qualifiers: Abdominal location: right upper quadrant Qualified Code(s): R10.11 - Right upper quadrant pain Condition: Good Instructions: ED Abdominal Pain Unkn Cause Prescriptions: Hydrocodone/Acetaminophen [Hydrocodon-Acetaminophen 5-325] 1 - 2 each PO Q6H PRN #14 tablet PRN Reason: pain Ketorolac [Toradol] 10 mg PO Q6H #19 tablet Discharge Date/Time: 03/15/19 05:50
[2019-03-15] MEDS ORDERED: ONDANSETRON 4 MG/2 ML VIAL IVP STA (03:46)
[2019-03-15] MEDS ORDERED: MORPHINE 2 MG/ML CARPUJECT IVP STA (03:46)
[2019-03-15] MEDS ORDERED: SODIUM CHLORIDE 0.9% 1,000 ML IV STA (03:46)
[2019-03-15 03:47] LABS: BASOPHILS # (AUTO) 0.1 10^3/uL (0.0-0.1); BASOPHILS % (AUTO) 0.4 %; EOSINOPHILS # (AUTO) 0.4 10^3/uL (0.0-0.7); EOSINOPHILS % (AUTO) 2.6 %; HGB - HEMOGLOBIN 13.9 g/dL (12.0-16.0); LYMPHOCYTES # (AUTO) 1.5 10^3/uL (1.5-3.5); LYMPHOCYTES % (AUTO) 10.8 %; MEAN CORPUSCULAR HGB CONC 32.1 g/dL (32.0-36.0); MEAN CORPUSCULAR VOLUME 87.1 fL (81.0-99.0); MEAN PLATELET VOLUME 10.3 fL (7.9-10.8); MONOCYTES # (AUTO) 0.9 10^3/uL (0.0-1.0); MONOCYTES % (AUTO) 6.9 %; NEUTROPHILS # (AUTO) 10.7 10^3/uL (1.5-6.6); NEUTROPHILS % (AUTO) 78.9 %; PLT - PLATELET COUNT 270 10^3/uL (130-450); RED BLOOD COUNT 4.97 10^6/uL (4.20-5.40); RED CELL DISTRIBUTION WIDTH 13.3 % (12.0-15.0); WHITE BLOOD COUNT 13.6 x10^3/uL (4.8-10.8)
[2019-03-15 03:57] LABS: ALBUMIN 4.2 g/dL (3.2-5.5); ALBUMIN/GLOBULIN RATIO 1.3 (1.0-2.2); BILIRUBIN,TOTAL 0.7 mg/dL (0.2-1.0); CALCIUM 8.6 mg/dL (8.5-10.3); CREATININE 0.6 mg/dL (0.4-1.0); TOTAL PROTEIN 7.4 g/dL (6.7-8.2)
[2019-03-15 04:00] LABS: BILIRUBIN,URINE NEGATIVE (NEGATIVE); GLUCOSE, URINE (UA) NEGATIVE (NEGATIVE); KETONES,URINE (UA) NEGATIVE (NEGATIVE); LEUKOCYTE ESTERASE, URINE NEGATIVE (NEGATIVE); NITRITE,URINE NEGATIVE (NEGATIVE); OCCULT BLOOD,URINE TRACE-INTA (NEGATIVE); PROTEIN,URINE NEGATIVE (NEGATIVE); UROBILINOGEN,URINE 0.2 (NORMAL) E.U./dL (NORMAL)
[2019-03-15 04:01] LABS: CLARITY,URINE CLEAR (CLEAR)
[2019-03-15] MEDS ORDERED: KETOROLAC 30 MG/ML VIAL IVP STA (04:35)
--- NOTE | 2019-03-15 05:26 | CT Report ---
Reason: right flank pain Procedure Date: 03/15/2019 Accession Number: [id number] / [id number] Procedure: CT - Abdomen/Pelvis WO CPT Code: Final Report FULL RESULT: EXAM: CT ABDOMEN AND PELVIS (CT KUB) EXAM DATE: 03/15/2019 05:09 AM. CLINICAL HISTORY: Right flank pain. COMPARISONS: ABDOMEN/PELVIS W/O 12/24/2017 10:04 AM. TECHNIQUE: Routine axial helical CT imaging was performed through the abdomen and pelvis without IV contrast. Reconstructions: Coronal and sagittal. In accordance with CT protocol optimization, one or more of the following dose reduction techniques were utilized for this exam: automated exposure control, adjustment of mA and/or KV based on patient size, or use of iterative reconstructive technique. FINDINGS: Lung Bases: Unremarkable. Right Kidney/Ureter: No stones, hydronephrosis, or hydroureter. No perinephric fat stranding. Left Kidney/Ureter: No stones, hydronephrosis, or hydroureter. No perinephric fat stranding. Other Solid Organs: Noncontrast images of the solid organs are grossly unremarkable. Gallbladder/Bile Ducts: Unremarkable. Peritoneal Cavity: No free fluid, free air or chandler adenopathy. Bowel is grossly unremarkable. The appendix has been resected. Pelvic Organs: No bladder stones or wall thickening. Noncontrast images of the visualized pelvic organs are unremarkable. Vasculature: Unremarkable. Other: None. IMPRESSION: No urinary tract stones or obstruction. No findings to explain clinical symptoms. RADIA
[2019-03-15] MEDS ORDERED: HYDROcod/ACETAM 5/325 MG TABLET PO STA (05:43)
[2019-03-15 05:50] VITALS: BP 104/68
== END 2019-03-15 05:50 | disposition home or self-care (01) ==
LOC: ED 03:15
DX: R10.11 Right upper quadrant pain (principal); R11.2 Nausea with vomiting, unspecified; I10 Essential (primary) hypertension; F17.200 Nicotine dependence, unspecified, uncomplicated
CPT/HCPCS: 36415; 74176; 80053; 81003; 83690; 84702; 85025; 96361; 96374; 96375; 99284; A9270; 81001; 87086

== ENCOUNTER 2019-04-01 19:13 | Emergency (ER) | payer MEDICAID ==
[2019-04-01 19:47] LABS: BILIRUBIN,URINE NEGATIVE (NEGATIVE); GLUCOSE, URINE (UA) NEGATIVE (NEGATIVE); KETONES,URINE (UA) TRACE mg/dL (NEGATIVE); LEUKOCYTE ESTERASE, URINE TRACE (NEGATIVE); NITRITE,URINE NEGATIVE (NEGATIVE); OCCULT BLOOD,URINE NEGATIVE (NEGATIVE); PROTEIN,URINE NEGATIVE (NEGATIVE); UROBILINOGEN,URINE 0.2 (NORMAL) E.U./dL (NORMAL)
[2019-04-01 19:48] LABS: CLARITY,URINE CLEAR (CLEAR)
[2019-04-01 19:50] LABS: HCG UR QUAL NEGATIVE
[2019-04-01 19:56] LABS: BACTERIA,URINE Rare /HPF (None Seen); RBC,URINE None Seen /HPF (0-5); SQUAMOUS EPITHELIAL CELL,UR MOD Squamous (<= Few)
[2019-04-01] MEDS ORDERED: PHENAZOPYRIDINE 100 MG TABLET PO STA (20:06)
[2019-04-01] MEDS ORDERED: SULFAMETH/TRIMETH DS 800/160 MG TABLET PO STA (20:06)
--- NOTE | 2019-04-01 20:08 | ED Physician Documentation ---
PD HPI FEMALE - Stated complaint Stated Complaint: FEMALE , FEVER - Chief complaint Chief Complaint: UTI - History obtained from History obtained from: Patient - History of Present Illness Timing - onset: Today Timing - details: Abrupt onset Associated symptoms: Fever, Abdominal pain, Back pain, Dysuria, Urinary frequency. No: Vaginal bleeding, Vaginal discharge Contributing factors: Sexually active. No: , control Similar symptoms before: Diagnosis - Additional information Additional information: This is a 23-year-old woman who presents with complaints that she started having burning and sharp pains with urination this morning when she was urinating. Now she is developed in bilateral lower back pain, abdominal pain and was incontinent 3 times tonight. She complains of nausea but no vomiting she took Zofran just prior to arrival. Reports a fever 102 degrees for which she took Tylenol 2 hours ago. The patient has a history of urinary tract infections and kidney infections. She denies using any control and says her last menstrual period was January 24 and is not sure whether or not she could be . She was recently treated for STDs and does not have any concerns for those currently. She does report some coughing. Review of Systems Constitutional: reports: Fever Respiratory: reports: Cough GI: reports: Abdominal Pain, Nausea. denies: Vomiting, Diarrhea : reports: Dysuria, Frequency, Incontinent, LMP (Jan 24). 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 : Kidney stones, Other HEENT: None Psych: None Musculoskeletal: None Derm: None - Past Surgical History Past Surgical History: Yes General: Appendectomy /POSTAGE MACHINE OPERATOR: section, Other - Present Medications Home Medications: Ambulatory Orders Medication Instructions Recorded Confirmed Metoprolol Tartrate 25 mg PO BID #60 tablet 02/02/18 05/12/18 Meclizine HCl 25 mg PO Q6H PRN #20 tab.chew 05/12/18 Ondansetron Odt [Zofran] 4 mg TL Q6H PRN #10 tablet 05/12/18 Cefpodoxime Proxetil 200 mg PO BID #20 tablet 12/16/18 Doxycycline Hyclate 100 mg PO BID #20 capsule 02/19/19 Hydrocodone/Acetaminophen 1 - 2 each PO Q6H PRN #14 tablet 03/15/19 [Hydrocodon-Acetaminophen 5-325] Ketorolac [Toradol] 10 mg PO Q6H #19 tablet 03/15/19 Phenazopyridine HCl 100 mg PO TID PRN #6 tablet 04/01/19 Sulfamethox/Trimeth 800/160 1 each PO BID #14 tablet 04/01/19 [Bactrim Ds 800/160] - Allergies Allergies/Adverse Reactions: Allergies Allergy/AdvReac Type Severity Reaction Status Date / Time Iodinated Contrast Media Allergy Unknown Verified 04/01/19 19:17 labetalol Allergy Unknown Verified 04/01/19 19:17 metoclopramide [From Reglan] Allergy Unknown Verified 04/01/19 19:17 - Social History Does the pt smoke?: Yes Smoking Status: Current every day smoker Does the pt drink ETOH?: No Does the pt have substance abuse?: No - Immunizations Immunizations are current?: Yes - POLST Patient has POLST: No POLST Status: Full Code PD ED PE NORMAL - Vitals Vital signs reviewed: Yes - General General: Alert and oriented X 3, No acute distress, Well developed/nourished - HEENT HEENT: Atraumatic, PERRL, Moist mucous membranes, Other (No scleral icterus) - Neck Neck: No adenopathy - Cardiac Cardiac: RRR, No murmur - Respiratory Respiratory: No respiratory distress, Clear bilaterally - Abdomen Abdomen: Normal bowel sounds, Soft, Non tender, Non distended - Derm Derm: Normal color, Warm and dry - Neuro Neuro: Alert and oriented X 3, Normal speech - Psych Psych: Normal mood, Normal affect Results - Vitals Vitals: Vital Signs - 24 hr 04/01/19 19:17 Temperature 37.7 C H Heart Rate 107 H Respiratory 20 Rate Blood Pressure 108/79 O2 Saturation 98 Oxygen O2 Source Room air - Labs Labs: Laboratory Tests 04/01/19 04/01/19 19:40 19:40 Urine Color YELLOW Urine Clarity CLEAR Urine pH 6.0 Ur Specific [place] >=1.030 H >=1.030 H Urine Protein NEGATIVE Urine Glucose (UA) NEGATIVE Urine Ketones TRACE Urine Occult Blood NEGATIVE Urine Nitrite NEGATIVE Urine Bilirubin NEGATIVE Urine Urobilinogen 0.2 (NORMAL) Ur Leukocyte Esterase TRACE H Urine RBC None Seen Urine WBC 6-10 H Ur Squamous Epith Cells MOD Squamous H Urine Bacteria Rare Ur Microscopic Review INDICATED Urine Culture Comments NOT INDICATED Urine HCG, Qual NEGATIVE PD MEDICAL DECISION MAKING - ED course Complexity details: reviewed results, d/w patient ED course: Patient was given Bactrim and Pyridium here in the emergency department. She is encouraged to drink lots of water her urine is very concentrated. She is not . Should be treated with Bactrim and prescription for Pyridium follow- up if not improving. Departure - Departure Disposition: 01 Home, Self Care Clinical Impression: UTI (urinary tract infection) Qualifiers: Urinary tract infection type: site unspecified Hematuria presence: without hematuria Qualified Code(s): N39.0 - Urinary tract infection, site not specified Condition: Good Instructions: ED UTI Cystitis Female Follow-Up: [facility] [Provider Group] Prescriptions: Phenazopyridine HCl 100 mg PO TID PRN #6 tablet PRN Reason: Bladder Spasms Sulfamethox/Trimeth 800/160 [Bactrim Ds 800/160] 1 each PO BID #14 tablet Comments: Drink at least ten 8 ounce glasses of water a day. May take your Toradol if needed for pain. Take the Bactrim twice a day with plenty of water. Use the Pyridium up to 3 times a day as needed for pain when urinating. This will turn her urine bright orange and you should not wear contact lenses if you are taking it. Have the urine rechecked with your primary care physician after finishing the antibiotics to make sure the infection has been cleared. Return if you have increasing pain, fever that does not respond to Tylenol or ibuprofen, vomiting and cannot keep anything down or other problems arise.
[2019-04-01 20:22] VITALS: BP 110/80
== END 2019-04-01 20:21 | disposition home or self-care (01) ==
LOC: ED 19:13
DX: N39.0 Urinary tract infection, site not specified (principal); I10 Essential (primary) hypertension; F17.200 Nicotine dependence, unspecified, uncomplicated
CPT/HCPCS: 81001; 81025; 99283; 99284; A9270; 81003; 87086

== ENCOUNTER 2019-05-05 20:00 | Emergency (ER) | payer MEDICAID ==
[2019-05-05 20:07] VITALS: BP 117/78
--- NOTE | 2019-05-05 20:21 | ED Physician Documentation ---
PD HPI FEMALE - Stated complaint Stated Complaint: CRAMPING - Chief complaint Chief Complaint: Abd Pain - History obtained from History obtained from: Patient - History of Present Illness Timing - onset: Today Timing - duration: Days (1) Timing - details: Gradual onset Pain level max: 3 Pain level max: 2 Associated symptoms: Vaginal discharge (milky, foul smelling). 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: G (4), P (2) Recently seen: Not recently seen Review of Systems Constitutional: denies: Fever, Chills GI: denies: Vomiting, Diarrhea : denies: Dysuria, Frequency, Hesitancy Skin: denies: Rash Musculoskeletal: denies: Neck pain, Back pain PD PAST MEDICAL HISTORY - Past Medical History Past Medical History: Yes Cardiovascular: Hypertension, High cholesterol, Arrhythmia, Other Respiratory: None Neuro: None Endocrine/Autoimmune: None GI: None HEEL STAINER: None : Kidney stones, Other HEENT: None Psych: None Musculoskeletal: None Derm: None - Past Surgical History Past Surgical History: Yes General: Appendectomy /HEEL STAINER: section, Other - Present Medications Home Medications: Ambulatory Orders Medication Instructions Recorded Confirmed Metoprolol Tartrate 25 mg PO BID #60 tablet 02/02/18 05/12/18 Meclizine HCl 25 mg PO Q6H PRN #20 tab.chew 05/12/18 Ondansetron Odt [Zofran] 4 mg TL Q6H PRN #10 tablet 05/12/18 Cefpodoxime Proxetil 200 mg PO BID #20 tablet 12/16/18 Doxycycline Hyclate 100 mg PO BID #20 capsule 02/19/19 Hydrocodone/Acetaminophen 1 - 2 each PO Q6H PRN #14 tablet 03/15/19 [Hydrocodon-Acetaminophen 5-325] Ketorolac [Toradol] 10 mg PO Q6H #19 tablet 03/15/19 Phenazopyridine HCl 100 mg PO TID PRN #6 tablet 04/01/19 Sulfamethox/Trimeth 800/160 1 each PO BID #14 tablet 04/01/19 [Bactrim Ds 800/160] Metronidazole [Flagyl] 500 mg PO BID #14 tablet 05/05/19 - Allergies Allergies/Adverse Reactions: Allergies Allergy/AdvReac Type Severity Reaction Status Date / Time Iodinated Contrast Media Allergy Unknown Verified 05/05/19 20:03 labetalol Allergy Unknown Verified 05/05/19 20:03 metoclopramide [From Reglan] Allergy Unknown Verified 05/05/19 20:03 - Social History Does the pt smoke?: Yes Smoking Status: Current every day smoker Does the pt drink ETOH?: No Does the pt have substance abuse?: No - Immunizations Immunizations are current?: Yes - POLST Patient has POLST: No POLST Status: Full Code PD ED PE NORMAL - Vitals Vital signs reviewed: Yes - General General: Alert and oriented X 3, No acute distress - HEENT HEENT: Moist mucous membranes - Neck Neck: Supple, no meningeal sign - Cardiac Cardiac: RRR - Respiratory Respiratory: No respiratory distress, Clear bilaterally - Abdomen Abdomen: Soft, Non tender, Non distended - Female Female : Courtesy Van Driver present (Dianna RN), Other (Thin white discharge. normal cervix. normal external exam) - Back Back: No CVA TTP - Derm Derm: Warm and dry, No rash - Extremities Extremities: No edema - Neuro Neuro: Alert and oriented X 3 Results - Vitals Vitals: Vital Signs - 24 hr 05/05/19 05/05/19 05/05/19 20:03 20:19 20:51 Temperature 36.5 C Heart Rate 87 Respiratory 14 17 16 Rate Blood Pressure 117/78 O2 Saturation 97 05/05/19 21:01 Temperature Heart Rate Respiratory 16 Rate Blood Pressure O2 Saturation Oxygen O2 Source Room air - Labs Labs: Microbiology 05/05/19 20:30 Wet Prep - Final Vaginal Laboratory Tests 05/05/19 20:20 Urine Color YELLOW Urine Clarity CLEAR Urine pH 6.5 Ur Specific [place] 1.020 Urine Protein NEGATIVE Urine Glucose (UA) NEGATIVE Urine Ketones NEGATIVE Urine Occult Blood NEGATIVE Urine Nitrite NEGATIVE Urine Bilirubin NEGATIVE Urine Urobilinogen 0.2 (NORMAL) Ur Leukocyte Esterase NEGATIVE Ur Microscopic Review NOT INDICATED Urine Culture Comments NOT INDICATED PD MEDICAL DECISION MAKING - ED course Complexity details: reviewed results, re-evaluated patient, considered differential, d/w patient ED course: Patient with bacterial vaginitis. Will treat with Flagyl. She is approximately 6 weeks and 4 days by bedside ultrasound. IUP present. heart rate unable to be obtained. She requested Zofran, cautioned regarding potential for cleft palate. She is accepting of this risk. Given Tenisha here. Patient counseled regarding signs and symptoms for which I believe and urgent re- evaluation would be necessary. Patient with good understanding of and agreement to plan and is comfortable going home at this time This document was made in part using voice recognition software. While efforts are made to proofread this document, sound alike and grammatical errors may occur. Testing was sent for gonorrhea and chlamydia as well Departure - Departure Disposition: 01 Home, Self Care Clinical Impression: Bacterial vaginitis Qualifiers: Weeks of gestation: less than 8 weeks Qualified Code(s): Z3A.01 - Less than 8 weeks gestation of Condition: Good Instructions: ED Vaginosis Bacterial Follow-Up: Rashid Faria MD [Provider Admit Priv/Credential] - Within 1 week Prescriptions: Metronidazole [Flagyl] 500 mg PO BID #14 tablet Comments: You appear to be approximately 6 weeks and 4 days along currently. Follow-up with OB for further care. Take all Flagyl until gone. Return if you worsen Discharge Date/Time: 05/05/19 21:07
[2019-05-05 20:29] LABS: BILIRUBIN,URINE NEGATIVE (NEGATIVE); GLUCOSE, URINE (UA) NEGATIVE (NEGATIVE); KETONES,URINE (UA) NEGATIVE (NEGATIVE); LEUKOCYTE ESTERASE, URINE NEGATIVE (NEGATIVE); NITRITE,URINE NEGATIVE (NEGATIVE); OCCULT BLOOD,URINE NEGATIVE (NEGATIVE); PH,URINE 6.5 PH (5.0-7.5); PROTEIN,URINE NEGATIVE (NEGATIVE); UROBILINOGEN,URINE 0.2 (NORMAL) E.U./dL (NORMAL)
[2019-05-05 20:33] LABS: CLARITY,URINE CLEAR (CLEAR)
[2019-05-05] MEDS ORDERED: ONDANSETRON ODT 4 MG TABLET TL STA (20:36)
[2019-05-05] MEDS ORDERED: metroNIDAZOLE 250 MG TABLET PO STA (20:55)
[2019-05-06 20:28] LABS: TRICHOMONAS VAGINALIS DNA NEGATIVE (NEGATIVE)
== END 2019-05-05 21:07 | disposition home or self-care (01) ==
LOC: ED 20:00
DX: O23.591 Infection of other part of genital tract in pregnancy, first trimester (principal); O16.1 Unspecified maternal hypertension, first trimester; O99.331 Smoking (tobacco) complicating pregnancy, first trimester; F17.200 Nicotine dependence, unspecified, uncomplicated; Z3A.01 Less than 8 weeks gestation of pregnancy
CPT/HCPCS: 81003; 87210; 87491; 87591; 87661; 99283; 99284; A9270; Q0162; 81001; 87086

== ENCOUNTER 2019-05-11 11:39 | Emergency (ER) | payer MEDICAID ==
[2019-05-11 12:57] LABS: BASOPHILS # (AUTO) 0.1 10^3/uL (0.0-0.1); BASOPHILS % (AUTO) 0.6 %; EOSINOPHILS # (AUTO) 0.3 10^3/uL (0.0-0.7); EOSINOPHILS % (AUTO) 3.3 %; HGB - HEMOGLOBIN 13.2 g/dL (12.0-16.0); LYMPHOCYTES % (AUTO) 24.2 %; MEAN CORPUSCULAR HEMOGLOBIN 27.6 pg (27.0-31.0); MEAN CORPUSCULAR HGB CONC 32.9 g/dL (32.0-36.0); MEAN CORPUSCULAR VOLUME 83.9 fL (81.0-99.0); MEAN PLATELET VOLUME 10.4 fL (7.9-10.8); MONOCYTES # (AUTO) 0.7 10^3/uL (0.0-1.0); MONOCYTES % (AUTO) 7.9 %; NEUTROPHILS # (AUTO) 5.2 10^3/uL (1.5-6.6); NEUTROPHILS % (AUTO) 63.6 %; PLT - PLATELET COUNT 251 10^3/uL (130-450); RED BLOOD COUNT 4.78 10^6/uL (4.20-5.40); RED CELL DISTRIBUTION WIDTH 12.6 % (12.0-15.0); WHITE BLOOD COUNT 8.2 x10^3/uL (4.8-10.8)
[2019-05-11 13:05] LABS: BILIRUBIN,URINE NEGATIVE (NEGATIVE); GLUCOSE, URINE (UA) NEGATIVE (NEGATIVE); KETONES,URINE (UA) NEGATIVE (NEGATIVE); LEUKOCYTE ESTERASE, URINE NEGATIVE (NEGATIVE); NITRITE,URINE NEGATIVE (NEGATIVE); OCCULT BLOOD,URINE SMALL (NEGATIVE); PROTEIN,URINE NEGATIVE (NEGATIVE); UROBILINOGEN,URINE 0.2 (NORMAL) E.U./dL (NORMAL)
[2019-05-11 13:06] LABS: CLARITY,URINE HAZY (CLEAR)
[2019-05-11 13:14] LABS: ALBUMIN/GLOBULIN RATIO 1.3 (1.0-2.2); ALKALINE PHOSPHATASE 45 IU/L (42-121); ALT ALANINE AMINOTRANSFERASE 15 IU/L (10-60); AST ASPARTATE AMINOTRANSFERASE < 10 IU/L (10-42); BILIRUBIN,TOTAL 0.4 mg/dL (0.2-1.0); BUN - BLOOD UREA NITROGEN 12 mg/dL (6-20); CALCIUM 9.6 mg/dL (8.5-10.3); CARBON DIOXIDE - CO2 24 mmol/L (21-32); CHLORIDE 105 mmol/L (101-111); CREATININE 0.4 mg/dL (0.4-1.0); GFR - MDRD 198 (>89); GLUCOSE 78 mg/dL (70-100); LIPASE 25 U/L (22-51); SODIUM 137 mmol/L (135-145); TOTAL PROTEIN 7.1 g/dL (6.7-8.2)
[2019-05-11 13:15] LABS: BACTERIA,URINE Few /HPF (None Seen); RBC,URINE 0-5 /HPF (0-5); SQUAMOUS EPITHELIAL CELL,UR MOD Squamous (<= Few)
--- NOTE | 2019-05-11 14:22 | Ultrasound Report ---
Reason: pelvic pain, Procedure Date: 05/11/2019 Accession Number: [id number] / [id number] Procedure: US - OB First Trimester CPT Code: Final Report FULL RESULT: EXAM: FIRST TRIMESTER OBSTETRIC ULTRASOUND (Less than 11 weeks) EXAM DATE: 05/11/2019 02:10 PM. CLINICAL HISTORY: Pelvic pain, . LMP: Unknown. COMPARISONS: OB FIRST TRIMESTER 02/08/2018 1:33 AM. TECHNIQUE: Transabdominal and transvaginal ultrasound examination with static image documentation. CLINICAL DATES: EGA 9 weeks 0 days with ELIJAH 12/14/2019 based on LMP. ASSESSMENT: Gestational Sac: Single intrauterine. Mean gestational sac diameter: 19.1 mm = 6 weeks 6 days. Embryo: CRL (crown-rump length) 5.9 mm = 6 weeks 3 days. Cardiac activity: 123 beats per minute. Yolk sac: 2.6 mm. Amniotic fluid: Not accurately assessed at this gestational age. Early placenta: Not visible at this gestational age. Other: No perigestational fluid collection demonstrated. MATERNAL STRUCTURES: Uterus: Anteverted. Unremarkable. Cervix: Closed. Right Ovary/Adnexa: The ovary measures 3.7 x 2.8 x 2.4 cm, volume 13 cc. Unremarkable. Left Ovary/Adnexa: The ovary measures 3.3 x 2.6 x 2.0 cm, volume 9 cc. Unremarkable. Free Fluid: None. Other: None. IMPRESSION: 1. Single live intrauterine at EGA 6 weeks 3 days with ELIJAH 01/01/2020 based on crown-rump length, which is concordant with clinical dates. 2. No perigestational fluid collections detected. RADIA
[2019-05-11] MEDS ORDERED: ONDANSETRON 4 MG/2 ML VIAL IVP STA (15:48)
[2019-05-11] MEDS ORDERED: DEXTROSE 5%-0.9% NACL 1,000 ML IV SCH (16:00)
--- NOTE | 2019-05-11 16:50 | ED Physician Documentation ---
PD HPI FEMALE - Stated complaint Stated Complaint: CRAMPING/BLEEDING - Chief complaint Chief Complaint: Abd Pain - History obtained from History obtained from: Patient - History of Present Illness Timing - onset: Today Associated symptoms: Abdominal pain, Vaginal bleeding. 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 She has been vomiting with nausea for the past 3 to 4 days. She has been referred to [facility] [place] and has an appointment in 3 days. She is 4 para 3 spontaneous AB 1 and says with her prior she had to take Zofran because of persistent vomiting. She is 7 months now. She denies any dizziness and has not passed out. Denies of fever she has a bit of a stuffy nose but has a family member living in the house who has a cold. She is not been coughing. She also has a nasal lesionThat is bothering her and has bled. She has a history of MRSA. Review of Systems Constitutional: denies: Fever Nose: reports: Epistaxis, Other (Complains of a sore in the left nostril) Throat: reports: Sore throat GI: reports: Abdominal Pain, Nausea, Vomiting : reports: Vaginal bleeding, Now EGA (7 weeks 3 days). denies: Dysuria Neurologic: denies: Syncope PD PAST MEDICAL HISTORY - Past Medical History Past Medical History: Yes Cardiovascular: Hypertension, High cholesterol, Arrhythmia, Other Respiratory: None Neuro: None Endocrine/Autoimmune: None GI: None CONTROL ENGINEER: None : Kidney stones, Other HEENT: None Psych: None Musculoskeletal: None Derm: None - Past Surgical History Past Surgical History: Yes General: Appendectomy /CONTROL ENGINEER: section, Other - Present Medications Home Medications: Ambulatory Orders Medication Instructions Recorded Confirmed Metoprolol Tartrate 25 mg PO BID #60 tablet 02/02/18 05/12/18 Meclizine HCl 25 mg PO Q6H PRN #20 tab.chew 05/12/18 Ondansetron Odt [Zofran] 4 mg TL Q6H PRN #10 tablet 05/12/18 Cefpodoxime Proxetil 200 mg PO BID #20 tablet 12/16/18 Doxycycline Hyclate 100 mg PO BID #20 capsule 02/19/19 Hydrocodone/Acetaminophen 1 - 2 each PO Q6H PRN #14 tablet 03/15/19 [Hydrocodon-Acetaminophen 5-325] Ketorolac [Toradol] 10 mg PO Q6H #19 tablet 03/15/19 Phenazopyridine HCl 100 mg PO TID PRN #6 tablet 04/01/19 Sulfamethox/Trimeth 800/160 1 each PO BID #14 tablet 04/01/19 [Bactrim Ds 800/160] Metronidazole [Flagyl] 500 mg PO BID #14 tablet 05/05/19 Ondansetron Odt [Zofran] 4 mg TL Q6H PRN #4 tablet 05/11/19 - Allergies Allergies/Adverse Reactions: Allergies Allergy/AdvReac Type Severity Reaction Status Date / Time Iodinated Contrast Media Allergy Unknown Verified 05/05/19 20:03 labetalol Allergy Unknown Verified 05/05/19 20:03 metoclopramide [From Reglan] Allergy Unknown Verified 05/05/19 20:03 - Social History Does the pt smoke?: Yes Smoking Status: Current every day smoker Does the pt drink ETOH?: No Does the pt have substance abuse?: No - Immunizations Immunizations are current?: Yes - POLST Patient has POLST: No POLST Status: Full Code PD ED PE NORMAL - Vitals Vital signs reviewed: Yes - General General: Alert and oriented X 3, No acute distress, Well developed/nourished, Other (She does have an emesis bag on the bedside table next to her.) - HEENT HEENT: Atraumatic, PERRL, Other (There is nasal congestion. I do not see a discrete lesion in the left nostril but there is some hyperemia of the septal mucosa.) - Neck Neck: Supple, no meningeal sign, No adenopathy - Cardiac Cardiac: RRR, No murmur, Strong equal pulses - Respiratory Respiratory: No respiratory distress, Clear bilaterally - Abdomen Abdomen: Normal bowel sounds, Soft, Non tender, No organomegaly - Derm Derm: Normal color, No rash - Neuro Neuro: Alert and oriented X 3, No motor deficit, No sensory deficit, Normal speech - Psych Psych: Normal mood, Normal affect Results - Vitals Vitals: Vital Signs - 24 hr 05/11/19 05/11/19 11:51 17:00 Temperature 37.2 C 36.9 C Heart Rate 94 68 Respiratory 18 16 Rate Blood Pressure 118/73 117/71 O2 Saturation 97 100 Oxygen O2 Source Room air - Labs Labs: Laboratory Tests 05/11/19 05/11/19 05/11/19 12:49 12:52 12:52 WBC 8.2 RBC 4.78 Hgb 13.2 Hct 40.1 MCV 83.9 MCH 27.6 MCHC 32.9 RDW 12.6 Plt Count 251 MPV 10.4 Neut # (Auto) 5.2 Lymph # (Auto) 2.0 Nelson # (Auto) 0.7 Eos # (Auto) 0.3 Baso # (Auto) 0.1 Absolute Nucleated RBC 0.00 Nucleated RBC % 0.0 Sodium 137 Potassium 3.9 Chloride 105 Carbon Dioxide 24 Anion Gap 8.0 BUN 12 Creatinine 0.4 Estimated GFR (MDRD) 198 Glucose 78 Calcium 9.6 Total Bilirubin 0.4 AST < 10 L ALT 15 Alkaline Phosphatase 45 Total Protein 7.1 Albumin 4.0 Globulin 3.1 Albumin/Globulin Ratio 1.3 Lipase 25 HCG, Quant Urine Color YELLOW Urine Clarity HAZY Urine pH 6.0 Ur Specific Sapello >=1.030 H Urine Protein NEGATIVE Urine Glucose (UA) NEGATIVE Urine Ketones NEGATIVE Urine Occult Blood SMALL H Urine Nitrite NEGATIVE Urine Bilirubin NEGATIVE Urine Urobilinogen 0.2 (NORMAL) Ur Leukocyte Esterase NEGATIVE Urine RBC 0-5 Urine WBC 0-3 Ur Squamous Epith Cells MOD Squamous H Urine Bacteria Few Ur Microscopic Review INDICATED Urine Culture Comments NOT INDICATED Blood Type 05/11/19 05/11/19 12:52 12:53 WBC RBC Hgb Hct MCV MCH MCHC RDW Plt Count MPV Neut # (Auto) Lymph # (Auto) Nelson # (Auto) Eos # (Auto) Baso # (Auto) Absolute Nucleated RBC Nucleated RBC % Sodium Potassium Chloride Carbon Dioxide Anion Gap BUN Creatinine Estimated GFR (MDRD) Glucose Calcium Total Bilirubin AST ALT Alkaline Phosphatase Total Protein Albumin Globulin Albumin/Globulin Ratio Lipase HCG, Quant 57419.00 Urine Color Urine Clarity Urine pH Ur Specific Sapello Urine Protein Urine Glucose (UA) Urine Ketones Urine Occult Blood Urine Nitrite Urine Bilirubin Urine Urobilinogen Ur Leukocyte Esterase Urine RBC Urine WBC Ur Squamous Epith Cells Urine Bacteria Ur Microscopic Review Urine Culture Comments Blood Type O POSITIVE - Rads (name of study) pelvic u/s Radiology: See rad report (6 wk 3 day live IUP) PD MEDICAL DECISION MAKING - ED course Complexity details: reviewed results, d/w patient ED course: The patient has normal CBC. The urinalysis was contaminated. She says she is having some brown vaginal spotting there is a live intrauterine and her blood type is O+. She has a follow-up appointment with the OB on and she is encouraged to keep that appointment. I will give her just a couple of doses of Zofran. Late entry: I had intended to provide a prescription for mupirocin ointment but the patient left the emergency department without that prescription having been given to her. Departure - Departure Disposition: 01 Home, Self Care Clinical Impression: Vaginal bleeding affecting early , Hyperemesis gravidarum Condition: Good Instructions: Bleeding Early Preg Follow-Up: Anushka Garcia MD [Provider Admit Priv/Credential] - Prescriptions: Ondansetron Odt [Zofran] 4 mg TL Q6H PRN #4 tablet PRN Reason: Nausea / Vomiting Comments: Use the Zofran if absolutely needed to control the nausea and vomiting. Make sure that you are drinking plenty of liquids. Follow-up with your OB appointment on as scheduled. Your due date is Jan 01, 2020. Discharge Date/Time: 05/11/19 17:01
[2019-05-11 17:02] VITALS: BP 117/71
== END 2019-05-11 17:01 | disposition home or self-care (01) ==
LOC: ED 11:39
DX: O20.9 Hemorrhage in early pregnancy, unspecified (principal); O21.0 Mild hyperemesis gravidarum; O99.89 Other specified diseases and conditions complicating pregnancy, childbirth and the puerperium; R09.81 Nasal congestion; O10.911 Unspecified pre-existing hypertension complicating pregnancy, first trimester; O99.331 Smoking (tobacco) complicating pregnancy, first trimester; Z3A.01 Less than 8 weeks gestation of pregnancy
CPT/HCPCS: 36415; 76801; 76817; 80053; 81001; 81003; 83690; 84702; 85025; 86900; 86901; 87086; 96361; 96374; 99284

== ENCOUNTER 2019-05-22 18:44 | Emergency (ER) | payer MEDICAID ==
[2019-05-22 18:57] VITALS: BP 125/84
[2019-05-22 19:06] LABS: BASOPHILS % (AUTO) 0.3 %; EOSINOPHILS # (AUTO) 0.3 10^3/uL (0.0-0.7); EOSINOPHILS % (AUTO) 2.5 %; HGB - HEMOGLOBIN 12.7 g/dL (12.0-16.0); MEAN CORPUSCULAR VOLUME 85.4 fL (81.0-99.0); MEAN PLATELET VOLUME 10.5 fL (7.9-10.8); MONOCYTES # (AUTO) 0.7 10^3/uL (0.0-1.0); MONOCYTES % (AUTO) 6.1 %; NEUTROPHILS # (AUTO) 8.8 10^3/uL (1.5-6.6); NEUTROPHILS % (AUTO) 73.6 %; PLT - PLATELET COUNT 228 10^3/uL (130-450); RED BLOOD COUNT 4.38 10^6/uL (4.20-5.40); RED CELL DISTRIBUTION WIDTH 12.6 % (12.0-15.0)
[2019-05-22 19:10] LABS: BILIRUBIN,URINE NEGATIVE (NEGATIVE); CLARITY,URINE CLEAR (CLEAR); GLUCOSE, URINE (UA) NEGATIVE (NEGATIVE); HCG UR QUAL POSITIVE; KETONES,URINE (UA) NEGATIVE (NEGATIVE); LEUKOCYTE ESTERASE, URINE NEGATIVE (NEGATIVE); NITRITE,URINE NEGATIVE (NEGATIVE); OCCULT BLOOD,URINE NEGATIVE (NEGATIVE); PROTEIN,URINE NEGATIVE (NEGATIVE); UROBILINOGEN,URINE 0.2 (NORMAL) E.U./dL (NORMAL)
[2019-05-22 19:21] LABS: ALBUMIN 3.6 g/dL (3.2-5.5); ALBUMIN/GLOBULIN RATIO 1.2 (1.0-2.2); ALKALINE PHOSPHATASE 51 IU/L (42-121); ALT ALANINE AMINOTRANSFERASE 14 IU/L (10-60); AST ASPARTATE AMINOTRANSFERASE < 10 IU/L (10-42); BILIRUBIN,TOTAL 0.2 mg/dL (0.2-1.0); BUN - BLOOD UREA NITROGEN 13 mg/dL (6-20); CALCIUM 8.8 mg/dL (8.5-10.3); CARBON DIOXIDE - CO2 22 mmol/L (21-32); CHLORIDE 105 mmol/L (101-111); CREATININE 0.5 mg/dL (0.4-1.0); GFR - MDRD 153 (>89); GLUCOSE 119 mg/dL (70-100); LIPASE 26 U/L (22-51); SODIUM 135 mmol/L (135-145); TOTAL PROTEIN 6.7 g/dL (6.7-8.2)
== END 2019-05-22 21:04 | disposition left against medical advice (07) ==
LOC: ED 18:44
DX: Z53.21 Procedure and treatment not carried out due to patient leaving prior to being seen by health care provider (principal)
CPT/HCPCS: 36415; 80053; 81001; 81003; 81025; 83690; 85025; 87086